=== PATIENT | male | born 1960 | race Caucasian/White ===

== ENCOUNTER 2016-07-21 17:09 | Emergency (ER) | payer OTHER ==
[~2016-07-21] VITALS: Ht 172.7 cm; Wt 124.8 kg
[~2016-07-21 17:09] MED LIST: ALBU1AER9 INH; CYAN10004 PO; ENAL10TA88 PO; EXEN1INJ3 SQ; GLC850 PO; GLIP-199 PO; HYG/25 PO; MULTTAB5 PO; NRN800 PO; OXYC-164 PO; POTA10CA28 PO; PRAM0.129 PO; SIMV10TA2 PO; VLT50 PO
[2016-07-21 17:14] VITALS: TEMP 36.7; Ht 172.7 cm; Wt 124.8 kg
[2016-07-21] MEDS ORDERED: CLON0.5T3 PO (17:33)
[2016-07-21] MEDS ORDERED: OXYC-164 PO (17:33)
[2016-07-21] MEDS ORDERED: OXYC20TA50 PO (17:33)
--- NOTE | 2016-07-21 18:13 | EMERGENCY ROOM VISIT NOTE ---
ED Visit Note First contact with patient: 17:19 The patient was seen and examined with Dewayne Brennan PA-C. I agree with the history, physical and findings. Please see the note for disposition and details. The patient had a negative compression test. He had a positive Spurling on the left. Distraction test was negative. He was neurovascularly intact. He is on a significant amount of pain medication and is under good control pain management. He was upset that pain management could not addresses issues 24 7. I had several pertinent questions for the patient but he insisted on starting at the very beginning, when he was 20 years old and tried to tell me the exact story. He had done this with Dewayne and Dewayne had spent a significant amount of time with him going through all the details and he summarizes forming. The patient has significant pain. He is pending surgery at [facility]. The patient is on a contract with pain management. As I tried to direct the patient to answer specific questions for me he kept going back to his story and was not answering the questions. Unfortunately there was many patients in the emergency department and one that was critically ill and I had to attend to this patient immediately. When I asked him to focus on the details as asking him the patient refused to answer anymore questions stating that no one gives his any time. I did try to reassure him that the information that he provided to Dewayne over the extensive interview and history was the same and documented. The patient would not answer any further questions and therefore this limits our ability to treat him. He did not want anything else done and wanted to be discharged. The patient has demonstrated no significant defect in the decision-making capacity to make choices. The encounter had a good level of communication with language the patient can easily understand. I feel trust was present and conveyed that our action/intentions were the best interest of the patient. The patient was given all relevant information and reiterated the explained risks and benefits. The patient would not explain his reasoning for refusing treatment. The patient possesses and expresses a set of values and goals, the ability to communicate and understand, and an ability to reason and deliberate. Despite acting emphatically, attentively and with the utmost patient's the patient declined further treatment. I offered options, negotiated, and explored every reasonable choice. I must respect the patient's autonomy and that they feel that their choices are best for them despite the associated risks of leaving without completing the evaluation.
[2016-07-21 18:24] VITALS: BP 168/82; PULSE 66; O2SAT 95
--- NOTE | 2016-07-22 02:01 | EMERGENCY ROOM VISIT NOTE ---
ED Visit Note First contact with patient: 17:19 Chief Complaint: Left arm pain. History of Present Illness: Mr. Redd is a 55-year-old white male who ambulates into the ED accompanied by a male friend complaining of left lower arm pain. Mr. Redd provided an extensive history of ongoing cervical disc disease starting when he was in his 20s. He does report that he is seeing a back specialist at [facility] and then go who is to perform surgery on his cervical disc disease. He then goes on to report that he is under the care of pain management and has been taking OxyContin and oxycodone for his ongoing pain but is still having pain. He reports he contacted pain management to increase his pain medications and he reports they refused. Patient reports over the last few days she has been having increasing pain over the medial aspect of the mid to lower forearm and into the left side of the hand. He reports a day before the onset of pain he brushed his arm up against something that he could not remember but did not feel he significantly injured this area. He describes his pain as a deep achy sensation extending from the elbow to the wrist. He rates his discomfort 10/10. His pain is nonradiating. He has not identified any aggravating or alleviating factors related to the pain. He reports she's been taking his prescribed medications without relief of his discomfort. Associated with his pain he reports he is having hand paresthesias in all the fingers of his left hand. He also reports when he turns his neck slightly to the right he feels clicking and popping in the neck. This does not increase his discomfort. He denies fevers, chills, sweats, skin eruptions, skin color changes, left upper extremity weakness/numbness/tingling, shortness of breath, abdominal pain , nausea/vomiting, decreased appetite, or swelling Review of Systems: As noted above in history of present illness. 8 body systems were reviewed and found to be negative as noted above. Past Medical History: (1) Asthma, Unspecified (2) Chronic back pain (3) Chronic low back pain (4) Diabetes (5) Dizziness (6) Dyslipidemia (7) HTN (hypertension) (8) Left flank pain (9) Morbid Obesity (10) Sinusitis Surgical Problems: (1) Hx of cholecystectomy (2) S/P ventral herniorrhaphy Current Medications: Medications Dose Route/Sig Max Daily Dose Days Date Category Oxycodone Hcl 10 Mg Tab 1 Tab PO QID 07/21/16 Reported Klonopin (Clonazepam) 0.5 Mg Tab 0.25 Mg PO BID 07/21/16 Reported Oxycontin (Oxycodone Hcl) 20 Mg Tab 20 Mg PO BID 07/21/16 Reported Metformin HCl 850 Mg Tab 1 Tab PO BID 01/07/16 Reported Centrum (Multiple Vitamins W/ Minerals) 1 Tab Tab 1 Tab PO DAILY 08/27/15 Reported Glipizide Er (Glipizide) 10 Mg Tab 1 Tab PO DAILY 08/27/[address] (Diclofenac Sod) 50 Mg Tabec 50 Mg PO DAILY 05/25/15 Reported Mirapex (Pramipexole Dihydrochloride) 0.125 Mg Tab 0.125 Mg PO DAILY 05/25/15 Reported Bydureon (Exenatide) 2 Mg Inj 2 Mg SQ WK 05/25/15 Reported Hygroton (Chlorthalidone) 25 Mg Tab 12.5 Mg PO BID 05/25/15 Reported Gabapentin 800 Mg Tab 800 Mg PO BID 05/25/15 Reported Proair Hfa (Albuterol) Aers 2 Puffs INH Q4H PRN 04/25/13 Reported Micro-K Ext Rel (Potassium Chloride) 10 Meq Capcr 10 Meq PO BID 04/25/13 Reported Vasotec (Enalapril Maleate) 10 Mg Tab 10 Mg PO DAILY 07/13/12 Reported Zocor (Simvastatin) 10 Mg Tab 10 Mg PO QPM 07/13/12 Reported Vitamin B-12 1000 Mcg (Cyanocobalamin) 1,000 Mcg Tab 1,000 Mcg PO Q2D 11/26/11 Reported Allergies to Medications: Diflunisal. Social History: Patient is not currently employed; he lives with his and feels safe in his home environment; he denies alcohol use. Physical Examination: Vital Signs: Date Time Temp Pulse Resp B/P Pulse Ox O2 Delivery O2 Flow Rate FiO2 07/21/16 18:24 66 18 168/82 95 07/21/16 17:14 36.7 69 18 176/85 95 Room Air GENERAL: 55-year-old male in mild distress due to pain, nontoxic-appearing, afebrile and hemodynamically stable. NEUROLOGICAL: Awake, alert and oriented to person, place and time. Answering questions appropriately and following commands. Normal gait. Good hand eye coordination. BACK: Mild diffuse tenderness throughout the lower cervical and upper thoracic spine. No bony deformities, bony crepitus, swelling, ecchymosis or step-offs. Full range of motion of the cervical spine. THORAX: Lungs sounds are clear to auscultation and equal bilaterally with symmetrical chest wall. ABDOMEN: Obese, soft and nontender. Decreased bowel sounds in all quadrants. No guarding, rigidity or organomegaly. RIGHT UPPER EXTREMITY: No gross bony deformity. No tenderness throughout the joints. No swelling or erythema within the joints. Mild tenderness from the right elbow extending distally to the wrist. No skin eruptions. Full range of motion in flexion and extension of the elbow, pronation and supination of forearm, flexion, extension and radial and ulnar deviations of the wrist. Throughout the hand the skin was warm and pink and capillary refill is brisk. He was able to distinguish light sensations in all dermatomes. Pulses were intact and equal bilaterally. Was not able to produce deep tendon reflexes. ED Course: Patient is assessed as noted above. Patient was educated about today's findings. Patient's case was reviewed with Dr. Sheffield; he apparently assessed the patient we agreed on diagnostic approach, treatment, disposition and plan. Patient was educated about today's findings and instructed on his treatment plan ; he verbalizes understanding and agreement with this plan although he was upset that no additional narcotics would be prescribed. Clinical Impression: Cervical radiculopathy. Disposition: Patient discharged home in stable condition; prior to departure he was reassessed and subjectively reported he was feeling the same. Plan: Patient was encouraged to continue his current medications as prescribed. Patient was encouraged to follow-up with his pain management team or his surgical team for reevaluation and continued care and treatment. Patient was encouraged return the ED for worsening pain, fevers, arm weakness/ numbness or any new/concerning symptoms.
[2016-08-22] MEDS ORDERED: SERT50TA PO (09:30)
== END 2016-07-21 18:25 | disposition home or self-care (01) ==
LOC: C.EDB 17:11 → C.EDD 18:25
DX: M54.12 Radiculopathy, cervical region (principal); M50.90 Cervical disc disorder, unspecified, unspecified cervical region; R20.9 Unspecified disturbances of skin sensation; G89.29 Other chronic pain; M54.5 Low back pain; E11.9 Type 2 diabetes mellitus without complications; E78.5 Hyperlipidemia, unspecified; I10 Essential (primary) hypertension; E66.01 Morbid (severe) obesity due to excess calories

== ENCOUNTER 2017-06-09 05:26 | Emergency (ER) | payer OTHER ==
[~2017-06-09] VITALS: Ht 172.7 cm; Wt 140.1 kg
[~2017-06-09 05:26] MED LIST changes: +CLON0.5T3 PO; -GLC850 PO; +METF850T10 PO; +OXYC20TA50 PO; +PRAM0.1212 PO; -PRAM0.129 PO; +SERT50TA PO
[2017-06-09 05:33] VITALS: Ht 172.7 cm; Wt 140.1 kg
[2017-06-09] MEDS ORDERED: ACETAMINOPHEN 500 MG TAB PO STA (05:43)
[2017-06-09] MEDS ORDERED: SODIUM CHLORIDE 0.9% 500ML 500 ML IV STA (05:43)
[2017-06-09] MEDS ORDERED: METOCLOPRAMIDE HCL INJ 5 MG/ML 2 ML VIAL IV STA (05:43)
[2017-06-09] MEDS ORDERED: DiphenhydrAMINE HCL 50 MG/ML VIAL IV STA (05:43)
[2017-06-09] MEDS ORDERED: KETOROLAC TROMETHAMINE 30 MG/ML VIAL IV STA (05:43)
[2017-06-09] MEDS ORDERED: ALBU18002 INH (06:12)
[2017-06-09] MEDS ORDERED: LIRA18IN INJ (06:12)
[2017-06-09] MEDS ORDERED: OXYC-738 PO (06:12)
[2017-06-09 06:18] LABS: BASO % 0.4 %; BASO ABS # 0.04 K/uL (0-0.2); EOS % 2.3 %; EOS ABS # 0.25 K/uL (0-0.5); HEMOGLOBIN 14.3 g/dL (14.0-18.0); IG# 0.03 K/uL (0.00-0.02); LYMPH % 16.4 %; LYMPH ABS # 1.75 K/uL (1.2-3.4); MEAN CELL VOLUME 87.5 fL (80-100); MEAN CORPUSCULAR HEMOGLOBIN 29.8 pg (25-34); MEAN PLATELET VOLUME 10.5 fL (7.4-10.4); MONO % 12.8 %; MONO ABS # 1.36 K/uL (0.11-0.59); NEUT % 67.8 %; NEUT ABS # 7.23 K/uL (1.4-6.5); PLATELET COUNT 223 K/uL (130-400); RED CELL DISTRIBUTION WIDTH CV 14.3 % (11.5-14.5); WHITE BLOOD COUNT 10.66 K/uL (4.8-10.8)
--- NOTE | 2017-06-09 06:34 | DIAGNOSTIC IMAGING REPORT ---
CHEST ONE VIEW PORTABLE CLINICAL HISTORY: feels sick COMPARISON STUDY: Chest radiograph January 07, 2016. FINDINGS: Lung volumes are normal. No pneumothorax or pleural effusion is noted. There is no consolidation. Note is made of mild cardiomegaly without evidence for pulmonary edema. Postoperative findings within the cervical spine are incidentally noted. IMPRESSION: No acute cardiopulmonary findings. Electronically signed by: Adama Roldan M.D. 06/09/2017 6:33 AM Dictated Date/Time: 06/09/2017 6:32 AM
[2017-06-09 06:35] LABS: ALBUMIN 3.7 gm/dl (3.4-5.0); ALT/SGPT 64 U/L (12-78); BLOOD UREA NITROGEN 15 mg/dl (7-18); CALCIUM 8.7 mg/dl (8.5-10.1); CARBON DIOXIDE 34 mmol/L (21-32); CREATININE 1.14 mg/dl (0.60-1.40); GLUCOSE 176 mg/dl (70-99); POTASSIUM 3.3 mmol/L (3.5-5.1); SODIUM 137 mmol/L (136-145)
[2017-06-09 06:38] LABS: INFLUENZA B ANTIGEN Neg for Influ B (NEG)
[2017-06-09 06:40] LABS: ALKALINE PHOSPHATASE 66 U/L (45-117); AST/SGOT 44 U/L (15-37); CKMB 1.1 ng/ml (0.5-3.6); TOTAL PROTEIN 7.9 gm/dl (6.4-8.2)
--- NOTE | 2017-06-09 06:46 | EMERGENCY ROOM VISIT NOTE ---
ED Visit Note First contact with patient: 05:38 I saw this patient in conjunction with Shauna Chowdhury PA-C. I agree with her decision making and treatment plan.
[2017-06-09 06:48] VITALS: BP 151/96; PULSE 89; TEMP 37.6; O2SAT 94
--- NOTE | 2017-06-09 06:49 | EMERGENCY ROOM VISIT NOTE ---
History First contact with patient: 05:38 Chief Complaint: PAIN (GENERALIZED) Stated Complaint: PAIN FOR HEAD TO TOES,FEELS LIKE FOOD POISON History of Present Illness The patient is a 56 year old male who presents to the Emergency Room with complaints of generalized body aches and pains for the past few weeks. Patient states he had neck surgery a few months ago. No complications currently. Patient states he thinks he might have the flu or a GI bug. Patient denies chest pain, dyspnea, abdominal pain, fever, chills, cough, congestion. He states that he might have pneumonia. He states he has not felt right for the past several months. He has not seen his family care doctor for this yet. He is tolerating p.o. fluids and food. Review of Systems An 10 system review of systems was completed with positives and pertinent negatives listed in the HPI. Past Medical/Surgical History Medical Problems: (1) Asthma, Unspecified (2) Chronic back pain (3) Chronic low back pain (4) Diabetes (5) Dizziness (6) Dyslipidemia (7) HTN (hypertension) (8) Left flank pain (9) Morbid Obesity (10) Sinusitis Surgical Problems: (1) Hx of cholecystectomy (2) S/P ventral herniorrhaphy Family History FH: cancer Social History Smoking Status: Never Smoker Alcohol Use: none Drug Use: none Marital Status: Housing Status: lives with significant other Occupation Status: disabled Current/Historical Medications Scheduled Chlorthalidone (Hygroton), 12.5 MG PO BID Clonazepam (Klonopin), 0.25 MG PO BID Cyanocobalamin (Vitamin B-12 1000 Mcg), 1,000 MCG PO Q2D Diclofenac Sod (Diclofenac Sodium Dr), 50 MG PO BID Enalapril (Vasotec), 10 MG PO DAILY Exenatide (Bydureon), 2 MG SQ WK Gabapentin (Gabapentin), 800 MG PO QID Glipizide (Glipizide Er), 1 TAB PO DAILY Metformin HCl (Metformin HCl), 1 TAB PO BID Multiple Vitamins W/ Minerals (Centrum), 1 TAB PO DAILY Oxycodone Hcl (Oxycontin), 20 MG PO BID Oxycodone Hcl (Oxycodone Hcl), 1 TAB PO QID Potassium Chloride (Micro-K Ext Rel), 10 MEQ PO BID Pramipexole (Mirapex), 0.125 MG PO DAILY Sertraline (Zoloft), 1 TAB PO DAILY Simvastatin (Zocor), 10 MG PO QPM Scheduled PRN Albuterol (Proair Hfa), 2 PUFFS INH Q4H PRN for Wheezing Physical Exam Vital Signs Date Time Temp Pulse Resp B/P (MAP) Pulse Ox O2 Delivery O2 Flow Rate FiO2 06/09/17 05:33 37.8 99 18 193/100 94 Room Air Physical Exam VITALS: Vitals are noted on the nurse's note and reviewed by myself. Vital signs low-grade fever and hypertensive. GENERAL: Pleasant male ambulating without difficulties, in no acute distress, nondiaphoretic, well-developed well-nourished. SKIN: The skin was without rashes, erythema, edema, or bruising. There is no tenting of the skin. Capillary reflex less than 2 seconds. HEAD: Normocephalic atraumatic. EARS: External auditory canals clear, tympanic membranes pearly lopez without erythema or effusion bilaterally. EYES: Pupils equal round and reactive to light and accommodation. Conjunctivae without injection, sclerae without icterus. Extraocular movements intact. NOSE: Patent, turbinates without inflammation or discharge. No sinus tenderness. MOUTH: Mucous membranes moist. Pharynx without erythema or exudate. Uvula midline. Airway patent. Tongue does not deviate. NECK: Supple without nuchal rigidity. No lymphadenopathy. No thyromegaly. Cervical spine is nontender. No JVD. HEART: Regular rate and rhythm LUNGS: Clear to auscultation bilaterally without wheezes, rales or rhonchi. No retractions or accessory muscle use. ABDOMEN: Positive bowel sounds x 4. Normal tympanic percussion. Soft, protuberant, obese, nontender, without masses or organomegaly. Johnson sign negative. No guarding or rebound tenderness. No CVA tenderness MUSCULOSKELETAL: No muscle atrophy, erythema, or edema noted. NEURO: Patient was alert and oriented to person place and time. Normal sensation to light and sharp touch. No focal neurological deficits. Medical Decision & Procedures Laboratory Results Test 06/09/17 05:43 Creatine Kinase MB Ratio (0-3.0) ED Course Prior records/ancillary studies reviewed and summarized above. Nursing notes reviewed. Additional history obtained from family. The patient's history was concerning for generalized body aches and pains for the past few months. Differential diagnosis: Etiologies such as metabolic, infection, hypo/hyperglycemia, electrolyte abnormalities, cardiac sources, intracerebral event, toxicologic, neurologic, as well as others were entertained. Physical examination: As above. ER treatment provided: IV Lock Tylenol, Reglan, Benadryl, IV fluids On reassessment the patient felt better. Diagnostics interpretation by me: ECG: Poor baseline, normal sinus, normal intervals, no acute ST-T wave changes. Impression sinus tachycardia of 100 interpreted by myself The labs revealed negative flu. Hyperglycemia without DKA. Stable H&H. Negative troponin. Imaging studies: Chest x-ray with no acute consolidation, pneumothorax or free of my interpretation Exam and history seem consistent with patient's ongoing body aches and pains and nausea. He does suffer from fibromyalgia. This could be exacerbation of this. He felt better to be medicated as above. No pneumonia. He has had poorly controlled diabetes for quite some time. He states his sugars about normal for him. He was advised to keep better control of his blood sugars and see family care in the next few days. Patient did not have acute abdomen on exam. He is well-appearing. He is tolerating fluids. He was advised to return to the ER immediately for chest pain, difficulty breathing, abdominal pain, worsening signs or symptoms or as needed. By the evaluation outlined above emergent etiologies such as infection, electrolyte abnormalities, cardiac sources, intracerebral event, toxologic, neurologic, abnormalities blood glucose , metabolic, as well as others were deemed relatively unlikely. The pt informed about the findings as listed above. All questions were answered and pleased with the treatment. Return instructions were outlined and the patient was discharged in stable condition. Referral: The patient was referred back to primary care physician for follow-up in 2 to 3 days for a recheck of the current condition. Case reviewed with my attending The chart was completed utilizing [employer] Speech voice recognition software. Grammatical errors, random word insertions, pronoun errors, and incomplete sentences are an occassional consequence of this system due to software limitations, ambient noise, and hardware issues. Any formal questions or concerns about the content, text, or information contained within the body of this dictation should be directly addressed to the physician press assistant and feeder for clarification. Medical Decision As above Medication Reconcilliation Current Medication List: was personally reviewed by me Blood Pressure Screening Patient's blood pressure: Elevated blood pressure Blood pressure disposition: Elevated BP felt to be situational Impression Primary Impression: Body aches Additional Impressions: Nausea Hyperglycemia Departure Information Dispostion Home / Self-Care Condition GOOD Referrals No Doctor, Assigned (PCP) Patient Instructions My [facility] Care Thread Additional Instructions Monitor your blood sugar. It was high today. Ibuprofen(Motrin, Advil) may be used for fever or pain. Use 600mg every six hours as needed. Take with food. Avoid using more than 2400mg in a 24 hour period. Do not use 2400mg per day for more than three consecutive days without physician direction. Prolonged inappropriate use can lead to stomach upset or ulcers. (AND/OR) Acetaminophen(Tylenol) may be used for fever or pain. Use 1000mg every six hours as needed. Avoid using more than 3000mg in a 24 hour period. Rest and drink plenty of fluids as tolerated. Continue current medications. Avoid strenuous activities and anything that worsens your pain. Resume normal activities once your symptoms resolve. Return to the ER immediately for abdominal pain, vomiting, fevers, chest pains, difficulty breathing, worsening of your condition, or as needed. Follow up with your primary physician in 2-3 days for a recheck of your current condition. Problem Qualifiers
== END 2017-06-09 07:10 | disposition home or self-care (01) ==
LOC: C.EDB 05:29 → C.EDA 07:10
DX: M79.1 Myalgia (principal); R11.0 Nausea; E11.65 Type 2 diabetes mellitus with hyperglycemia; J45.909 Unspecified asthma, uncomplicated; E78.5 Hyperlipidemia, unspecified; I10 Essential (primary) hypertension; Z79.899 Other long term (current) drug therapy

== ENCOUNTER 2019-03-11 14:21 | Inpatient (IN) ==
[2019-03-11] MEDS ORDERED: SODIUM CHLORIDE 0.9% 1000ML 1,000 ML IV ONE (16:07)
[2019-03-11] MEDS ORDERED: DAPTOmycin 500 MG VIAL IV STA (16:11)
[2019-03-11] MEDS ORDERED: PIPERACILLIN/TAZOBACTAM 4.5 GM/120 ML BAG IV ONE (16:16)
[2019-03-11] MEDS ORDERED: PIPERACILL/TAZOBAC CONSULT ACTIVE PRN (16:16)
[2019-03-11 16:48] LABS: Appearance Urine Clear (Clear); Bacteria Urine Automated Negative (Negative); Bilirubin Urine Negative (Negative); Blood Urine Negative (Negative); Color Urine Dark Yellow; Glucose Urine UA Negative (Negative); Ketones Urine Negative (Negative); Leukocyte Esterase Urine Trace (Negative); Nitrite Urine Negative (Negative); Protein Urine Trace (Negative); RBC Urine Automated 0-4 /hpf (0-4); Specific Gravity Urine 1.022 (1.000-1.030); Urobilinogen Urine Negative (Negative)
--- NOTE | 2019-03-11 16:55 | Emergency Department Note ---
ED Visit Note I saw this patient in conjunction with Dr. Car, and agree with the impression and assessment as outlined in his documentation. For all pertinent findings and details regarding this patient's care please see his documentation.. Resident Activity Tracking Resident Involvement: Resident Care Provided Care Provided: Adult ED
[2019-03-11 16:57] LABS: Basophils # (auto) 0.02 K/uL (0-0.2); Basophils % (auto) 0.1 %; Eosinophils # (auto) 0.14 K/uL (0-0.5); Eosinophils % (auto) 0.9 %; Hematocrit (blood only) 35.4 % (42-52); Hemoglobin 11.5 g/dL (14.0-18.0); Immature Granulocytes # (auto) 0.05 K/uL (0.00-0.02); Immature Granulocytes % (auto) 0.3 %; Lymphocytes # (auto) 2.02 K/uL (1.2-3.4); Lymphocytes % (auto) 13.6 %; Mean Corpuscular Hemoglobin 28.5 pg (25-34); Mean Corpuscular Hgb Conc 32.5 g/dL (32-36); Mean Corpuscular Volume 87.8 fL (80-100); Mean Platelet Volume 10.5 fL (7.4-10.4); Monocytes # (auto) 1.32 K/uL (0.11-0.59); Monocytes % (auto) 8.9 %; Neutrophils # (auto) 11.33 K/uL (1.4-6.5); Neutrophils % (auto) 76.2 %; Platelet Count 299 K/uL (130-400); RDW Standard Deviation 48.6 fL (36.4-46.3); Red Blood Count 4.03 M/uL (4.7-6.1); White Blood Count 14.88 K/uL (4.8-10.8)
[2019-03-11] MEDS ORDERED: DAPTOmycin 375 MG in SYRINGE 0 ML IV ONE (17:00)
[2019-03-11 17:17] LABS: INR 2.1 (0.9-1.1); Partial Thromboplastin Ratio 1.7; Prothrombin Time 20.4 Seconds (9.0-12.0)
[2019-03-11 17:23] LABS: BUN Creatinine Ratio 11.5 (10-20); Calcium 8.8 mg/dl (8.5-10.1); Creatinine Clr Calc Pharmacy 105.5 ml/min; Est GFR (African American) 91.3; Est GFR (Non-African American) 78.8; Potassium 3.8 mmol/L (3.5-5.1)
[2019-03-11 17:25] LABS: Albumin Globulin Ratio 0.6 (0.9-2); Globulin 5.3 gm/dl (2.5-4.0); Total Protein 8.3 gm/dl (6.4-8.2)
[2019-03-11] MEDS ORDERED: IOVERSOL 100ml IV PRN (18:07)
[2019-03-11 18:10] LABS: Partial Thromboplastin Time 46.3 Seconds (21.0-31.0)
--- NOTE | 2019-03-11 18:28 | CT Scan Report ---
CT abd pelvis IV con only CT DOSE: 1316.93 mGycm HISTORY: Pain. Edema. surgical site cellulitis TECHNIQUE: Multiaxial CT images of the abdomen and pelvis were performed following the use of intrave nous contrast. A dose lowering technique was utilized adhering to the principles of ALARA. COMPARISON STUDY: 05/25/2015 FINDINGS: Lung bases are clear. Fatty replacement of the liver. Prior cholecystectomy. Pancreas is unremarkable. The upper abdominal bowel pattern is nonobstructive. Interval midline incision. Evidence for anterior abdominal soft tissue cellulitis. At the incision site is a soft tissue prominence measuring 3.3 x 4.6 cm. This contains at least one s mall air component. The appearance suggests phlegmon versus a focal dense cellulitis versus abscess. Bladder is midline. No free fluid within the abdomen or pelvic region. Nonobstructive bowel pattern. IMPRESSION: 1. Interval midline incision with evidence for soft tissue and air residual between the skin surface and anterior abdominal wall. 2. This measures 3.3 x 4.6 cm. 3. This soft tissue prominence presumably represents a postprocedural soft tissue abscess, phlegmon, versus dense cellulitis. 4. Diffuse anterior and lateral abdominal wall cellulitis-type change. ACT 112: Negative or not required by law. The above report was generated using voice recognition software. It may contain grammatical, syntax or spelling errors. Electronically signed by: Gerson Browne M.D. 03/11/2019 6:27 PM
--- NOTE | 2019-03-11 18:57 | Emergency Department Note ---
Entered by Lennox Obregon acting as a scribe for Torito Car MD History of Present Illness General Chief complaint: Referred by Doctor Stated complaint: ABDOMINAL INCISION INFECTED, REFERRED BY DOC Time Seen by Provider: 03/11/19 15:28 Source: patient Limitations: no limitations History of Present Illness Onset (ago): month(s) 1 Location: abdomen Severity: mild Pain Consistency: + other (worsening) Maximum Pain Intensity: 3 Quality: + constant (redness) Associated symptoms: + rash Treatments prior to arrival: other (antibiotics) The patient is a 58 year old male who presents to the Emergency Room with complaints of constant and worsening rash starting a month ago. He states he has minimal pain. The patient states he had a hernia repaired on January 14. He states he had a mesh placed and did not have any complications until a month ago. He notes he was given 3 weeks of oral cephalexin. He states the redness on his abdomen was regressing until last week. He states he had his rash demarcated two days ago and states the rash is bigger than that now. He states he has a c ollection of puss underneath his skin. He states he was sent to the ED today by his PCP, Dr. Sweet. He notes he received a shot of Rocephin two days ago and yesterday. He states he has been receiving Ceftriaxone and Keflex over the past couple days. He states he has A-Fib and has been taking Warfarin. The patient denies having fevers, SOB, difficulty with urination, and vomiting. Home Medications Home Medications Medication Instructions Recorded Confirmed Type Victoza 2-Cody 1.8 mg SUBCUT QA 11/14/17 03/11/19 History glipizide 20 mg PO BID 11/14/17 03/11/19 History multivitamin 1 tab PO DAILY 11/14/17 03/11/19 History pramipexole [Mirapex] 0.125 mg PO HS 11/14/17 03/11/19 History gabapentin 800 mg PO BID 01/02/18 03/11/19 History metformin 1,000 mg PO BID 01/02/18 03/11/19 History potassium chloride 20 meq PO DAILY 01/02/18 03/11/19 History atorvastatin 40 mg PO QPM 10/08/18 03/11/19 History enalapril maleate 10 mg PO HS 10/08/18 03/11/19 History enalapril maleate 20 mg PO QAM 10/08/18 03/11/19 History torsemide 10 mg PO BID 10/08/18 03/11/19 History warfarin 10 mg PO MOFR 10/08/18 03/11/19 History buprenorphine HCl 2 mg SUBLINGUAL BID PRN 03/11/19 03/11/19 History buprenorphine HCl 6 mg SUBLINGUAL BID 03/11/19 03/11/19 History cephalexin [Keflex] 500 mg PO QID 03/11/19 03/11/19 History clotrimazole 1 applic TOPICAL BID PRN 03/11/19 03/11/19 History cyanocobalamin (vitamin B-12) 1,000 mcg PO DAILY 03/11/19 03/11/19 History [Vitamin B-12] folic acid 1 mg PO DAILY 03/11/19 03/11/19 History lidocaine HCl [Aspercreme 1 applic TOPICAL BID PRN 03/11/19 03/11/19 History (lidocaine)] loratadine 10 mg PO DAILY PRN 03/11/19 03/11/19 History metoprolol succinate [Toprol XL] 50 mg PO DAILY 03/11/19 03/11/19 History naloxone [Narcan] 4 mg INTRANASAL UD PRN 03/11/19 03/11/19 History nystatin-triamcinolone 1 applic TOPICAL BID PRN 03/11/19 03/11/19 History ondansetron HCl 4 mg PO Q6H PRN 03/11/19 03/11/19 History polyethylene glycol 3350 [Miralax] 17 g PO DAILY PRN 03/11/19 03/11/19 History spironolactone [Aldactone] 25 mg PO DAILY 03/11/19 03/11/19 History warfarin 7.5 mg PO SUTUWETHSA 03/11/19 03/11/19 History Allergies Allergy/AdvReac Type Severity Reaction Status Date / Time diflunisal Allergy Unknown SEIZURE Verified 03/11/19 19:04 Past Med/Surg History Medical History Anxiety (Chronic) Atrial flutter (Chronic) Chronic back pain (Chronic) Depression (Chronic) Diabetes mellitus, type II (Chronic) Fibromyalgia (Chronic) HLD (hyperlipidemia) (Chronic) HTN (hypertension) (Chronic) Morbid obesity Neck pain (Chronic) Obesity (Chronic) TINO (obstructive sleep apnea) (Chronic) Paroxysmal atrial fibrillation (Chronic) Peripheral neuropathy (Chronic) Seizure DIFLUNISAL REACTION- 2007 PER S RECORDS Surgical History H/O cervical discectomy (Resolved) H/O ventral hernia repair History of cholecystectomy (Resolved) LAP Family History Other Cancer Hypertension Social History Preferred Language: Japanese Communication Ability: Effective 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 and A total of 10 systems reviewed and were otherwise negative Physical Exam Vital Signs Vital Signs - 24 hr 03/11/19 14:35 03/11/19 16:21 03/11/19 17:54 Temperature 37.2 C Temperature Source Oral Pulse Rate 87 Pulse Rate [Radial] 86 83 Pulse Rhythm [Radial] Regular Regular Respiratory Rate 20 18 16 Respiratory Effort / Characteristics Non-Labored Spontaneous Non-Labored Non-Labored Respiratory Depth Normal Normal Normal Respiratory Pattern Regular Regular Regular Blood Pressure 159/84 H Blood Pressure [Left Arm] 132/68 136/70 Blood Pressure Mean 109 Blood Pressure Mean [Left Arm] 89 92 Pulse Oximetry 99 98 97 Oxygen Delivery Method Room Air Room Air Room Air Sepsis Recent Fever Within 48 Hours No Sepsis Action Taken by Nursing No Action Required 03/11/19 18:41 03/11/19 19:00 Temperature Temperature Source Pulse Rate Pulse Rate [Radial] 89 101 H Pulse Rhythm [Radial] Regular Regular Respiratory Rate 18 20 Respiratory Effort / Characteristics Non-Labored Non-Labored Respiratory Depth Normal Normal Respiratory Pattern Regular Regular Blood Pressure Blood Pressure [Left Arm] 143/70 H 135/82 Blood Pressure Mean Blood Pressure Mean [Left Arm] 94 99 Pulse Oximetry 98 98 Oxygen Delivery Method Room Air Room Air Sepsis Recent Fever Within 48 Hours Sepsis Action Taken by Nursing GENERAL: Patient is in no acute distress. HEENT: No acute trauma, normocephalic atraumatic, mucous membranes moist, no nasal congestion, no scleral icterus. NECK: No stridor, no adenopathy, no meningismus, trachea is midline. LUNGS: Clear to auscultation bilaterally, no wheeze, no rhonchi, breath sounds equal. HEART: Without murmurs gallops or rubs, regular rate and rhythm. ABDOMEN: Extensive abdominal wall erythema and warmth extending from the umbilicus. It has spread beyond the demarkations that have been placed. In the center of the erythema is a 3 cm area of fluctuance which is slightly tender. No active drainage. No abdominal peritonitis. EXTREMITIES: No cyanosis, full range of motion of all the joints without pain or difficulty, no signs for acute trauma. Mild bilateral pedal edema. NEUROLOGIC: Oriented x 3, no acute motor or sensory deficits, no focal weakness. SKIN: No rash, no jaundice, no diaphoresis. Course Course 1610: The patient was evaluated in room B11B, and a complete history and physical examination were performed along with a resident, Dr. Dean. 1830: The resident discussed the patient's case with Mady GIBSON. Dr. Carlotta Alegria [facility] Hospitalist will evaluate the patient for further management. 0: The resident discussed the patient's case with Dr. Antoine - General Surgery. Dr. Antoine is aware of the patient's situation and he states he will make Dr. Vance aware of the situation tomorrow morning. Administered Medications Ioversol (Optiray 320 100ml) 90 ml IV ONCE PRN PRN Reason: Interaction Checking Stop: 03/15/19 18:06 Last Admin: 03/11/19 18:08 Dose: 90 ml Documented by: [id number] Discontinued Medications Sodium Chloride (Nss 1000ml) 1,000 mls @ 999 mls/hr IV .Q1H1M ONE Stop: 03/11/19 17:07 Last Infusion: 03/11/19 17:49 Dose: 0 mls/hr Documented by: [id number] Admin: 03/11/19 16:39 Dose: 999 mls/hr Documented by: [id number] Piperacillin Sod/Tazobactam Sod (Zosyn) 4.5 gm in 120 mls @ 240 mls/hr IV NOW ONE Stop: 03/11/19 16:45 Last Infusion: 03/11/19 18:42 Dose: 0 mls/hr Documented by: [id number] Admin: 03/11/19 17:52 Dose: 240 mls/hr Documented by: [id number] Daptomycin 375 mg/ Syringe 7.5 mls @ 3.75 mls/min IV ONE ONE; Protocol Stop: 03/11/19 17:01 Last Admin: 03/11/19 17:52 Dose: 3.75 mls/min Documented by: [id number] Medical Decision Making Differential Diagnosis Differential Diagnosis includes but is not limited to cellulitis, abscess, failed outpatient treatment, renal failure, dehydration, UTI, and electrolyte imbalance. Medical Records Attestation: I reviewed the patient's medical records. Home Medications Current Medication List: was personally reviewed by me Laboratory Data Attestation: I reviewed the patient's lab results. Result diagrams: 03/11/19 16:37 03/11/19 16:37 Lab Results 03/11/19 03/11/19 03/11/19 Range/Units 16:21 16:37 16:37 WBC 14.88 H (4.8-10.8) K/uL RBC 4.03 L (4.7-6.1) M/uL Hgb 11.5 L (14.0-18.0) g/dL Hct 35.4 L (42-52) % MCV 87.8 (80-100) fL MCH 28.5 (25-34) pg MCHC 32.5 (32-36) g/dL RDW Std Deviation 48.6 H (36.4-46.3) fL RDW Coeff of Killian 15.0 H (11.5-14.5) % Plt Count 299 (130-400) K/uL MPV 10.5 H (7.4-10.4) fL Immature Gran % (Auto) 0.3 % Neut % (Auto) 76.2 % Lymph % (Auto) 13.6 % Armstrong % (Auto) 8.9 % Eos % (Auto) 0.9 % Baso % (Auto) 0.1 % Immature Gran # (Auto) 0.05 H (0.00-0.02) K/uL Neut # (Auto) 11.33 H (1.4-6.5) K/uL Lymph # (Auto) 2.02 (1.2-3.4) K/uL Armstrong # (Auto) 1.32 H (0.11-0.59) K/uL Eos # (Auto) 0.14 (0-0.5) K/uL Baso # (Auto) 0.02 (0-0.2) K/uL PT (9.0-12.0) Seconds INR (0.9-1.1) APTT (21.0-31.0) Seconds PTT Ratio Sodium (136-145) mmol/L Potassium (3.5-5.1) mmol/L Chloride (98-107) mmol/L Carbon Dioxide (21-32) mmol/L Anion Gap (3-11) BUN (7-18) mg/dl Creatinine (0.6-1.4) mg/dl Est Cr Clr Drug Dosing ml/min Est GFR ( Amer) Est GFR (Non-Af Amer) BUN/Creatinine Ratio (10-20) Glucose (70-99) mg/dl Lactate 1.3 (0.4-2.0) mmol/L Calcium (8.5-10.1) mg/dl Total Bilirubin (0.2-1) mg/dl AST (15-37) U/L ALT (12-78) U/L Alkaline Phosphatase (45-117) U/L Total Protein (6.4-8.2) gm/dl Albumin (3.4-5.0) gm/dl Globulin (2.5-4.0) gm/dl Albumin/Globulin Ratio (0.9-2) Urine Color Dark Yellow Urine Appearance Clear (Clear) Urine pH 7.0 (4.5-7.5) Ur Specific Irving 1.022 (1.000-1.030) Urine Protein Trace H (Negative) Urine Glucose (UA) Negative (Negative) Urine Ketones Negative (Negative) Urine Blood Negative (Negative) Urine Nitrite Negative (Negative) Urine Bilirubin Negative (Negative) Urine Urobilinogen Negative (Negative) Ur Leukocyte Esterase Trace H (Negative) Urine WBC (Auto) 1-5 (0-5) /hpf Urine RBC (Auto) 0-4 (0-4) /hpf U Hyaline Cast (Auto) 1-5 (0-5) /lpf U Epithel Cells (Auto) 5-10 H (0-5) /lpf Urine Bacteria (Auto) Negative (Negative) 03/11/19 03/11/19 Range/Units 16:37 16:37 WBC (4.8-10.8) K/uL RBC (4.7-6.1) M/uL Hgb (14.0-18.0) g/dL Hct (42-52) % MCV (80-100) fL MCH (25-34) pg MCHC (32-36) g/dL RDW Std Deviation (36.4-46.3) fL RDW Coeff of Killian (11.5-14.5) % Plt Count (130-400) K/uL MPV (7.4-10.4) fL Immature Gran % (Auto) % Neut % (Auto) % Lymph % (Auto) % Armstrong % (Auto) % Eos % (Auto) % Baso % (Auto) % Immature Gran # (Auto) (0.00-0.02) K/uL Neut # (Auto) (1.4-6.5) K/uL Lymph # (Auto) (1.2-3.4) K/uL Armstrong # (Auto) (0.11-0.59) K/uL Eos # (Auto) (0-0.5) K/uL Baso # (Auto) (0-0.2) K/uL PT 20.4 H (9.0-12.0) Seconds INR 2.1 H (0.9-1.1) APTT 46.3 H* (21.0-31.0) Seconds PTT Ratio 1.7 Sodium 134 L (136-145) mmol/L Potassium 3.8 (3.5-5.1) mmol/L Chloride 98 (98-107) mmol/L Carbon Dioxide 33 H (21-32) mmol/L Anion Gap 3.0 (3-11) BUN 12 (7-18) mg/dl Creatinine 1.04 (0.6-1.4) mg/dl Est Cr Clr Drug Dosing 105.5 ml/min Est GFR ( Amer) 91.3 Est GFR (Non-Af Amer) 78.8 BUN/Creatinine Ratio 11.5 (10-20) Glucose 175 H (70-99) mg/dl Lactate (0.4-2.0) mmol/L Calcium 8.8 (8.5-10.1) mg/dl Total Bilirubin 1.0 (0.2-1) mg/dl AST 12 L (15-37) U/L ALT 21 (12-78) U/L Alkaline Phosphatase 66 (45-117) U/L Total Protein 8.3 H (6.4-8.2) gm/dl Albumin 3.0 L (3.4-5.0) gm/dl Globulin 5.3 H (2.5-4.0) gm/dl Albumin/Globulin Ratio 0.6 L (0.9-2) Urine Color Urine Appearance (Clear) Urine pH (4.5-7.5) Ur Specific Irving (1.000-1.030) Urine Protein (Negative) Urine Glucose (UA) (Negative) Urine Ketones (Negative) Urine Blood (Negative) Urine Nitrite (Negative) Urine Bilirubin (Negative) Urine Urobilinogen (Negative) Ur Leukocyte Esterase (Negative) Urine WBC (Auto) (0-5) /hpf Urine RBC (Auto) (0-4) /hpf U Hyaline Cast (Auto) (0-5) /lpf U Epithel Cells (Auto) (0-5) /lpf Urine Bacteria (Auto) (Negative) Imaging Data Radiologist's Impression: Radiology results as stated below per my review and the radiologist's interpretation: CT abd pelvis IV con only CT DOSE: 1316.93 mGycm HISTORY: Pain. Edema. surgical site cellulitis TECHNIQUE: Multiaxial CT images of the abdomen and pelvis were performed following the use of intravenous contrast. A dose lowering technique was utilized adhering to the principles of ALARA. COMPARISON STUDY: 05/25/2015 FINDINGS: Lung bases are clear. Fatty replacement of the liver. Prior cholecystectomy. Pancreas is unremarkable. The upper abdominal bowel pattern is nonobstructive. Interval midline incision. Evidence for anterior abdominal soft tissue cellulitis. At the incision site is a soft tissue prominence measuring 3.3 x 4.6 cm. This contains at least one small air component. The appearance suggests phlegmon versus a focal dense cellulitis versus abscess. Bladder is midline. No free fluid within the abdomen or pelvic region. Nonobstructive bowel pattern. IMPRESSION: 1. Interval midline incision with evidence for soft tissue and air residual between the skin surface and anterior abdominal wall. 2. This measures 3.3 x 4.6 cm. 3. This soft tissue prominence presumably represents a postprocedural soft tissue abscess, phlegmon, versus dense cellulitis. 4. Diffuse anterior and lateral abdominal wall cellulitis-type change. ACT 112: Negative or not required by law. The above report was generated using voice recognition software. It may contain grammatical, syntax or spelling errors. Electronically signed by: Gerson Browne M.D. 03/11/2019 6:27 PM Blood Pressure Blood Pressure Findings: Elevated blood pressure Blood Pressure Disposition: further management by hospitalist MDM Narrative There is a mild leukocytosis at 14,000, this would be consistent with infection. A mild anemia was noted. There is a normal platelet count. INR is elevated consistent with someone using Coumadin. No significant electrolyte abnormality or kidney failure. Lactic acid level was not elevated making sepsis less likely. No concerning liver enzyme elevation. Urinalysis does not show evidence for infection. Abdominal and pelvis CT shows an abdominal wall cellulitis with a small abdominal wall abscess versus phlegmon. On exam, the patient's abdominal wall erythema had spread past the demarcations. The patient was given IV daptomycin and IV Zosyn. He received 1 L of IV saline. The patient has an abdominal wall cellulitis with a potential small abscess molly kostas phlegmon. He has a white count elevation. He has failed outpatient treatment. He has failed ceftriaxone and Keflex. I do think a hospital stay is warranted. The on-call hospitalist was consulted. Case management has been involved. General surgery is aware of the findings. Patient is comfortable with hospitalization for this infection. Impression & Plan Abdominal wall cellulitis, Abdominal wall abscess, Failure of outpatient treatment, Leukocytosis Discharge Plan Visit Data Chief Complaint: Referred by Doctor Stated Complaint: ABDOMINAL INCISION INFECTED, REFERRED BY DOC ED Provider: Torito Car ED Midlevel Provider: Bon Dean Discharge Problem: Abdominal wall cellulitis, Abdominal wall abscess, Failure of outpatient treatment, Leukocytosis Patient Disposition: Being Evaluated by Hospitalist Forms Stand Alone Forms: My [facility] Prescriptions Prescriptions: No Action multivitamin Tablet 1 tab PO DAILY RF: 0 glipizide 10 mg Tablet 20 mg PO BID RF: 0 pramipexole [Mirapex] 0.125 mg Tablet 0.125 mg PO HS RF: 0 Victoza 2-Cody 0.6 mg/0.1 mL (18 mg/3 mL) Pen Injector 1.8 mg SUBCUT QAM RF: 0 gabapentin 800 mg Tablet 800 mg PO BID RF: 0 metformin 500 mg Tablet 1,000 mg PO BID RF: 0 potassium chloride 10 mEq Tablet Extended Release 20 meq PO DAILY RF: 0 atorvastatin 40 mg tablet 40 mg PO QPM RF: 0 enalapril maleate 20 mg tablet 20 mg PO QAM RF: 0 enalapril maleate 20 mg tablet 10 mg PO HS RF: 0 torsemide 20 mg tablet 10 mg PO BID RF: 0 warfarin 5 mg tablet 10 mg PO MOFR RF: 0 metoprolol succinate [Toprol XL] 50 mg tablet extended release 24 hr 50 mg PO DAILY RF: 0 ondansetron HCl 4 mg Tablet 4 mg PO Q6H PRN (Reason: Nausea) RF: 0 spironolactone [Aldactone] 25 mg tablet 25 mg PO DAILY RF: 0 cephalexin [Keflex] 500 mg Capsule 500 mg PO QID RF: 0 nystatin-triamcinolone 100,000-0.1 unit/g-% Cream 1 applic TOPICAL BID PRN (Reason: flare ups) RF: 0 polyethylene glycol 3350 [Miralax] 17 gram/dose Powder 17 g PO DAILY PRN (Reason: Constipation) RF: 0 clotrimazole 1 % Cream 1 applic TOPICAL BID PRN (Reason: flare ups) RF: 0 loratadine 10 mg Tablet 10 mg PO DAILY PRN (Reason: allergies) RF: 0 buprenorphine HCl 8 mg Tablet, Sublingual 6 mg SUBLINGUAL BID RF: 0 lidocaine HCl [Aspercreme (lidocaine)] 4 % Cream 1 applic TOPICAL BID PRN (Reason: Pain) RF: 0 Narcan 4 mg/actuation [place],Non-Aerosol 4 mg INTRANASAL UD PRN (Reason: overdose) RF: 0 cyanocobalamin (vitamin B-12) [Vitamin B-12] 1,000 mcg Tablet 1,000 mcg PO DAILY RF: 0 folic acid 1 mg Tablet 1 mg PO DAILY RF: 0 warfarin 5 mg tablet 7.5 mg PO SUTUWETHSA RF: 0 buprenorphine HCl 8 mg tablet, sublingual 2 mg SUBLINGUAL BID PRN (Reason: Pain) RF: 0 Referrals Referrals: Joseph Goodman MD [Primary Care Provider] - Discharge Problem: Leukocytosis Qualifiers: Leukocytosis type: unspecified Qualified Code(s): D72.829 - Elevated white blood cell count, unspecified The scribe's documentation has been prepared under my direction and personally reviewed by me in its entirety. I confirm that the note above accurately reflects all work, treatment, procedures, and medical decision making performed by me.
[2019-03-11] MEDS ORDERED: POLYETHYLENE (MIRALAX) 17 GM PACK PO PRN (20:40)
[2019-03-11] MEDS ORDERED: DEXTROSE 50% 50 ML SYRINGE IV PRN (20:40)
[2019-03-11] MEDS ORDERED: CARBOHYDRATES FOR HYPOGLYCEMIA PO PRN (20:40)
[2019-03-11] MEDS ORDERED: ACETAMINOPHEN 325 MG TAB PO PRN (20:40)
[2019-03-11] MEDS ORDERED: buprenorphine HCL 2 MG SUBL SL PRN (20:40)
[2019-03-11] MEDS ORDERED: GLUCOSE 10 TABS/TUBE PO PRN (20:40)
[2019-03-11] MEDS ORDERED: GLUCAGON FOR INJ 1 MG VIAL SQ PRN (20:40)
[2019-03-11] MEDS ORDERED: GLUCOSE 40% GEL 15 GM TUBE PO PRN (20:40)
--- NOTE | 2019-03-11 20:47 | History & Physical Report ---
Date of Service March 11, 2019 Assessment & Plan (1) Abdominal wall abscess: (2) Abdominal wall cellulitis: -Admit to [facility] -Patient presenting by referral to PCPs office for evaluation of failed outpatient treatment of abdominal cellulitis with abscess -Received IM Rocephin on 03/09 and 03/10 -In the ED, WBC 14.8K, CT ABD/pelvis suggesting 3.3 x 4.6 cm abscess along prior incision site from hernia repair 1 year ago -Afebrile, hemodynamically stable, normal lactate -Does not appear septic -S/p Dapto and Zosyn in the ED, will continue with -General surgery consult for possible I&D; Dr. Antoine notified by ED (3) Paroxysmal atrial fibrillation: -Heart rhythm auscultates to regular on exam -Mildly tachycardic - ? Due to pain, patient reports he is overdue for his evening dose of Subutex -Check EKG -Rate controlled on metoprolol, may need to increase dose -Anticoagulated on Coumadin, INR 2.1 (4) HTN (hypertension): -BP controlled, continue metoprolol (5) Diabetes mellitus, type II: -Hgb A1c 7.8 09/2018 -Hold oral agents and Victoza and utilize NovoLog per protocol hospitalized (6) Chronic back pain: -Currently managed on Subutex (7) HLD (hyperlipidemia): -Continue statin (8) Chronic diastolic CHF (congestive heart failure): -Appears euvolemic on exam -Continue torsemide and spironolactone (9) DVT prophylaxis: -Anticoagulated on Coumadin with therapeutic INR History of Present Illness Chief Complaint: Abdominal wall infection Primary Care Provider: Joseph Goodman MD 58-year-old male who presents to the ED for evaluation of an abdominal wall infection. Patient reports that approximately 6 months ago, his dog stepped on his stomach causing an abrasion over the scar of a prior hernia repair. Patient reports the scab never healed and he continued to pick at it. About 1 week ago, patient noticed increasing redness and warmth to his abdominal wall. Patient was seen at his PCPs office on 03/09 and given a dose of IM Rocephin. He was seen again on 03/10 and previously outlined area had improved and he was given another dose of IM Rocephin and instructed to start p.o. Keflex today. Redness started to worsen again and he was seen again at his PCPs office today. He was then sent to the ED for further evaluation. Patient reports a small amount of drainage from the scabbed over area. He denies fevers and chills. No chest pain. Has chronic exertional shortness of breath which is unchanged from baseline. No lightheadedness, dizziness, diaphoresis, syncopal events. Denies abdominal pain, nausea, vomiting, diarrhea. No urinary symptoms. In the ED, WBC 14.8K, afebrile, hemodynamically stable, normal lactate. CT ABD/pelvis is suggesting a possible 3.3 x 4.6 cm abscess. Patient was given IV Dapto, IV Zosyn, IVF. Allergies Allergy/AdvReac Type Severity Reaction Status Date / Time diflunisal Allergy Unknown SEIZURE Verified 03/11/19 19:04 rivaroxaban [From Xarelto] AdvReac Severe Rash Unverified 03/12/19 15:25 Home Medications Home Medications Medication Instructions Recorded Confirmed Type Victoza 2-Cody 1.8 mg SUBCUT QAM 11/14/17 03/11/19 History glipizide 20 mg PO BID 11/14/17 03/11/19 History multivitamin 1 tab PO DAILY 11/14/17 03/11/19 History pramipexole [Mirapex] 0.125 mg PO HS 11/14/17 03/11/19 History gabapentin 800 mg PO BID 01/02/18 03/11/19 History metformin 1,000 mg PO BID 01/02/18 03/11/19 History potassium chloride 20 meq PO DAILY 01/02/18 03/11/19 History atorvastatin 40 mg PO QPM 10/08/18 03/11/19 History enalapril maleate 10 mg PO HS 10/08/18 03/11/19 History enalapril maleate 20 mg PO QAM 10/08/18 03/11/19 History torsemide 10 mg PO BID 10/08/18 03/11/19 History warfarin 10 mg PO MOFR 10/08/18 03/11/19 History Narcan 4 mg INTRANASAL UD PRN 03/11/19 03/11/19 History buprenorphine HCl 2 mg SUBLINGUAL BID PRN 03/11/19 03/11/19 History buprenorphine HCl 6 mg SUBLINGUAL BID 03/11/19 03/11/19 History clotrimazole 1 applic TOPICAL BID PRN 03/11/19 03/11/19 History cyanocobalamin (vitamin B-12) 1,000 mcg PO DAILY 03/11/19 03/11/19 History [Vitamin B-12] folic acid 1 mg PO DAILY 03/11/19 03/11/19 History lidocaine HCl [Aspercreme 1 applic TOPICAL BID PRN 03/11/19 03/11/19 History (lidocaine)] loratadine 10 mg PO DAILY PRN 03/11/19 03/11/19 History metoprolol succinate [Toprol XL] 50 mg PO DAILY 03/11/19 03/11/19 History nystatin-triamcinolone 1 applic TOPICAL BID PRN 03/11/19 03/11/19 History ondansetron HCl 4 mg PO Q6H PRN 03/11/19 03/11/19 History polyethylene glycol 3350 [Miralax] 17 g PO DAILY PRN 03/11/19 03/11/19 History spironolactone [Aldactone] 25 mg PO DAILY 03/11/19 03/11/19 History warfarin 7.5 mg PO SUTUWETHSA 03/11/19 03/11/19 History cephalexin [Keflex] 500 mg PO TID 21 Days #63 cap 03/15/19 Rx Past Med/Surg History Medical History Anxiety (Chronic) Atrial flutter (Chronic) Chronic back pain (Chronic) Chronic diastolic CHF (congestive heart failure) Depression (Chronic) Diabetes mellitus, type II (Chronic) Fibromyalgia (Chronic) HLD (hyperlipidemia) (Chronic) HTN (hypertension) (Chronic) Morbid obesity Obesity (Chronic) TINO (obstructive sleep apnea) (Chronic) Paroxysmal atrial fibrillation (Chronic) Peripheral neuropathy (Chronic) Seizure DIFLUNISAL REACTION- 2008 PER [facility] Surgical History H/O cervical discectomy (Resolved) H/O umbilical hernia repair H/O ventral hernia repair History of cholecystectomy (Resolved) LAP Family History Mother Hypertension Social History Preferred Language: Iraqi Communication Ability: Effective Manager Engagement Required: No Beliefs That Will Affect Care: None marital status: Current Living Situation: Spouse Feels Safe at Home: Yes Smoking Status: Former smoker Tobacco Type: cigarettes and cigars ; Second Hand Exposure: No ; Hx Alcohol Use: No Hx Substance Use: No Review of Systems Review of Systems: ROS per HPI, all other systems reviewed and negative Physical Exam Constitutional: WD/WN, vitals as above + obese Eyes: PERRL, conjunctivae normal, anicteric sclerae ENMT: external ear and nose normal, oropharynx normal Respiratory: normal respiratory effort, lungs clear to auscultation Cardiovascular: Rate/Rhythm: + tachycardic (Heart rate low 100s) and + irregularly irregular Vessels: normal peripheral pulses Extremities: no edema Gastrointestinal (Abdomen): normal bowel sounds, soft, nontender, no hepatosplenomegaly Musculoskeletal: no cyanosis or clubbing, extremities motor strength 5/5 Skin: no rashes, warm and dry Generalized erythema and warmth noted to mid to lower half of abdominal wall, previously outlined area noted. Healed scar noted to right of umbilicus with an area of fluctuance and dried scabbing on the lower portion. Small dried scab noted within the umbilicus as well. No drai nage noted Neurologic: PERRL, EOMI, accommodation nl, no face palsy, no dysarthria Psychiatric: A+Ox3, euthymic affect Results & Data Vital Signs (Past 12 Hours) Vital Signs Temp Pulse Pulse Resp BP BP Pulse Ox 03/11/19 19:00 101 H 20 135/82 98 03/11/19 18:41 89 18 143/70 H 98 03/11/19 17:54 83 16 136/70 97 03/11/19 16:21 86 18 132/68 98 03/11/19 14:35 37.2 C 87 20 159/84 H 99 Laboratory Results Short CBC 03/11/19 Range/Units 16:37 WBC 14.88 H (4.8-10.8) K/uL Hgb 11.5 L (14.0-18.0) g/dL Hct 35.4 L (42-52) % Plt Count 299 (130-400) K/uL BMP 03/11/19 16:37 Sodium 134 L Potassium 3.8 Chloride 98 Carbon Dioxide 33 H BUN 12 Creatinine 1.04 Glucose 175 H Calcium 8.8 Liver Function 03/11/19 Range/Units 16:37 Total Bilirubin 1.0 (0.2-1) mg/dl AST 12 L (15-37) U/L ALT 21 (12-78) U/L Alkaline Phosphatase 66 (45-117) U/L Albumin 3.0 L (3.4-5.0) gm/dl Urine 03/11/19 Range/Units 16:21 Urine Color Dark Yellow Urine Appearance Clear (Clear) Urine pH 7.0 (4.5-7.5) Ur Specific [place] 1.022 (1.000-1.030) Urine Protein Trace H (Negative) Urine Glucose (UA) Negative (Negative) Diagnostic Findings CT ABD/PELVIS IMPRESSION: 1. Interval midline incision with evidence for soft tissue and air residual between the skin surface and anterior abdominal wall. 2. This measures 3.3 x 4.6 cm. 3. This soft tissue prominence presumably represents a postprocedural soft tissue abscess, phlegmon, versus dense cellulitis. 4. Diffuse anterior and lateral abdominal wall cellulitis-type change. Code Status & VTE Plan VTE Prophylaxis Plan VTE Prophylaxis will be ordered: No Supervising Physician Co-Signing Physician Notes Pt was seen and examined. 58-year-old male with PMH fibromyalgia, TINO, HTN, DM type 2, CHF, presents to the ED for evaluation of an abdominal wall infection. Pt said that he was scratched by his dog about 1 week ago around his abdominal. He said that the area became red and tender. He was given IM Rocephin and starting on oral Keflex. He said that he saw his PCP today and he noticed the abdominal wall pain, redness worsening and sent him to the hospital. CT abd/ pelvis showed soft tissue prominence presumably represents a postprocedural soft tissue abscess, phlegmon, versus dense cellulitis and diffuse anterior and lateral abdominal wall cellulitis-type change. WBC elevated at 14K. Received IV vanco and Zosyn in the ER. Will continue abx with vanco and zosyn. Blood cx collected in the ER pending. Will follow CBC. Will consult surgery for possible abscess. Continue monitor closely. MD Carlotta
[2019-03-11] MEDS ORDERED: INSULIN ASPART 100 UNITS/ML 3 ML PEN SC SCH (21:00)
[2019-03-11] MEDS ORDERED: DAPTOMYCIN CONSULT ACTIVE PRN (21:17)
[2019-03-11] MEDS: ATORVASTATIN 40 MG TAB PO SCH (21:26)
[2019-03-11] MEDS: GABAPENTIN 800 MG TAB PO SCH (22:38)
[2019-03-11] MEDS: buprenorphine HCL 2 MG SUBL SL SCH (22:38)
[2019-03-11] MEDS: ENALAPRIL MALEATE 10 MG TAB PO SCH (22:38)
[2019-03-11] MEDS: TORSEMIDE 10 MG TAB PO SCH (22:49)
[2019-03-11] MEDS: PRAMIPEXOLE DIHYDROCHLO 0.25 MG TAB PO SCH (22:49)
[2019-03-11] MEDS: PIPERACILLIN/TAZOBACTAM 4.5 GM in DEXTROSE 5% 100 ML IV SCH (23:54)
[2019-03-12] MEDS ORDERED: METOPROLOL TARTRATE 25 MG TAB PO STA ×2 (00:31→15:32)
[2019-03-12] MEDS ORDERED: Nursing to Pharmacy Communication ONE (05:41)
[2019-03-12] MEDS: INSULIN ASPART 100 UNITS/ML 3 ML PEN SC SCH ×3 (06:09→20:54)
[2019-03-12 07:48] LABS: Hemoglobin 11.5 g/dL (14.0-18.0); Mean Corpuscular Hgb Conc 32.9 g/dL (32-36); Mean Corpuscular Volume 88.2 fL (80-100); Mean Platelet Volume 10.3 fL (7.4-10.4); Platelet Count 330 K/uL (130-400); RDW Coefficient of Variation 14.9 % (11.5-14.5); RDW Standard Deviation 48.2 fL (36.4-46.3); Red Blood Count 3.97 M/uL (4.7-6.1); White Blood Count 14.66 K/uL (4.8-10.8)
[2019-03-12 07:56] LABS: Prothrombin Time 19.7 Seconds (9.0-12.0)
[2019-03-12] MEDS: PIPERACILLIN/TAZOBACTAM 4.5 GM in DEXTROSE 5% 100 ML IV SCH ×2 (07:57→17:35)
[2019-03-12 08:16] LABS: BUN Creatinine Ratio 9.7 (10-20); Calcium 8.7 mg/dl (8.5-10.1); Creatinine Clr Calc Pharmacy 107.8 ml/min; Est GFR (African American) 92.4; Est GFR (Non-African American) 79.7; Potassium 3.7 mmol/L (3.5-5.1)
[2019-03-12] MEDS: FOLIC ACID 1 MG TAB PO SCH (08:52)
[2019-03-12] MEDS: METOPROLOL SUCC 50MG EXT REL TAB PO SCH (08:52)
[2019-03-12] MEDS: SPIRONOLACTONE 25 MG TAB PO SCH (08:52)
[2019-03-12] MEDS: MULTIVITAMIN TAB PO SCH (08:53)
[2019-03-12] MEDS: buprenorphine HCL 2 MG SUBL SL SCH ×2 (08:53→21:44)
[2019-03-12] MEDS: CYANOCOBALAMIN 500 MCG TABLET (VITAMIN B-12) PO SCH (08:53)
[2019-03-12] MEDS: TORSEMIDE 10 MG TAB PO SCH ×2 (08:53→20:57)
[2019-03-12] MEDS: ENALAPRIL MALEATE 10 MG TAB PO SCH ×2 (08:53→20:59)
[2019-03-12] MEDS: GABAPENTIN 800 MG TAB PO SCH ×2 (08:53→20:58)
[2019-03-12] MEDS ORDERED: POTASSIUM CHLORIDE 20 MEQ TABCR PO SCH (09:00)
[2019-03-12] MEDS ORDERED: ALUMINUM/MAGNESIUM SUSP 30 ML UDC PO STA (09:56)
--- NOTE | 2019-03-12 10:03 | Hospitalist Progress Note ---
Date of Service March 12, 2019 Assessment & Plan (1) Abdominal wall abscess: (2) Abdominal wall cellulitis: -Patient presenting by referral to PCPs office for evaluation of failed outpatient treatment of abdominal cellulitis with abscess (had Received IM Rocephin on 03/09 and 03/10), ED presentation on 03/11/2019 with WBC 14.8K, CT ABD/pelvis suggesting 3.3 x 4.6 cm abscess along prior incision site from hernia repair 1 year ago, febrile, continued on Daptomycin and Zosyn in the ED -General surgery consult for possible I&D; Dr. Antoine notified by ED -03/12/2019 AM hospitalist assessment: Skin exam of diffuse abdominal erythema that is marked. above umbilicus but below the ring of erythema is a protruding bubble that looks like abscess. Abdomen is tender to palpation. Patient also expressed concerns of possible allergies or drug rash - Patient has area of circular erythema of right midthigh that patient reports is somewhat chronic and he did not allow nurse to lillie the area; medical doctor asked nurse to lillie the area of buttock erythema. There are no obvious areas of skin desquamation. Medical doctor also ordered wound care consult so photographs of erythema can be taken. Patient currently NPO and awaiting for general surgery evaluation of abdominal abscess. -Infectious Disease consult also requested (3) Paroxysmal atrial fibrillation: chronic use of coumadin anticoagulation -patient has atrial fibrillation on admission and was admitted to a medical surgical nathan -admission INR of 2.1 and coumadin held -continue current metoprolol -INR on 03/12/2019 is 2, continue to hold coumadin, appreciate on general surgical evaluation if any incission and drainage of abscess can be done based on INR targets -transfer to telemetry bed for closer monitoring and heart rate control (4) HTN (hypertension): -continue metoprolol (5) Diabetes mellitus, type II: -Hgb A1c 7.8 09/2018 -Hold oral agents and Victoza and utilize NovoLog per protocol hospitalized (6) Chronic back pain: -Currently managed on Subutex (7) HLD (hyperlipidemia): -Continue statin (8) Chronic diastolic CHF (congestive heart failure): -Continue torsemide and spironolactone (9) DVT prophylaxis: -INR is 2 from history of previous coumadin use, start SCDs Subjective Skin exam of diffuse abdominal erythema that is marked. above umbilicus but below the ring of erythema is a protruding bubble that looks like abscess. Abdomen is tender to palpation. Patient also expressed concerns of possible allergies or drug rash - Patient has area of circular erythema of right midthigh that patient reports is somewhat chronic and he did not allow nurse to lillie the area; medical doctor asked nurse to lillie the area of buttock erythema. There are no obvious areas of skin desquamation. Medical doctor also ordered wound care consult so photographs of erythema can be taken. Patient currently NPO and awaiting for general surgery evaluation of abdominal abscess currently afebrile. no vomiting. no chest pain. no shortness of breath. no palpations. no dizziness. no headache. Review of Systems Review of Systems: All systems reviewed & are unremarkable except as noted in HPI & below Physical Exam Constitutional: + obese Eyes: PERRL, conjunctivae normal, anicteric sclerae EOM intact bilaterally ENMT: external ear and nose normal, oropharynx normal Neck: normal visual inspection Respiratory: normal respiratory effort Cardiovascular: Rate/Rhythm: regular rhythm mildly tachycardic Musculoskeletal: Head/Neck/Chest: normocephalic and head atraumatic Neurologic: PERRL, EOMI, accommodation nl, no face palsy, no dysarthria CN's II-XI intact bilaterally Psychiatric: A+Ox3, euthymic affect Results & Data Vital Signs (Past 12 Hours) Vital Signs Temp Pulse Pulse Resp BP Pulse Ox 03/12/19 07:40 36.4 C L 109 H 20 162/89 H 97 03/12/19 04:01 79 03/11/19 23:45 91 H 118 H 139/88 03/11/19 23:25 37.1 C 118 H 18 153/75 H 95
--- NOTE | 2019-03-12 10:35 | Electrocardiogram Report ---
Test Reason : Blood Pressure : / mmHG Vent. Rate : 114 BPM Atrial Rate : 174 BPM P-R Int : 000 ms QRS Dur : 086 ms QT Int : 348 ms P-R-T Axes : 000 025 016 degrees QTc Int : 479 ms Atrial fibrillation with rapid ventricular response Abnormal ECG When compared with ECG of 08-OCT-2018 01:23, No significant change was found Confirmed by Andrea Banegas ([id number]) on 03/12/2019 10:35:23 AM Referred By: Joseph Goodman Confirmed By:Andrea Banegas
[2019-03-12] MEDS ORDERED: SODIUM CHLORIDE 0.9% 250 ML IV PRN (11:09)
--- NOTE | 2019-03-12 11:34 | Surgery Consultation ---
Date of Consultation March 12, 2019 Assessment & Plan (1) Abdominal wall cellulitis: pt is a 58 year-old male who was admitted to hospital for abdominal wall cellulitis with abscess IMP: abdominal wall cellulitis with abscess Plan, 2 units FFP, to correct INR, I recommend to do I/D abdominal wall abscess at $:30pm, D/W benefits, risks and alternatives of the surgery, the risks - infection, bleeding, blood clot, pt and his understood, they agree with the surgery, I answered all questions, I call Dr. Bateman about the plan, (2) Abdominal wall abscess: History of Present Illness Attending Physician: Uvaldo Bateman MD Chief Complaint: Abdominal wall infection Primary Care Provider: Joseph Goodman MD 58-year-old male who presents to the ED for evaluation of an abdominal wall infection. Patient reports that approximately 6 months ago, his dog stepped on his stomach causing an abrasion over the scar of a prior hernia repair. Patient reports the scab never healed and he continued to pick at it. About 1 week ago, patient noticed increasing redness and warmth to his abdominal wall. Patient was seen at his PCPs office on 03/09 and given a dose of IM Rocephin. He was seen again on 03/10 and previously outlined area had improved and he was given another dose of IM Rocephin and instructed to start p.o. Keflex today. Redness started to worsen again and he was seen again at his PCPs office today. He was then sent to the ED for further evaluation. Patient reports a small amount of drainage from the scabbed over area. He denies fevers and chills. No chest pain. Has chronic exertional shortness of breath which is unchanged from baseline. No lightheadedness, dizziness, diaphoresis, syncopal events. Denies abdominal pain, nausea, vomiting, diarrhea. No urinary symptoms. In the ED, WBC 14.8K, afebrile, hemodynamically stable, normal lactate. CT ABD/pelvis is suggesting a possible 3.3 x 4.6 cm abscess. Patient was given IV Dapto, IV Zosyn, IVF. I ( Nell Vance MD ) reviewed pt's H/P , labs, CT scan with pt and his , pt denies abdominal pain, no fever, no drainage from abdominal wall, but some redness at middle abdominal wall, Allergies Allergy/AdvReac Type Severity Reaction Status Date / Time diflunisal Allergy Unknown SEIZURE Verified 03/11/19 19:04 Home Medications Home Medications Medication Instructions Recorded Confirmed Type Victoza 2-Cody 1.8 mg SUBCUT QAM 11/14/17 03/11/19 History glipizide 20 mg PO BID 11/14/17 03/11/19 History multivitamin 1 tab PO DAILY 11/14/17 03/11/19 History pramipexole [Mirapex] 0.125 mg PO HS 11/14/17 03/11/19 History gabapentin 800 mg PO BID 01/02/18 03/11/19 History metformin 1,000 mg PO BID 01/02/18 03/11/19 History potassium chloride 20 meq PO DAILY 01/02/18 03/11/19 History atorvastatin 40 mg PO QPM 10/08/18 03/11/19 History enalapril maleate 10 mg PO HS 10/08/18 03/11/19 History enalapril maleate 20 mg PO QAM 10/08/18 03/11/19 History torsemide 10 mg PO BID 10/08/18 03/11/19 History warfarin 10 mg PO MOFR 10/08/18 03/11/19 History buprenorphine HCl 2 mg SUBLINGUAL BID PRN 03/11/19 03/11/19 History buprenorphine HCl 6 mg SUBLINGUAL BID 03/11/19 03/11/19 History cephalexin [Keflex] 500 mg PO QID 03/11/19 03/11/19 History clotrimazole 1 applic TOPICAL BID PRN 03/11/19 03/11/19 History cyanocobalamin (vitamin B-12) 1,000 mcg PO DAILY 03/11/19 03/11/19 History [Vitamin B-12] folic acid 1 mg PO DAILY 03/11/19 03/11/19 History lidocaine HCl [Aspercreme 1 applic TOPICAL BID PRN 03/11/19 03/11/19 History (lidocaine)] loratadine 10 mg PO DAILY PRN 03/11/19 03/11/19 History metoprolol succinate [Toprol XL] 50 mg PO DAILY 03/11/19 03/11/19 History naloxone [Narcan] 4 mg INTRANASAL UD PRN 03/11/19 03/11/19 History nystatin-triamcinolone 1 applic TOPICAL BID PRN 03/11/19 03/11/19 Histo ry ondansetron HCl 4 mg PO Q6H PRN 03/11/19 03/11/19 History polyethylene glycol 3350 [Miralax] 17 g PO DAILY PRN 03/11/19 03/11/19 History spironolactone [Aldactone] 25 mg PO DAILY 03/11/19 03/11/19 History warfarin 7.5 mg PO SUTUWETHSA 03/11/19 03/11/19 History Past Med/Surg History Medical History Anxiety (Chronic) Atrial flutter (Chronic) Chronic back pain (Chronic) Chronic diastolic CHF (congestive heart failure) Depression (Chronic) Diabetes mellitus, type II (Chronic) Fibromyalgia (Chronic) HLD (hyperlipidemia) (Chronic) HTN (hypertension) (Chronic) Morbid obesity Obesity (Chronic) TINO (obstructive sleep apnea) (Chronic) Paroxysmal atrial fibrillation (Chronic) Peripheral neuropathy (Chronic) Seizure DIFLUNISAL REACTION- 2007 PER [facility] RECORDS Surgical History H/O cervical discectomy (Resolved) H/O umbilical hernia repair H/O ventral hernia repair History of cholecystectomy (Resolved) LAP Family History Mother Hypertension Allergies Allergy/AdvReac Type Severity Reaction Status Date / Time diflunisal Allergy Unknown SEIZURE Verified 03/11/19 19:04 Home Medications Home Medications Medication Instructions Recorded Confirmed Type Victoza 2-Cody 1.8 mg SUBCUT QAM 11/14/17 03/11/19 History glipizide 20 mg PO BID 11/14/17 03/11/19 History multivitamin 1 tab PO DAILY 11/14/17 03/11/19 History pramipexole [Mirapex] 0.125 mg PO HS 11/14/17 03/11/19 History gabapentin 800 mg PO BID 01/02/18 03/11/19 History metformin 1,000 mg PO BID 01/02/18 03/11/19 History potassium chloride 20 meq PO DAILY 01/02/18 03/11/19 History atorvastatin 40 mg PO QPM 10/08/18 03/11/19 History enalapril maleate 10 mg PO HS 10/08/18 03/11/19 History enalapril maleate 20 mg PO QAM 10/08/18 03/11/19 History torsemide 10 mg PO BID 10/08/18 03/11/19 History warfarin 10 mg PO MOFR 10/08/18 03/11/19 History buprenorphine HCl 2 mg SUBLINGUAL BID PRN 03/11/19 03/11/19 History buprenorphine HCl 6 mg SUBLINGUAL BID 03/11/19 03/11/19 History cephalexin [Keflex] 500 mg PO QID 03/11/19 03/11/19 History clotrimazole 1 applic TOPICAL BID PRN 03/11/19 03/11/19 History cyanocobalamin (vitamin B-12) 1,000 mcg PO DAILY 03/11/19 03/11/19 History [Vitamin B-12] folic acid 1 mg PO DAILY 03/11/19 03/11/19 History lidocaine HCl [Aspercreme 1 applic TOPICAL BID PRN 03/11/19 03/11/19 History (lidocaine)] loratadine 10 mg PO DAILY PRN 03/11/19 03/11/19 History metoprolol succinate [Toprol XL] 50 mg PO DAILY 03/11/19 03/11/19 History naloxone [Narcan] 4 mg INTRANASAL UD PRN 03/11/19 03/11/19 History nystatin-triamcinolone 1 applic TOPICAL BID PRN 03/11/19 03/11/19 History ondansetron HCl 4 mg PO Q6H PRN 03/11/19 03/11/19 History polyethylene glycol 3350 [Miralax] 17 g PO DAILY PRN 03/11/19 03/11/19 History spironolactone [Aldactone] 25 mg PO DAILY 03/11/19 03/11/19 History warfarin 7.5 mg PO SUTUWETHSA 03/11/19 03/11/19 History Patient History Medical History Anxiety (Chronic) Atrial flutter (Chronic) Chronic back pain (Chronic) Chronic diastolic CHF (congestive heart failure) Depression (Chronic) Diabetes mellitus, type II (Chronic) Fibromyalgia (Chronic) HLD (hyperlipidemia) (Chronic) HTN (hypertension) (Chronic) Morbid obesity Obesity (Chronic) TINO (obstructive sleep apnea) (Chronic) Paroxysmal atrial fibrillation (Chronic) Peripheral neuropathy (Chronic) Seizure DIFLUNISAL REACTION- 2008 PER [facility] RECORDS Surgical History H/O cervical discectomy (Resolved) H/O umbilical hernia repair H/O ventral hernia repair History of cholecystectomy (Resolved) LAP Family History Mother Hypertension Social History Preferred Language: Panamanian Communication 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: 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 Beliefs That Will Affect Care: None marital status: Current Living Situation: Spouse Other Information That Helps Us Care for You: No Feels Safe at Home: Yes Safety Concerns: Feels Safe At This Time Smoking Status: Former smoker Tobacco Type: cigarettes and cigars ; Second Hand Exposure: No ; Hx Alcohol Use: No Hx Substance Use: No Review of Systems Review of Systems: All systems reviewed & are unremarkable except as noted in HPI & below Cardiovascular: Additional Comments: A-fib, HTN Endocrine: DM Physical Exam Constitutional: WD/WN, vitals as above well developed and well nourished ENMT: external ear and nose normal, oropharynx normal Neck: trachea midline, no thyromegaly Respiratory: normal respiratory effort, lungs clear to auscultation normal respiratory effort Cardiovascular: Heart Sounds: normal S1 and normal S2 A-fib Gastrointestinal (Abdomen): normal bowel sounds, soft, nontender, no hepatosplenomegaly some redness at middle abdomen, size about [id number], some fluid collect at middle line incision, size about 2x4cm, no tenderness at abdomen, no rebound pain, BS + Musculoskeletal: no cyanosis or clubbing, extremities motor strength 5/5 Skin: no rashes, warm and dry Neurologic: patellar DTR's 2+ bilat, sensation intact Psychiatric: A+Ox3, euthymic affect Orientation: alert and oriented x 3 Results & Data Vital Signs (Past 12 Hours) Vital Signs Temp Pulse Pulse Resp BP Pulse Ox 03/12/19 07:40 36.4 C L 109 H 20 162/89 H 97 03/12/19 04:01 79 03/11/19 23:45 91 H 118 H 139/88 Laboratory Results Abnormal lab results 03/11/19 03/11/19 03/11/19 Range/Units 16:21 16:37 16:37 WBC 14.88 H (4.8-10.8) K/uL RBC 4.03 L (4.7-6.1) M/uL Hgb 11.5 L (14.0-18.0) g/dL Hct 35.4 L (42-52) % RDW Std Deviation 48.6 H (36.4-46.3) fL RDW Coeff of Killian 15.0 H (11.5-14.5) % MPV 10.5 H (7.4-10.4) fL Immature Gran # (Auto) 0.05 H (0.00-0.02) K/uL Neut # (Auto) 11.33 H (1.4-6.5) K/uL [place] # (Auto) 1.32 H (0.11-0.59) K/uL PT (9.0-12.0) Seconds INR (0.9-1.1) APTT (21.0-31.0) Seconds Sodium 134 L (136-145) mmol/L Carbon Dioxide 33 H (21-32) mmol/L BUN/Creatinine Ratio (10-20) Glucose 175 H (70-99) mg/dl POC Glucose (70-99) mg/dl AST 12 L (15-37) U/L Total Protein 8.3 H (6.4-8.2) gm/dl Albumin 3.0 L (3.4-5.0) gm/dl Globulin 5.3 H (2.5-4.0) gm/dl Albumin/Globulin Ratio 0.6 L (0.9-2) Urine Protein Trace H (Negative) Ur Leukocyte Esterase Trace H (Negative) U Epithel Cells (Auto) 5-10 H (0-5) /lpf 03/11/19 03/11/19 03/12/19 Range/Units 16:37 20:40 05:45 WBC (4.8-10.8) K/uL RBC (4.7-6.1) M/uL Hgb (14.0-18.0) g/dL Hct (42-52) % RDW Std Deviation (36.4-46.3) fL RDW Coeff of Killian (11.5-14.5) % MPV (7.4-10.4) fL Immature Gran # (Auto) (0.00-0.02) K/uL Neut # (Auto) (1.4-6.5) K/uL [place] # (Auto) (0.11-0.59) K/uL PT 20.4 H (9.0-12.0) Seconds INR 2.1 H (0.9-1.1) APTT 46.3 H* (21.0-31.0) Seconds Sodium (136-145) mmol/L Carbon Dioxide (21-32) mmol/L BUN/Creatinine Ratio (10-20) Glucose (70-99) mg/dl POC Glucose 159 H 130 H (70-99) mg/dl AST (15-37) U/L Total Protein (6.4-8.2) gm/dl Albumin (3.4-5.0) gm/dl Globulin (2.5-4.0) gm/dl Albumin/Globulin Ratio (0.9-2) Urine Protein (Negative) Ur Leukocyte Esterase (Negative) U Epithel Cells (Auto) (0-5) /lpf 03/12/19 03/12/19 03/12/19 Range/Units 07:27 07:27 07:27 WBC 14.66 H (4.8-10.8) K/uL RBC 3.97 L (4.7-6.1) M/uL Hgb 11.5 L (14.0-18.0) g/dL Hct 35.0 L (42-52) % RDW Std Deviation 48.2 H (36.4-46.3) fL RDW Coeff of Killian 14.9 H (11.5-14.5) % MPV (7.4-10.4) fL Immature Gran # (Auto) (0.00-0.02) K/uL Neut # (Auto) (1.4-6.5) K/uL [place] # (Auto) (0.11-0.59) K/uL PT 19.7 H (9.0-12.0) Seconds INR 2.0 H (0.9-1.1) APTT (21.0-31.0) Seconds Sodium (136-145) mmol/L Carbon Dioxide (21-32) mmol/L BUN/Creatinine Ratio 9.7 L (10-20) Glucose 147 H (70-99) mg/dl POC Glucose (70-99) mg/dl AST (15-37) U/L Total Protein (6.4-8.2) gm/dl Albumin (3.4-5.0) gm/dl Globulin (2.5-4.0) gm/dl Albumin/Globulin Ratio (0.9-2) Urine Protein (Negative) Ur Leukocyte Esterase (Negative) U Epithel Cells (Auto) (0-5) /lpf Diagnostic Findings CT abd pelvis IV con only CT DOSE: 1316.93 mGycm HISTORY: Pain. Edema. surgical site cellulitis TECHNIQUE: Multiaxial CT images of the abdomen and pelvis were performed following the use of intravenous contrast. A dose lowering technique was utilized adhering to the principles of ALARA. COMPARISON STUDY: 05/25/2015 FINDINGS: Lung bases are clear. Fatty replacement of the liver. Prior cholecystectomy. Pancreas is unremarkable. The upper abdominal bowel pattern is nonobstructive. Interval midline incision. Evidence for anterior abdominal soft tissue cellulitis. At the incision site is a soft tissue prominence measuring 3.3 x 4.6 cm. This contains at least one small air component. The appearance suggests phlegmon versus a focal dense cellulitis versus abscess. Bladder is midline. No free fluid within the abdomen or pelvic region. Nonobstru ctive bowel pattern. IMPRESSION: 1. Interval midline incision with evidence for soft tissue and air residual between the skin surface and anterior abdominal wall. 2. This measures 3.3 x 4.6 cm. 3. This soft tissue prominence presumably represents a postprocedural soft tissue abscess, phlegmon, versus dense cellulitis. 4. Diffuse anterior and lateral abdominal wall cellulitis-type change. ACT 112: Negative or not required by law. The above report was generated using voice recognition software. It may contain grammatical, syntax or spelling errors.
--- NOTE | 2019-03-12 13:07 | Infectious Disease Consult ---
Date of Consultation March 12, 2019 Assessment & Plan (1) Abdominal wall abscess: continue abx, await OR findings, please send deep cultures. will follow. History of Present Illness Attending Physician: Uvaldo Bateman MD pt admitted with worsening abd infection. had hernia repeair one year ago was doing well until recently, had increased pain, erythema and abscess formation at distal incision. went to PCP IM CTX x 2 with no improvement, sent to ER, states purulent drainage at home. for OR later today. no f/c at home, afebrile since admission, placed on dapto and zosyn and is tolerating well. wbc 14, creat 1, UA negative, CT 3.3x4.6 cm abscess. increased erythema and tenderness. tolerating abx. no abd pain, no n/v/d. no cp, sob, cough, goyal. Allergies Allergy/AdvReac Type Severity Reaction Status Date / Time diflunisal Allergy Unknown SEIZURE Verified 03/11/19 19:04 Home Medications Home Medications Medication Instructions Recorded Confirmed Type Victoza 2-Cody 1.8 mg SUBCUT QAM 11/14/17 03/11/19 History glipizide 20 mg PO BID 11/14/17 03/11/19 History multivitamin 1 tab PO DAILY 11/14/17 03/11/19 History pramipexole [Mirapex] 0.125 mg PO HS 11/14/17 03/11/19 History gabapentin 800 mg PO BID 01/02/18 03/11/19 History metformin 1,000 mg PO BID 01/02/18 03/11/19 History potassium chloride 20 meq PO DAILY 01/02/18 03/11/19 History atorvastatin 40 mg PO QPM 10/08/18 03/11/19 History enalapril maleate 10 mg PO HS 10/08/18 03/11/19 History enalapril maleate 20 mg PO QAM 10/08/18 03/11/19 History torsemide 10 mg PO BID 10/08/18 03/11/19 History warfarin 10 mg PO MOFR 10/08/18 03/11/19 History buprenorphine HCl 2 mg SUBLINGUAL BID PRN 03/11/19 03/11/19 History buprenorphine HCl 6 mg SUBLINGUAL BID 03/11/19 03/11/19 History cephalexin [Keflex] 500 mg PO QID 03/11/19 03/11/19 History clotrimazole 1 applic TOPICAL BID PRN 03/11/19 03/11/19 History cyanocobalamin (vitamin B-12) 1,000 mcg PO DAILY 03/11/19 03/11/19 History [Vitamin B-12] folic acid 1 mg PO DAILY 03/11/19 03/11/19 History lidocaine HCl [Aspercreme 1 applic TOPICAL BID PRN 03/11/19 03/11/19 History (lidocaine)] loratadine 10 mg PO DAILY PRN 03/11/19 03/11/19 History metoprolol succinate [Toprol XL] 50 mg PO DAILY 03/11/19 03/11/19 History naloxone [Narcan] 4 mg INTRANASAL UD PRN 03/11/19 03/11/19 History nystatin-triamcinolone 1 applic TOPICAL BID PRN 03/11/19 03/11/19 History ondansetron HCl 4 mg PO Q6H PRN 03/11/19 03/11/19 History polyethylene glycol 3350 [Miralax] 17 g PO DAILY PRN 03/11/19 03/11/19 History spironolactone [Aldactone] 25 mg PO DAILY 03/11/19 03/11/19 History warfarin 7.5 mg PO SUTUWETHSA 03/11/19 03/11/19 History Patient History Medical History Anxiety (Chronic) Atrial flutter (Chronic) Chronic back pain (Chronic) Chronic diastolic CHF (congestive heart failure) Depression (Chronic) Diabetes mellitus, type II (Chronic) Fibromyalgia (Chronic) HLD (hyperlipidemia) (Chronic) HTN (hypertension) (Chronic) Morbid obesity Obesity (Chronic) TINO (obstructive sleep apnea) (Chronic) Paroxysmal atrial fibrillation (Chronic) Peripheral neuropathy (Chronic) Seizure DIFLUNISAL REACTION- 2007 PER [facility] RECORDS Surgical History H/O cervical discectomy (Resolved) H/O umbilical hernia repair H/O ventral hernia repair History of cholecystectomy (Resolved) LAP Family History Mother Hypertension Social History Preferred Language: Sami Communication Ability: 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 Beliefs That Will Affect Care: None marital status: Current Living Situation: Spouse Other Information That Helps Us Care for You: No Feels Safe at Home: Yes Safety Concerns: Feels Safe At This Time Smoking Status: Former smoker Tobacco Type: cigarettes and cigars ; Second Hand Exposure: No ; Hx Alcohol Use: No Hx Substance Use: No Review of Systems Review of Systems: All systems reviewed & are unremarkable except as noted in HPI & below Physical Exam Constitutional: WD/WN, vitals as above Eyes: PERRL, conjunctivae normal, anicteric sclerae ENMT: external ear and nose normal, oropharynx normal Neck: normal visual inspection Respiratory: normal respiratory effort, lungs clear to auscultation Cardiovascular: RRR, no murmur, no edema Gastrointestinal (Abdomen): normal bowel sounds, soft, nontender, no hepatosplenomegaly Musculoskeletal: no cyanosis or clubbing, extremities motor strength 5/5 Skin: no rashes, warm and dry + wound (abscess noted, no drainage but tender to light touch) and + incision erythema and warmth extending b/l flanks R>L Psychiatric: A+Ox3, euthymic affect Results & Data Vital Signs (Past 12 Hours) Vital Signs Temp Pulse Pulse Resp BP Pulse Ox 03/12/19 12:15 36.6 C 124 H 18 147/91 H 99 03/12/19 07:40 36.4 C L 109 H 20 162/89 H 97 03/12/19 04:01 79 PG Care Time/CCT Total # of Minutes Spent Total Time Spent with Patient: Total time spent is greater than 50% in coordination of care (as documented) at patient's floor/unit and/or counseling patient:
[2019-03-12] MEDS ORDERED: MIDAZOLAM HCL 1 MG/ML 2ML VIAL ONE (14:54)
[2019-03-12] MEDS ORDERED: ONDANSETRON INJ 2 MG/ML 2 ML VIAL ONE (14:54)
[2019-03-12] MEDS ORDERED: PROPOFOL IV EMULSION 10 MG/ML 20 ML VIAL IV ONE (14:54)
[2019-03-12] MEDS ORDERED: LIDOCAINE HCL 2% 2 ML VIAL/AMP(20MG/ML) INFIL ONE (14:54)
[2019-03-12] MEDS ORDERED: fentaNYL citrate 100 MCG/2 ML VIAL ONE ×2 (14:55→14:56)
[2019-03-12 15:09] LABS: INR 1.7 (0.9-1.1); Prothrombin Time 16.8 Seconds (9.0-12.0)
[2019-03-12] MEDS ORDERED: SUCCINYLCHOLINE CHLORIDE 20 MG/ML 10 ML VIAL ONE (15:18)
[2019-03-12] MEDS ORDERED: METOPROLOL TARTRATE 1 MG/ML VIAL IV STA (15:33)
[2019-03-12] MEDS ORDERED: METOPROLOL TARTRATE 1 MG/ML VIAL IV PRN (15:33)
[2019-03-12] MEDS ORDERED: HYDROmorphone INJ 1 MG/ML SYRINGE IV STA (15:34)
--- NOTE | 2019-03-12 16:36 | Anesthesiology Consultation ---
Date of Service March 12, 2019 Assessment & Plan (1) Encounter for pre-operative examination: Chart Review Chart Review: Acceptable Risk for Surgery (patient has elevated risk due to afib with RVR, but patient needs surgery) and Patient NOT seen in Pre Admission Testing Consults Requested none medicine is following the patient on telemetry History Surgery Operation Date: 03/12/19 07:00 Proposed Procedures p Incision and Drainage Abdominal Wall Abscess - Nell Vance MD Height/Weight Height: 5 ft 8 in Weight: 141.1 kg Allergies Allergy/AdvReac Type Severity Reaction Status Date / Time diflunisal Allergy Unknown SEIZURE Verified 03/11/19 19:04 rivaroxaban [From Xarelto] AdvReac Severe Rash Unverified 03/12/19 15:25 Medications Home Medications Medication Instructions Recorded Confirmed Last Taken Victoza 2-Cody 1.8 mg SUBCUT QAM 11/14/17 03/11/19 03/11/19 08:00 glipizide 20 mg PO BID 11/14/17 03/11/19 10/07/18 multivitamin 1 tab PO DAILY 11/14/17 03/11/19 10/07/18 pramipexole [Mirapex] 0.125 mg PO HS 11/14/17 03/11/19 10/07/18 gabapentin 800 mg PO BID 01/02/18 03/11/19 03/11/19 08:00 metformin 1,000 mg PO BID 01/02/18 03/11/19 10/07/18 potassium chloride 20 meq PO DAILY 01/02/18 03/11/19 10/07/18 atorvastatin 40 mg PO QPM 10/08/18 03/11/19 10/07/18 enalapril maleate 10 mg PO HS 10/08/18 03/11/19 10/07/18 enalapril maleate 20 mg PO QAM 10/08/18 03/11/19 10/07/18 torsemide 10 mg PO BID 10/08/18 03/11/19 03/11/19 08:00 warfarin 10 mg PO MOFR 10/08/18 03/11/19 10/05/18 buprenorphine HCl 2 mg SUBLINGUAL BID PRN 03/11/19 03/11/19 Unknown buprenorphine HCl 6 mg SUBLINGUAL BID 03/11/19 03/11/19 03/11/19 06:00 cephalexin [Keflex] 500 mg PO QID 03/11/19 03/11/19 03/11/19 12:00 clotrimazole 1 applic TOPICAL BID PRN 03/11/19 03/11/19 Unknown cyanocobalamin (vitamin B-12) 1,000 mcg PO DAILY 03/11/19 03/11/19 Unknown [Vitamin B-12] folic acid 1 mg PO DAILY 03/11/19 03/11/19 Unknown lidocaine HCl [Aspercreme 1 applic TOPICAL BID PRN 03/11/19 03/11/19 Unknown (lidocaine)] loratadine 10 mg PO DAILY PRN 03/11/19 03/11/19 Unknown metoprolol succinate [Toprol XL] 50 mg PO DAILY 03/11/19 03/11/19 03/11/19 08:00 naloxone [Narcan] 4 mg INTRANASAL UD PRN 03/11/19 03/11/19 Unknown nystatin-triamcinolone 1 applic TOPICAL BID PRN 03/11/19 03/11/19 Unknown ondansetron HCl 4 mg PO Q6H PRN 03/11/19 03/11/19 Unknown polyethylene glycol 3350 [Miralax] 17 g PO DAILY PRN 03/11/19 03/11/19 Unknown spironolactone [Aldactone] 25 mg PO DAILY 03/11/19 03/11/19 Unknown warfarin 7.5 mg PO SUTUWETHSA 03/11/19 03/11/19 Unknown Active Medications Generic Name Dose Route Start Last Admin Trade Name Freq PRN Reason Stop Dose Admin Atorvastatin Calcium 40 mg 03/11/19 21:00 03/11/19 21:26 Lipitor PO 04/10/19 20:59 Not Given QPM HUNTER Buprenorphine HCl 6 mg 03/11/19 21:00 03/12/19 08:53 Subutex SL 04/10/19 20:59 6 mg BID HUNTER Administration Cyanocobalamin 1,000 mcg 03/12/19 09:00 03/12/19 08:53 Vitamin B-12 PO 04/11/19 08:59 1,000 mcg DAILY HUNTER Administration Enalapril Maleate 20 mg 03/12/19 09:00 03/12/19 08:53 Vasotec PO 04/11/19 08:59 20 mg QAM HUNTER Administration Enalapril Maleate 10 mg 03/11/19 21:00 03/11/19 22:38 Vasotec PO 04/10/19 20:59 10 mg HS HUNTER Administration Folic Acid 1 mg 03/12/19 09:00 03/12/19 08:52 Folvite PO 04/11/19 08:59 1 mg DAILY HUNTER Administration Gabapentin 800 mg 03/11/19 21:00 03/12/19 08:53 Neurontin PO 04/10/19 20:59 800 mg BID HUNTER Administration Piperacillin Sod/Tazobactam 120 mls @ 30 mls/hr 03/12/19 00:00 03/12/19 11:56 Sod 4.5 gm/ Dextrose IV 03/22/19 00:00 Infused Q8H HUNTER Infusion Protocol Insulin Aspart 0 units 03/12/19 06:00 03/12/19 13:27 Novolog Flexpen SC 04/11/19 05:59 2 units Q6 HUTNER Administration Metoprolol Succinate 50 mg 03/12/19 09:00 03/12/19 08:52 Toprol Xl PO 04/11/19 08:59 50 mg DAILY HUNTER Administration Multivitamins 1 tab 03/12/19 09:00 03/12/19 08:53 Multivitamin Tab PO 04/11/19 08:59 1 tab DAILY HUNTER Administration Potassium Chloride 20 meq 03/12/19 09:00 03/12/19 08:52 Klor-Con M20 PO 04/11/19 08:59 20 meq DAILY HUNTER Administration Pramipexole Dihydrochloride 0.125 mg 03/11/19 21:00 03/11/19 22:49 Mirapex PO 04/10/19 20:59 0.125 mg HS HUNTER Administration Spironolactone 25 mg 03/12/19 09:00 03/12/19 08:52 Aldactone PO 04/11/19 08:59 25 mg DAILY HUNTER Administration Torsemide 10 mg 03/12/19 09:00 03/12/19 08:53 Demadex PO 04/11/19 08:59 10 mg BID HUNTER Administration NPO Date Last Intake of Fluids: 03/12/19 Time Last Intake of Fluids: 10:00 Date Last Intake of Solids: 03/11/19 Time Last Intake of Solids: 11:59 Past Medical History Medical History Anxiety (Chronic) Atrial flutter (Chronic) Chronic back pain (Chronic) Chronic diastolic CHF (congestive heart failure) Depression (Chronic) Diabetes mellitus, type II (Chronic) Fibromyalgia (Chronic) HLD (hyperlipidemia) (Chronic) HTN (hypertension) (Chronic) Morbid obesity Obesity (Chronic) TINO (obstructive sleep apnea) (Chronic) Paroxysmal atrial fibrillation (Chronic) Peripheral neuropathy (Chronic) Seizure DIFLUNISAL REACTION- 2008 PER [facility] RECORDS Past Family History Family History Mother Hypertension Past Surgical History Surgical History H/O cervical discectomy (Resolved) H/O umbilical hernia repair H/O ventral hernia repair History of cholecystectomy (Resolved) LAP Social History Smoking Status: Former smoker tobacco type: cigarettes and cigars Hx Alcohol Use: No Hx Substance Use: No substance use type: does not use Physical Exam Vital Signs Last Vital Signs Temp 37.0 C 03/12/19 15:41 Pulse 113 H 03/12/19 15:53 Resp 20 03/12/19 15:41 BP 136/85 03/12/19 15:53 Pulse Ox 95 03/12/19 15:41 Testing Laboratory Results 03/12/19 07:27 03/12/19 07:27 PT 16.8 Seconds (9.0-12.0) H 03/12/19 14:46 INR 1.7 (0.9-1.1) H 03/12/19 14:46 APTT 46.3 Seconds (21.0-31.0) H* 03/11/19 16:37 Urine Color Dark Yellow 03/11/19 16:21 Urine Appearance Clear (Clear) 03/11/19 16:21 Urine pH 7.0 (4.5-7.5) 03/11/19 16:21 Ur Specific [place] 1.022 (1.000-1.030) 03/11/19 16:21 Urine Protein Trace (Negative) H 03/11/19 16:21 Urine Glucose (UA) Negative (Negative) 03/11/19 16:21 Urine Ketones Negative (Negative) 03/11/19 16:21 Urine Nitrite Negative (Negative) 03/11/19 16:21 Ur Leukocyte Esterase Trace (Negative) H 03/11/19 16:21 Urine WBC (Auto) 1-5 /hpf (0-5) 03/11/19 16:21 Urine RBC (Auto) 0-4 /hpf (0-4) 03/11/19 16:21 U Hyaline Cast (Auto) 1-5 /lpf (0-5) 03/11/19 16:21 U Epithel Cells (Auto) 5-10 /lpf (0-5) H 03/11/19 16:21 Urine Bacteria (Auto) Negative (Negative) 03/11/19 16:21 Blood Type O Positive 03/12/19 07:27 03/12/19 03/12/19 12:27 05:45 POC Glucose 197 H 130 H Electrocardiogram Date: 03/11/19 Findings: + AFIB @ (113) Other Testing CT abd pelvis IV con only CT DOSE: 1316.93 mGycm HISTORY: Pain. Edema. surgical site cellulitis TECHNIQUE: Multiaxial CT images of the abdomen and pelvis were performed following the use of intravenous contrast. A dose lowering technique was utilized adhering to the principles of ALARA. COMPARISON STUDY: 05/25/2015 FINDINGS: Lung bases are clear. Fatty replacement of the liver. Prior cholecy stectomy. Pancreas is unremarkable. The upper abdominal bowel pattern is nonobstructive. Interval midline incision. Evidence for anterior abdominal soft tissue cellulitis. At the incision site is a soft tissue prominence measuring 3.3 x 4.6 cm. This contains at least one small air component. The appearance suggests phlegmon versus a focal dense cellulitis versus abscess. Bladder is midline. No free fluid within the abdomen or pelvic region. Nonobstructive bowel pattern. IMPRESSION: 1. Interval midline incision with evidence for soft tissue and air residual between the skin surface and anterior abdominal wall. 2. This measures 3.3 x 4.6 cm. 3. This soft tissue prominence presumably represents a postprocedural soft tissue abscess, phlegmon, versus dense cellulitis. 4. Diffuse anterior and lateral abdominal wall cellulitis-type change. ACT 112: Negative or not required by law. The above report was generated using voice recognition software. It may contain grammatical, syntax or spelling errors. Electronically signed by: Gerson Browne M.D. 03/11/2019 6:27 PM Dictated: 03/11/19 182 Transcribed: 03/11/19 182
[2019-03-12] MEDS ORDERED: CEFAZOLIN 2000MG 2,000 MG/15 ML SYR IV ONE (17:00)
--- NOTE | 2019-03-12 17:00 | History & Physical Bridge Note ---
Date of Service March 12, 2019 History & Physical Bridge Note I have examined the patient, reviewed the History & Physical and in the interval since the performance of the History & Physical I have noted the following changes of clinical significance: no changes noted
[2019-03-12] MEDS ORDERED: CEFAZOLIN 2,000 MG/15 ML IV PUSH IV ONE (17:03)
[2019-03-12 17:04] LABS: INR 1.7 (0.9-1.1); Prothrombin Time 17.1 Seconds (9.0-12.0)
[2019-03-12] MEDS ORDERED: fentaNYL citrate 100 MCG/2 ML VIAL IV PRN (17:12)
[2019-03-12] MEDS ORDERED: PHENYLEPHRINE 100MCG/ML 5ML SYR IV PRN (17:12)
[2019-03-12] MEDS ORDERED: HYDROmorphone INJ 1 MG/ML SYRINGE IV PRN ×2 (17:12→19:05)
[2019-03-12] MEDS ORDERED: ONDANSETRON INJ 2 MG/ML 2 ML VIAL IV PRN ×2 (17:12→19:38)
[2019-03-12] MEDS ORDERED: ATROPINE SULFATE 0.1 MG/ML 10ML SYR IV PRN (17:12)
[2019-03-12] MEDS ORDERED: LABETALOL HCL IV 5 MG/ML 20ML IV PRN (17:12)
[2019-03-12] MEDS ORDERED: ePHEDrine sulfate 50 MG/ML AMP IV PRN (17:12)
[2019-03-12] MEDS ORDERED: LIDOCAINE HCL 1% 20 ML VIAL ONE (17:26)
[2019-03-12] MEDS ORDERED: BUPIVACAINE 0.5 % 5 MG/1 ML MPF 30ML VIAL ONE (17:26)
[2019-03-12] MEDS ORDERED: METOPROLOL TARTRATE 1 MG/ML VIAL IV ONE ×2 (17:30→17:31)
[2019-03-12] MEDS ORDERED: PHENYLEPHRINE HCL 10 MG/ML VIAL ONE (17:34)
[2019-03-12] MEDS ORDERED: CEFAZOLIN 250 MG/ML 1 GM VIAL ONE (17:34)
[2019-03-12] MEDS ORDERED: BACITRACIN OINT 15 GM TUBE ONE (17:35)
--- NOTE | 2019-03-12 17:49 | Post Operative Brief Note ---
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
[2019-03-12] MEDS ORDERED: CEFAZOLIN 1000MG 1,000 MG/7.5 ML SYR IV ONE (18:04)
--- NOTE | 2019-03-12 18:22 | Anesthesiology Progress Note ---
Date of Service March 12, 2019 Anesthesia Post Procedure Vital Signs Vital Signs: Temp Pulse Pulse Pulse Pulse Resp BP 03/12/19 18:15 113 H 16 03/12/19 18:05 113 H 17 03/12/19 17:55 36.5 C 106 H 16 03/12/19 17:04 37.4 C 119 H 20 03/12/19 15:53 113 H 136/85 03/12/19 15:41 37.0 C 120 H 20 136/85 03/12/19 15:37 37.0 C 120 H 20 136/85 03/12/19 14:53 36.6 C 122 H 137/86 03/12/19 14:10 37.0 C 109 H 18 134/90 03/12/19 13:53 37.1 C 103 H 18 143/89 H 03/12/19 12:15 36.6 C 124 H 18 03/12/19 07:40 36.4 C L 109 H 20 03/12/19 04:01 79 03/11/19 23:45 91 H 118 H 03/11/19 23:25 37.1 C 118 H 18 03/11/19 20:41 36.9 C 108 H 20 03/11/19 20:29 115 H 20 142/93 H 03/11/19 19:00 101 H 20 03/11/19 18:41 89 18 BP Pulse Ox 03/12/19 18:15 101/81 96 03/12/19 18:05 113/80 93 03/12/19 17:55 118/68 92 03/12/19 17:04 157/99 H 94 03/12/19 15:53 03/12/19 15:41 95 03/12/19 15:37 97 03/12/19 14:53 96 03/12/19 14:10 96 03/12/19 13:53 96 03/12/19 12:15 147/91 H 99 03/12/19 07:40 162/89 H 97 03/12/19 04:01 03/11/19 23:45 139/88 03/11/19 23:25 153/75 H 95 03/11/19 20:41 142/83 H 99 03/11/19 20:29 98 03/11/19 19:00 135/82 98 03/11/19 18:41 143/70 H 98 Pain Intensity Abdomen: Pain Intensity: 3 Transfer of Care Handoff Completed per policy Notes Mental Status: alert / awake / arousable Patient Amnestic to Procedure: Yes Nausea / Vomiting: adequately controlled Pain: adequately controlled Airway Patency, RR, SpO2: stable & adequate BP & HR: stable & adequate Hydration State: stable & adequate Anesthetic Complications: no major complications apparent and Pt Satisfied with anesthetic care Notes: The patient is awake and comfortable. His HR is in the low 100s which is an improvement from his preoperative HR. His other vitals are stable.
[2019-03-12] MEDS ORDERED: LIDOCAINE TOP PRN (19:05)
[2019-03-12] MEDS ORDERED: CLOTRIMAZOLE 1% CR 15 GM TUBE TOP PRN (19:05)
[2019-03-12] MEDS ORDERED: NYSTATIN/TRIAMCIN CR 15 GM TUBE EXT PRN (19:05)
[2019-03-12] MEDS ORDERED: VANCOMYCIN CONSULT ACTIVE PRN (19:05)
[2019-03-12] MEDS ORDERED: LORATADINE 10 MG TAB PO PRN (19:05)
[2019-03-12] MEDS ORDERED: VANCOMYCIN HCL 1,000 MG in SODIUM CHLORIDE 0.9% 250 ML IV SCH (19:05)
[2019-03-12] MEDS ORDERED: ONDANSETRON 4 MG TAB PO PRN (19:05)
[2019-03-12] MEDS ORDERED: NALOXONE 4 MG INTNAS PRN (19:05)
[2019-03-12] MEDS: DAPTOmycin 400 MG in SYRINGE 0 ML IV SCH (19:25)
[2019-03-12] MEDS: ATORVASTATIN 40 MG TAB PO SCH (20:57)
[2019-03-12] MEDS: PRAMIPEXOLE DIHYDROCHLO 0.25 MG TAB PO SCH (20:58)
[2019-03-12] MEDS ORDERED: METFORMIN HCL 500 MG TAB PO SCH (21:00)
[2019-03-12] MEDS ORDERED: cephALEXin 500 MG CAP PO SCH (21:00)
[2019-03-13] MEDS: PIPERACILLIN/TAZOBACTAM 4.5 GM in DEXTROSE 5% 100 ML IV SCH ×3 (00:02→16:45)
[2019-03-13] MEDS: INSULIN ASPART 100 UNITS/ML 3 ML PEN SC SCH ×5 (00:06→20:50)
--- NOTE | 2019-03-13 05:34 | Operative Report ---
DATE OF OPERATION: 03/12/2019 PREOPERATIVE DIAGNOSIS: Abdominal wall abscess with cellulitis. POSTOPERATIVE DIAGNOSIS: Abdominal wall abscess with cellulitis. OPERATION: I and D of abdominal wall abscess. SURGEON: Nell Vance MD ANESTHESIA: General. ESTIMATED BLOOD LOSS: About 5 mL. FINDINGS: Abdominal wall abscess deep to the fascial layer. COMPLICATIONS: None. INDICATIONS FOR THE PROCEDURE: This is a 58-year-old gentleman who presented to the ED with 1-week history of abdominal wall redness, cellulitis, and patient had a CT scan diagnosis of abdominal wall abscess with cellulitis. Recommended to do the I and D of abdominal wall abscess. I did talk to the patient about the benefits, the risks, and alternate procedure. I indicated the risks may include but not limited such as bleeding, infection, may need more procedures, blood clot. The patient and patient's understand. They agreed to proceed with procedure. The patient signed informed consent and I answered all questions. DETAILS OF PROCEDURE: Before we took the patient to the OR, based on patient has Coumadin, the patient's INR is around 2. We gave the patient a couple of units of FFP and rechecked, the INR was 1.7, so we took the patient to the OR. After we rechecked the INR, we put the patient on the supine position. The patient received SCDs on bilateral legs to prevent DVT. Also the patient received 2 grams Ancef IV for prophylactic antibiotic. The patient received general anesthesia without difficulty. The abdomen was prepped and draped in routine sterile fashion. After time-out, I reexamined the patient. The patient shows redness of the abdominal wall with abscess, around 3 x 4 cm in the midline incision. The patient had an abdominal wall hernia repair with mesh about 1.5 years ago. Then we injected the local anesthesia by using 1% lidocaine mixed with 0.5% Marcaine around the abscess. Then we made the incision. The pus immediately came out. We sent to wound culture. Once we cleaned and all the pus came out, we used saline to clean and flush the wound and the wound was deep to fascial layer and I could not feel any of the mesh and below the wound. At this moment, we used bacitracin with 1-inch Kerlix for packing the wound. Hemostasis was obtained. Then we put the dressing on. The patient tolerated the procedure well. All instrument, needle, and sponge counts were correct x2 at the end of the case. The patient was transferred to recovery room in stable condition. After procedure, I did talk to the patient and family member about the OR finding and procedure we did, they understand. I attest to the content of the Intraoperative Record and any orders documented therein. Any exception s are noted below.
[2019-03-13] MEDS: OXYCODONE/ACETAMINOPHEN 5mg/325mg TAB PO PRN (06:10)
[2019-03-13 06:40] LABS: Basophils # (auto) 0.03 K/uL (0-0.2); Basophils % (auto) 0.2 %; Eosinophils % (auto) 4.8 %; Hematocrit (blood only) 34.9 % (42-52); Hemoglobin 11.1 g/dL (14.0-18.0); Immature Granulocytes # (auto) 0.04 K/uL (0.00-0.02); Immature Granulocytes % (auto) 0.3 %; Lymphocytes # (auto) 2.01 K/uL (1.2-3.4); Lymphocytes % (auto) 16.1 %; Mean Corpuscular Hemoglobin 28.6 pg (25-34); Mean Corpuscular Hgb Conc 31.8 g/dL (32-36); Mean Corpuscular Volume 89.9 fL (80-100); Mean Platelet Volume 10.3 fL (7.4-10.4); Monocytes # (auto) 1.05 K/uL (0.11-0.59); Monocytes % (auto) 8.4 %; Neutrophils # (auto) 8.77 K/uL (1.4-6.5); Neutrophils % (auto) 70.2 %; Platelet Count 354 K/uL (130-400); RDW Coefficient of Variation 15.2 % (11.5-14.5); Red Blood Count 3.88 M/uL (4.7-6.1)
[2019-03-13 06:52] LABS: INR 1.6 (0.9-1.1); Prothrombin Time 16.2 Seconds (9.0-12.0)
[2019-03-13 07:12] LABS: Albumin Level 2.9 gm/dl (3.4-5.0); BUN Creatinine Ratio 9.7 (10-20); Creatinine Clr Calc Pharmacy 87.2 ml/min; Est GFR (African American) 71.7; Est GFR (Non-African American) 61.9; Potassium 3.8 mmol/L (3.5-5.1)
[2019-03-13 07:15] LABS: Albumin Globulin Ratio 0.6 (0.9-2); Bilirubin,Total 0.8 mg/dl (0.2-1); Globulin 4.8 gm/dl (2.5-4.0); Total Protein 7.7 gm/dl (6.4-8.2)
[2019-03-13] MEDS ORDERED: glipiZIDE 5 MG TAB PO SCH (07:30)
--- NOTE | 2019-03-13 07:55 | Anesthesiology Progress Note ---
Date of Service March 13, 2019 Anesthesia Post Procedure Vital Signs Vital Signs: Temp Pulse Pulse Pulse Resp BP BP 03/13/19 04:00 36.8 C 75 20 112/55 L 03/13/19 01:26 95 H 03/12/19 23:55 36.8 C 97 H 20 105/64 03/12/19 22:49 36.6 C 95 H 20 96/60 L 03/12/19 22:06 36.8 C 105 H 20 114/67 03/12/19 21:07 36.5 C 104 H 18 119/79 03/12/19 19:35 36.3 C L 100 H 18 110/73 03/12/19 19:07 36.8 C 97 H 16 109/72 03/12/19 19:00 36.8 C 97 H 16 109/72 03/12/19 18:47 36.9 C 100 H 20 120/81 03/12/19 18:25 36.9 C 103 H 18 108/60 03/12/19 18:15 113 H 16 101/81 03/12/19 18:05 113 H 17 113/80 03/12/19 17:55 36.5 C 106 H 16 118/68 03/12/19 17:04 37.4 C 119 H 20 157/99 H 03/12/19 16:40 37.0 C 114 H 18 143/83 H 03/12/19 16:10 37.0 C 99 H 18 131/83 03/12/19 15:55 37.0 C 107 H 18 136/86 03/12/19 15:53 113 H 136/85 03/12/19 15:41 37.0 C 120 H 20 136/85 03/12/19 15:37 37.0 C 120 H 20 136/85 03/12/19 14:53 36.6 C 122 H 137/86 03/12/19 14:10 37.0 C 109 H 18 134/90 03/12/19 13:53 37.1 C 103 H 18 143/89 H 03/12/19 12:15 36.6 C 124 H 18 147/91 H Pulse Ox 03/13/19 04:00 96 03/13/19 01:26 03/12/19 23:55 93 03/12/19 22:49 95 03/12/19 22:06 94 03/12/19 21:07 93 03/12/19 19:35 93 03/12/19 19:07 93 03/12/19 19:00 93 03/12/19 18:47 94 03/12/19 18:25 94 03/12/19 18:15 96 03/12/19 18:05 93 03/12/19 17:55 92 03/12/19 17:04 94 03/12/19 16:40 97 03/12/19 16:10 96 03/12/19 15:55 03/12/19 15:53 03/12/19 15:41 95 03/12/19 15:37 97 03/12/19 14:53 96 03/12/19 14:10 96 03/12/19 13:53 96 03/12/19 12:15 99 Pain Intensity Abdomen: Pain Intensity: 0 Notes Mental Status: alert / awake / arousable and participated in evaluation Patient Amnestic to Procedure: Yes Nausea / Vomiting: adequately controlled Pain: adequately controlled Airway Patency, RR, SpO2: stable & adequate BP & HR: stable & adequate Hydration State: stable & adequate Anesthetic Complications: no major complications apparent
[2019-03-13] MEDS ORDERED: ENOXAPARIN INJ 40 MG/0.4 ML SYR SQ SCH (09:00)
[2019-03-13] MEDS ORDERED: NON-FORMULARY MEDICATION (Liraglutide [Victoza 2-Pak] 1.8 MG) SQ SCH (09:00)
[2019-03-13] MEDS: CYANOCOBALAMIN 500 MCG TABLET (VITAMIN B-12) PO SCH (09:24)
[2019-03-13] MEDS: FOLIC ACID 1 MG TAB PO SCH (09:24)
[2019-03-13] MEDS: METOPROLOL SUCC 50MG EXT REL TAB PO SCH (09:24)
[2019-03-13] MEDS: ENALAPRIL MALEATE 10 MG TAB PO SCH ×2 (09:25→20:49)
[2019-03-13] MEDS: SPIRONOLACTONE 25 MG TAB PO SCH (09:25)
[2019-03-13] MEDS: GABAPENTIN 800 MG TAB PO SCH ×2 (09:26→20:49)
[2019-03-13] MEDS: TORSEMIDE 10 MG TAB PO SCH ×3 (09:26→20:48)
[2019-03-13] MEDS: MULTIVITAMIN TAB PO SCH (09:26)
[2019-03-13] MEDS: buprenorphine HCL 2 MG SUBL SL SCH ×2 (09:45→22:11)
--- NOTE | 2019-03-13 10:42 | Infectious Disease Progress Nt ---
Date of Service March 13, 2019 Assessment & Plan (1) Abdominal wall abscess: continue abx, await OR cultures, hopefully can change to po. will follow. Subjective pt seen in f/u s/p I&D abd wall/incisional abscess. OR cultures pending, blood cultures negative to date. afebrile. wbc improved to 12 today. remain on zosyn and dapto, tolerating well. denies f/c. no cp, sob, cough, no abd pain, no n/v/d Review of Systems Review of Systems: All systems reviewed & are unremarkable except as noted in HPI & below Physical Exam Constitutional: WD/WN, vitals as above Eyes: PERRL, conjunctivae normal, anicteric sclerae ENMT: external ear and nose normal, oropharynx normal Neck: normal visual inspection Respiratory: normal respiratory effort, lungs clear to auscultation Cardiovascular: RRR, no murmur, no edema Gastrointestinal (Abdomen): normal bowel sounds, soft, nontender, no hepatosplenomegaly Musculoskeletal: no cyanosis or clubbing, extremities motor strength 5/5 Skin: no rashes, warm and dry + wound (abscess noted, no drainage but tender to light touch) and + incision Psychiatric: A+Ox3, euthymic affect Results & Data Vital Signs (Past 12 Hours) Vital Signs Temp Pulse Pulse Pulse Resp BP Pulse Ox 03/13/19 07:59 36.6 C 81 16 145/79 H 96 03/13/19 04:00 36.8 C 75 20 112/55 L 96 03/13/19 01:26 95 H 03/12/19 23:55 36.8 C 97 H 20 105/64 93 03/12/19 22:49 36.6 C 95 H 20 96/60 L 95 Laboratory Results Microbiology 03/12/19 17:35 Abdomen Gram Stain - Final 03/11/19 16:39 Blood Aerobic Blood Culture - Preliminary No growth in Aerobic bottle after 24 hours. 03/11/19 16:39 Blood Anaerobic Blood Culture - Final 03/11/19 16:37 Blood Aerobic Blood Culture - Preliminary No growth in Aerobic bottle after 24 hours. 03/11/19 16:37 Blood Anaerobic Blood Culture - Preliminary No growth in Anaerobic bottle after 24 hours. PG Care Time/CCT Total # of Minutes Spent Total Time Spent with Patient: Total time spent is greater than 50% in coordinat ion of care (as documented) at patient's floor/unit and/or counseling patient:
--- NOTE | 2019-03-13 10:52 | Hospitalist Progress Note ---
Date of Service March 13, 2019 Assessment & Plan (1) Abdominal wall cellulitis: s/p I&D of central abscess in OR yesterday evening. Doing well post-op. Expect lateral spreading cellulitis to the right of wound to improve with continued IV antibiotics. Awaiting wound culture to help narrow abx spectrum. (2) Abdominal wall abscess: plan as above. (3) HTN (hypertension): low BP post-operatively, but now improved. Cont enalapril and toprol XL and torsemide. (4) Diabetes mellitus, type II: Holding home victoza. Around inpatient goal on Novolog with correction factor and carb coverage. Cont current plan. A1C in am. (5) Chronic back pain: Cont chronic home pain medications and PRN narcotics for post-op pain control. (6) Paroxysmal atrial fibrillation: Cont coumadin and Toprol for rate control. (7) Obesity: (8) TINO (obstructive sleep apnea): declines hospital CPAP. (9) DVT prophylaxis: coumadin Full Code Dispo-to home when medically stable. Natividad Duckworth DO [facility] Hospitalist Subjective 58 yo M with abdominal abscess s/p I&D yesterday in the OR. Feels better today. Pain controlled with medications. Tolerating PO. Tele review afib til 1:23am, then sinus rhythm until switched to aflutter since 8:11a with rate in the 80s. Review of Systems Review of Systems: All systems reviewed & are unremarkable except as noted in HPI & below Physical Exam Physical Exam: CONSTITUTIONAL: obese, vitals as above, generally well- appearing EYES: normal conjunctivae, no scleral icterus ENT: MMM RESPIRATORY: clear to auscultation bilaterally, no crackles, rales or wheezes, normal respiratory effort CARDIOVASCULAR: regular rate and rhythm, S1 and 2 heard without murmurs, gallops or rubs, no JVD, no peripheral edema GASTROINTESTINAL: soft, protuberant, central wound covered with bandage that is c/d/i. Some lateral erythema spread out to the right beyond the bandage to the mid-clavicular line. Mild TTP. Large pannus. MUSCULOSKELETAL: strength 5/5 throughout, head is normocephalic and atraumatic SKIN: warm and dry, wound and erythema as above. NEUROLOGIC: No facial palsy, no dysarthria. CN 2-12 grossly intact, no sensory deficit, normal cognition, normal speech, no gross focal deficits. PSYCHIATRIC: alert cooperative and oriented to person, place and time. Results & Data Vital Signs (Past 12 Hours) Vital Signs Temp Pulse Pulse Pulse Resp BP Pulse Ox 03/13/19 07:59 36.6 C 81 16 145/79 H 96 03/13/19 04:00 36.8 C 75 20 112/55 L 96 03/13/19 01:26 95 H 03/12/19 23:55 36.8 C 97 H 20 105/64 93 03/12/19 22:49 36.6 C 95 H 20 96/60 L 95 Laboratory Results Short CBC 03/13/19 Range/Units 06:06 WBC 12.50 H (4.8-10.8) K/uL Hgb 11.1 L (14.0-18.0) g/dL Hct 34.9 L (42-52) % Plt Count 354 (130-400) K/uL BMP 03/13/19 06:06 Sodium 138 Potassium 3.8 Chloride 101 Carbon Dioxide 32 BUN 12 Creatinine 1.27 Glucose 165 H Calcium 9.0 Cardiac Enzymes 03/13/19 Range/Units 06:06 Total Creatine Kinase 168 (39-308) U/L Liver Function 03/13/19 Range/Units 06:06 Total Bilirubin 0.8 (0.2-1) mg/dl AST 21 (15-37) U/L ALT 22 (12-78) U/L Alkaline Phosphatase 59 (45-117) U/L Albumin 2.9 L (3.4-5.0) gm/dl Medications Administered Current Inpatient Medications Acetaminophen (Tylenol) 650 mg PO Q4H PRN PRN Reason: pain/fever Stop: 04/10/19 20:39 Atorvastatin Calcium (Lipitor) 40 mg PO QPM [facility] Stop: 04/10/19 20:59 Last Admin: 03/12/19 20:57 Dose: 40 mg Documented by: Buprenorphine HCl (Subutex) 2 mg SL BID PRN PRN Reason: Pain Stop: 04/10/19 20:39 Buprenorphine HCl (Subutex) 6 mg SL BID [facility] Stop: 04/10/19 20:59 Last Admin: 03/13/19 09:45 Dose: 6 mg Documented by: Clotrimazole (Lotrimin 1%) 1 appln TOP BID PRN PRN Reason: flare ups Stop: 04/11/19 19:04 Cyanocobalamin (Vitamin B-12) 1,000 mcg PO DAILY [facility] Stop: 04/11/19 08:59 Last Admin: 03/13/19 09:24 Dose: 1,000 mcg Documented by: Dextrose (Dextrose 50%) 25 - 50 ml IV UD PRN; Protocol PRN Reason: Hypoglycemia Protocol Stop: 04/10/19 20:39 Enalapril Maleate (Vasotec) 20 mg PO QAM [facility] Stop: 04/11/19 08:59 Last Admin: 03/13/19 09:25 Dose: 20 mg Documented by: Enalapril Maleate (Vasotec) 10 mg PO HS [facility] Stop: 04/10/19 20:59 Last Admin: 03/12/19 20:59 Dose: 10 mg Documented by: Folic Acid (Folvite) 1 mg PO DAILY [facility] Stop: 04/11/19 08:59 Last Admin: 03/13/19 09:24 Dose: 1 mg Documented by: Gabapentin (Neurontin) 800 mg PO BID [facility] Stop: 04/10/19 20:59 Last Admin: 03/13/19 09:26 Dose: 800 mg Documented by: Glucagon (Glucagen) 1 mg SQ UD PRN; Protocol PRN Reason: Hypoglycemia Protocol Stop: 04/10/19 20:39 Glucose (Dex4 Glucose) 4 - 8 tabs PO UD PRN; Protocol PRN Reason: Hypoglycemia Protocol Stop: 04/10/19 20:39 Glucose (Glucose 40%) 15 - 30 gm PO UD PRN; Protocol PRN Reason: Hypoglycemia Protocol Stop: 04/10/19 20:39 Hydromorphone HCl (Dilaudid) 1 mg IV Q3H PRN PRN Reason: Pain Stop: 03/26/19 19:04 Piperacillin Sod/Tazobactam (Sod 4.5 gm/ Dextrose) 120 mls @ 30 mls/hr IV Q8H [facility]; Protocol Stop: 03/22/19 00:00 Last Admin: 03/13/19 09:23 Dose: 30 mls/hr Documented by: Daptomycin 400 mg/ Syringe 8 mls @ 0 mls/min IV Q24H [facility]; Protocol Stop: 03/21/19 17:59 Last Admin: 03/12/19 19:25 Dose: 8 mls/min Documented by: Insulin Aspart (Novolog Flexpen) 0 units SC Q6 [facility] Stop: 04/11/19 05:59 Last Admin: 03/13/19 06:12 Dose: 2 units Documented by: Loratadine (Claritin) 10 mg PO DAILY PRN PRN Reason: allergies Stop: 04/11/19 19:04 Metoprolol Succinate (Toprol Xl) 50 mg PO DAILY [facility] Stop: 04/11/19 08:59 Last Admin: 03/13/19 09:24 Dose: 50 mg Documented by: Metoprolol Tartrate (Lopressor) 5 mg IV Q4 PRN PRN Reason: prn Stop: 04/11/19 15:59 Miscellaneous (Carbohydrates For Hypoglycemia) 15 - 30 gm PO UD PRN PRN Reason: Hypoglycemia Protocol Stop: 04/10/19 20:39 Miscellaneous Information (Consult) 1 ea N/A UD PRN PRN Reason: Consult Stop: 04/10/19 16:15 Miscellaneous Information (Consult) 1 ea N/A UD PRN PRN Reason: Consult Stop: 04/10/19 21:16 Multivitamins (Multivitamin Tab) 1 tab PO DAILY [facility] Stop: 04/11/19 08:59 Last Admin: 03/13/19 09:26 Dose: 1 tab Documented by: Nystatin/Triamcinolone Acetonide (Mycolog Ii) 1 appln EXT BID PRN PRN Reason: flare ups Stop: 04/11/19 19:04 Ondansetron HCl (Zofran) 4 mg IV Q6H PRN PRN Reason: Nausea Stop: 04/11/19 19:37 Oxycodone/Acetaminophen (Percocet 5mg/325mg) 1 tab PO Q4H PRN PRN Reason: Pain Stop: 03/26/19 19:04 Last Admin: 03/13/19 06:10 Dose: 1 tab Documented by: Polyethylene Glycol (Miralax Powder Packet) 17 gm PO DAILY PRN PRN Reason: Constipation Stop: 04/10/19 20:39 Pramipexole Dihydrochloride (Mirapex) 0.125 mg PO HS [facility] Stop: 04/10/19 20:59 Last Admin: 03/12/19 20:58 Dose: 0.125 mg Documented by: Spironolactone (Aldactone) 25 mg PO DAILY [facility] Stop: 04/11/19 08:59 Last Admin: 03/13/19 09:25 Dose: 25 mg Documented by: Torsemide (Demadex) 10 mg PO BID [facility] Stop: 04/11/19 08:59 Last Admin: 03/13/19 09:29 Dose: 10 mg Documented by: Warfarin Sodium (Coumadin) 10 mg PO MoFr@1600 [facility] Stop: 04/14/19 15:59 Warfarin Sodium (Coumadin) 7.5 mg PO SuTuWeThSa@1600 [facility] Stop: 04/11/19 15:59
[2019-03-13] MEDS ORDERED: MoRPHine SULFATE 4 MG/ML 1 ML CARP\\VIAL IV ONE (11:30)
--- NOTE | 2019-03-13 12:44 | Surgery Progress Note ---
Date of Service F/U S/P I/D abdominal wall abscess, POD 1 pt feels much better, pt denies abdominal pain, no fever, wound vac on. March 13, 2019 Assessment & Plan (1) Abdominal wall cellulitis: pt is a 58 year-old male who was admitted to hospital for abdominal wall cellulitis with abscess IMP: abdominal wall cellulitis with abscess Plan, 2 units FFP, to correct INR, I recommend to do I/D abdominal wall abscess at $:30pm, D/W benefits, risks and alternatives of the surgery, the risks - infection, bleeding, blood clot, pt and his understood, they agree with the surgery, I answered all questions, I call Dr. Bateman about the plan, 03/13/2019 12:42PM, doing better, continue IV antibiotic, culture pending, please resume coumadin tonight, repeat labs in am. will F/U (2) Abdominal wall abscess: Subjective 58 yo M with abdominal abscess s/p I&D yesterday in the OR. Feels better today. Pain controlled with medications. Tolerating PO. Tele review afib til 1:23am, then sinus rhythm until switched to aflutter since 8:11a with rate in the 80s. Review of Systems Cardiovascular: Additional Comments: A-fib, HTN Endocrine: DM Physical Exam Constitutional: WD/WN, vitals as above well developed and well nourished ENMT: external ear and nose normal, oropharynx normal Neck: trachea midline, no thyromegaly Respiratory: normal respiratory effort, lungs clear to auscultation normal respiratory effort Cardiovascular: Heart Sounds: normal S1 and normal S2 Gastrointestinal (Abdomen): normal bowel sounds, soft, nontender, no hepatosplenomegaly wound vac on, cellulitis is better, Musculoskeletal: no cyanosis or clubbing, extremities motor strength 5/5 Skin: no rashes, warm and dry Neurologic: patellar DTR's 2+ bilat, sensation intact Psychiatric: A+Ox3, euthymic affect Orientation: alert and oriented x 3 Results & Data Vital Signs (Past 12 Hours) Vital Signs Temp Pulse Pulse Pulse Resp BP Pulse Ox 03/13/19 11:29 36.9 C 106 H 16 124/78 96 03/13/19 10:55 91 H 03/13/19 07:59 36.6 C 81 16 145/79 H 96 03/13/19 04:00 36.8 C 75 20 112/55 L 96 03/13/19 01:26 95 H Laboratory Results Abnormal lab results 03/12/19 03/12/19 03/12/19 Range/Units 14:46 16:44 17:08 WBC (4.8-10.8) K/uL RBC (4.7-6.1) M/uL Hgb (14.0-18.0) g/dL Hct (42-52) % MCHC (32-36) g/dL RDW Std Deviation (36.4-46.3) fL RDW Coeff of Killian (11.5-14.5) % Immature Gran # (Auto) (0.00-0.02) K/uL Neut # (Auto) (1.4-6.5) K/uL Divide # (Auto) (0.11-0.59) K/uL Eos # (Auto) (0-0.5) K/uL PT 16.8 H 17.1 H (9.0-12.0) Seconds INR 1.7 H 1.7 H (0.9-1.1) BUN/Creatinine Ratio (-20) Glucose (70-99) mg/dl POC Glucose 158 H (70-99) mg/dl Albumin (3.4-5.0) gm/dl Globulin (2.5-4.0) gm/dl Albumin/Globulin Ratio (0.9-2) 03/12/19 03/12/19 03/13/19 Range/Units 17:57 19:24 06:06 WBC (4.8-10.8) K/uL RBC (4.7-6.1) M/uL Hgb (14.0-18.0) g/dL Hct (42-52) % MCHC (32-36) g/dL RDW Std Deviation (36.4-46.3) fL RDW Coeff of Killian (11.5-14.5) % Immature Gran # (Auto) (0.00-0.02) K/uL Neut # (Auto) (1.4-6.5) K/uL Divide # (Auto) (0.11-0.59) K/uL Eos # (Auto) (0-0.5) K/uL PT 16.2 H (9.0-12.0) Seconds INR 1.6 H (0.9-1.1) BUN/Creatinine Ratio (10-20) Glucose (70-99) mg/dl POC Glucose 169 H 188 H (70-99) mg/dl Albumin (3.4-5.0) gm/dl Globulin (2.5-4.0) gm/dl Albumin/Globulin Ratio (0.9-2) 03/13/19 03/13/19 03/13/19 Range/Units 06:06 06:06 06:14 WBC 12.50 H (4.8-10.8) K/uL RBC 3.88 L (4.7-6.1) M/uL Hgb 11.1 L (14.0-18.0) g/dL Hct 34.9 L (42-52) % MCHC 31.8 L (32-36) g/dL RDW Std Deviation 50.0 H (36.4-46.3) fL RDW Coeff of Killian 15.2 H (11.5-14.5) % Immature Gran # (Auto) 0.04 H (0.00-0.02) K/uL Neut # (Auto) 8.77 H (1.4-6.5) K/uL Divide # (Auto) 1.05 H (0.11-0.59) K/uL Eos # (Auto) 0.60 H (0-0.5) K/uL PT (9.0-12.0) Seconds INR (0.9-1.1) BUN/Creatinine Ratio 9.7 L (10-20) Glucose 165 H (70-99) mg/dl POC Glucose 188 H (70-99) mg/dl Albumin 2.9 L (3.4-5.0) gm/dl Globulin 4.8 H (2.5-4.0) gm/dl Albumin/Globulin Ratio 0.6 L (0.9-2) 03/13/19 Range/Units 11:55 WBC (4.8-10.8) K/uL RBC (4.7-6.1) M/uL Hgb (14.0-18.0) g/dL Hct (42-52) % MCHC (32-36) g/dL RDW Std Deviation (36.4-46.3) fL RDW Coeff of Killian (11.5-14.5) % Immature Gran # (Auto) (0.00-0.02) K/uL Neut # (Auto) (1.4-6.5) K/uL Divide # (Auto) (0.11-0.59) K/uL Eos # (Auto) (0-0.5) K/uL PT (9.0-12.0) Seconds INR (0.9-1.1) BUN/Creatinine Ratio (10-20) Glucose (70-99) mg/dl POC Glucose 266 H (70-99) mg/dl Albumin (3.4-5.0) gm/dl Globulin (2.5-4.0) gm/dl Albumin/Globulin Ratio (0.9-2)
[2019-03-13] MEDS: WARFARIN SOD 7.5 MG TAB PO SCH (16:46)
[2019-03-13] MEDS: DAPTOmycin 400 MG in SYRINGE 0 ML IV SCH (18:43)
[2019-03-13] MEDS: ATORVASTATIN 40 MG TAB PO SCH (20:48)
[2019-03-13] MEDS: PRAMIPEXOLE DIHYDROCHLO 0.25 MG TAB PO SCH (20:48)
[2019-03-14] MEDS: PIPERACILLIN/TAZOBACTAM 4.5 GM in DEXTROSE 5% 100 ML IV SCH ×2 (00:09→08:45)
[2019-03-14] MEDS: OXYCODONE/ACETAMINOPHEN 5mg/325mg TAB PO PRN ×2 (03:27→19:07)
[2019-03-14 05:59] LABS: Hematocrit (blood only) 33.3 % (42-52); Hemoglobin 10.4 g/dL (14.0-18.0); Mean Corpuscular Hemoglobin 27.7 pg (25-34); Mean Corpuscular Hgb Conc 31.2 g/dL (32-36); Mean Corpuscular Volume 88.8 fL (80-100); Mean Platelet Volume 10.2 fL (7.4-10.4); Platelet Count 329 K/uL (130-400); RDW Coefficient of Variation 14.9 % (11.5-14.5); RDW Standard Deviation 48.9 fL (36.4-46.3); Red Blood Count 3.75 M/uL (4.7-6.1); White Blood Count 9.88 K/uL (4.8-10.8)
[2019-03-14 06:35] LABS: BUN Creatinine Ratio 10.3 (10-20); Calcium 8.3 mg/dl (8.5-10.1); Creatinine Clr Calc Pharmacy 93.9 ml/min; Est GFR (African American) 78.4; Est GFR (Non-African American) 67.6; Potassium 3.6 mmol/L (3.5-5.1)
[2019-03-14 06:59] LABS: INR 1.6 (0.9-1.1); Prothrombin Time 15.8 Seconds (9.0-12.0)
[2019-03-14 07:04] LABS: Estimated Average Glucose 186 mg/dl; Hemoglobin A1C 8.1 % (4.5-5.6)
[2019-03-14] MEDS: TORSEMIDE 10 MG TAB PO SCH ×2 (08:28→21:37)
[2019-03-14] MEDS: SPIRONOLACTONE 25 MG TAB PO SCH (08:29)
[2019-03-14] MEDS: GABAPENTIN 800 MG TAB PO SCH ×2 (08:30→21:39)
[2019-03-14] MEDS: CYANOCOBALAMIN 500 MCG TABLET (VITAMIN B-12) PO SCH (08:31)
[2019-03-14] MEDS: MULTIVITAMIN TAB PO SCH (08:31)
[2019-03-14] MEDS: FOLIC ACID 1 MG TAB PO SCH (08:31)
[2019-03-14] MEDS: ENALAPRIL MALEATE 10 MG TAB PO SCH ×2 (08:31→21:37)
[2019-03-14] MEDS: METOPROLOL SUCC 50MG EXT REL TAB PO SCH (08:32)
[2019-03-14] MEDS: POLYETHYLENE (MIRALAX) 17 GM PACK PO SCH (08:51)
[2019-03-14] MEDS: INSULIN ASPART 100 UNITS/ML 3 ML PEN SC SCH ×4 (08:54→21:41)
[2019-03-14] MEDS: buprenorphine HCL 2 MG SUBL SL SCH ×2 (08:54→21:38)
--- NOTE | 2019-03-14 10:22 | Infectious Disease Progress Nt ---
Date of Service March 14, 2019 Assessment & Plan (1) Abdominal wall abscess: will change to roecphin for now. If no other OR planned and is he otherwise stable for d/c would suggest Keflex 500mg po tid x 21 days. Subjective s/p OR I&D wound/abscess, cultures growing MSSA, blood cultures remain negative. afebrile. remains on zosyn and dapto. tolerating well Results & Data Vital Signs (Past 12 Hours) Vital Signs Temp Pulse Pulse Pulse Resp BP Pulse Ox 03/14/19 07:52 36.4 C L 80 19 133/77 97 03/13/19 23:50 36.8 C 88 92 H 18 126/75 96 03/13/19 23:20 36.8 C 97 H 18 117/74 96 Laboratory Results Microbiology 03/12/19 17:35 Abdomen Gram Stain - Final 03/12/19 17:35 Abdomen Aerobic and Anaerobic Culture - Preliminary Staphylococcus aureus 03/11/19 16:39 Blood Aerobic Blood Culture - Preliminary No growth in Aerobic bottle after 48 hours. 03/11/19 16:39 Blood Anaerobic Blood Culture - Final 03/11/19 16:37 Blood Aerobic Blood Culture - Preliminary No growth in Aerobic bottle after 48 hours. 03/11/19 16:37 Blood Anaerobic Blood Culture - Preliminary No growth in Anaerobic bottle after 48 hours. PG Care Time/CCT Total # of Minutes Spent Total Time Spent with Patient: Total time spent is greater than 50% in coordination of care (as documented) at patient's floor/unit and/or counseling patient:
--- NOTE | 2019-03-14 11:16 | Surgery Progress Note ---
Date of Service doing better, no abdominal pain, no fever, WBC 9,000, wound VAC working well, March 14, 2019 Assessment & Plan (1) Abdominal wall cellulitis: pt is a 58 year-old male who was admitted to hospital for abdominal wall cellulitis with abscess IMP: abdominal wall cellulitis with abscess Plan, 2 units FFP, to correct INR, I recommend to do I/D abdominal wall abscess at $:30pm, D/W benefits, risks and alternatives of the surgery, the risks - infection, bleeding, blood clot, pt and his understood, they agree with the surgery, I answered all questions, I call Dr. Bateman about the plan, 03/13/2019 12:42PM, doing better, continue IV antibiotic, culture pending, please resume coumadin tonight, repeat labs in am. will F/U 03/14/2019 11:20am wound culture- staphylococcus aureus Thanks ID doctor who made treatment plan, pt can be discharged home today or tomorrow, pt will F/U [facility] wound care center, Keflex 500mg po tid x 21 days F/U md 2 weeks, Thanks, sign off today, please call any questions, (2) Abdominal wall abscess: Subjective s/p OR I&D wound/abscess, cultures growing MSSA, blood cultures remain negative. afebrile. remains on zosyn and dapto. tolerating well Review of Systems Cardiovascular: Additional Comments: A-fib, HTN Endocrine: DM Physical Exam Constitutional: WD/WN, vitals as above well developed and well nourished ENMT: external ear and nose normal, oropharynx normal Neck: trachea midline, no thyromegaly Respiratory: normal respiratory effort, lungs clear to auscultation normal respiratory effort Cardiovascular: Heart Sounds: normal S1 and normal S2 Gastrointestinal (Abdomen): normal bowel sounds, soft, nontender, no hepatosplenomegaly wound VAC working well, less redness on abdominal wall, Musculoskeletal: no cyanosis or clubbing, extremities motor strength 5/5 Skin: no rashes, warm and dry Neurologic: patellar DTR's 2+ bilat, sensation intact Psychiatric: A+Ox3, euthymic affect Orientation: alert and oriented x 3 Results & Data Vital Signs (Past 12 Hours) Vital Signs Temp Pulse Pulse Pulse Resp BP Pulse Ox 03/14/19 07:52 36.4 C L 80 19 133/77 97 03/13/19 23:50 36.8 C 88 92 H 18 126/75 96 03/13/19 23:20 36.8 C 97 H 18 117/74 96
[2019-03-14] MEDS ORDERED: cefTRIAXone SODIUM 2,000 MG in DEXTROSE 5% 50 ML IV SCH (16:00)
[2019-03-14] MEDS: WARFARIN SOD 7.5 MG TAB PO SCH (16:49)
--- NOTE | 2019-03-14 17:19 | Hospitalist Progress Note ---
Date of Service March 14, 2019 Assessment & Plan (1) Abdominal wall cellulitis: s/p I&D of central abscess in OR, now with wound vac in place. Doing well post-op. Expect lateral spreading cellulitis to the right of wound to improve with continued IV antibiotics. Continued improvement of cellulitis. Awaiting culture results and ID recommendations for narrowing antibiotics. (2) Abdominal wall abscess: s/p I&D with wound vac in place. (3) HTN (hypertension): at goal, cont home medications. (4) Diabetes mellitus, type II: holding home Victoza and oral hypoglycemics. Basal/bolus insulin while hospitalized. (5) Chronic back pain: Cont chronic home pain medications and PRN narcotics for post-op pain control. (6) Paroxysmal atrial fibrillation: Cont coumadin and Toprol for rate control. (7) Obesity: Advised to lose weight and increase lean muscle mass. (8) TINO (obstructive sleep apnea): declines hospital CPAP. (9) DVT prophylaxis: coumadin Full Code Dispo-to home when medically stable. Natividad Duckworth DO [facility] Hospitalist Subjective doing well afebrile pain is controlled tolerating PO Physical Exam Physical Exam: CONSTITUTIONAL: obese, vitals as above, generally well-appear ing EYES: normal conjunctivae, no scleral icterus ENT: MMM RESPIRATORY: clear to auscultation bilaterally, no crackles, rales or wheezes, normal respiratory effort CARDIOVASCULAR: regular rate and rhythm, S1 and 2 heard without murmurs, gallops or rubs, no JVD, no peripheral edema GASTROINTESTINAL: soft, protuberant, central wound covered with bandage that is c/d/i. Some lateral erythema spread out to the right beyond the bandage that is greatly improved with dissipated redness. Large pannus. Wound vac in place. MUSCULOSKELETAL: strength 5/5 throughout, head is normocephalic and atraumatic SKIN: warm and dry, wound and erythema as above. NEUROLOGIC: No facial palsy, no dysarthria. CN 2-12 grossly intact, no sensory deficit, normal cognition, normal speech, no gross focal deficits. PSYCHIATRIC: alert cooperative and oriented to person, place and time. Results & Data Vital Signs (Past 12 Hours) Vital Signs Temp Pulse Resp BP Pulse Ox 03/14/19 16:17 36.3 C L 86 18 116/79 97 03/14/19 07:52 36.4 C L 80 19 133/77 97 Laboratory Results Short CBC 03/14/19 Range/Units 05:33 WBC 9.88 (4.8-10.8) K/uL Hgb 10.4 L (14.0-18.0) g/dL Hct 33.3 L (42-52) % Plt Count 329 (130-400) K/uL BMP 03/14/19 05:33 Sodium 136 Potassium 3.6 Chloride 101 Carbon Dioxide 33 H BUN 12 Creatinine 1.18 Glucose 172 H Calcium 8.3 L Medications Administered Current Inpatient Medications Acetaminophen (Tylenol) 650 mg PO Q4H PRN PRN Reason: pain/fever Stop: 04/10/19 20:39 Atorvastatin Calcium (Lipitor) 40 mg PO QPM [facility] Stop: 04/10/19 20:59 Last Admin: 03/13/19 20:48 Dose: 40 mg Documented by: Buprenorphine HCl (Subutex) 2 mg SL BID PRN PRN Reason: Pain Stop: 04/10/19 20:39 Buprenorphine HCl (Subutex) 6 mg SL BID [facility] Stop: 04/10/19 20:59 Last Admin: 03/14/19 08:54 Dose: 6 mg Documented by: Clotrimazole (Lotrimin 1%) 1 appln TOP BID PRN PRN Reason: flare ups Stop: 04/11/19 19:04 Cyanocobalamin (Vitamin B-12) 1,000 mcg PO DAILY [facility] Stop: 04/11/19 08:59 Last Admin: 03/14/19 08:31 Dose: 1,000 mcg Documented by: Dextrose (Dextrose 50%) 25 - 50 ml IV UD PRN; Protocol PRN Reason: Hypoglycemia Protocol Stop: 04/10/19 20:39 Enalapril Maleate (Vasotec) 20 mg PO QAM [facility] Stop: 04/11/19 08:59 Last Admin: 03/14/19 08:31 Dose: 20 mg Documented by: Enalapril Maleate (Vasotec) 10 mg PO HS [facility] Stop: 04/10/19 20:59 Last Admin: 03/13/19 20:49 Dose: 10 mg Documented by: Folic Acid (Folvite) 1 mg PO DAILY [facility] Stop: 04/11/19 08:59 Last Admin: 03/14/19 08:31 Dose: 1 mg Documented by: Gabapentin (Neurontin) 800 mg PO BID [facility] Stop: 04/10/19 20:59 Last Admin: 03/14/19 08:30 Dose: 800 mg Documented by: Glucagon (Glucagen) 1 mg SQ UD PRN; Protocol PRN Reason: Hypoglycemia Protocol Stop: 04/10/19 20:39 Glucose (Dex4 Glucose) 4 - 8 tabs PO UD PRN; Protocol PRN Reason: Hypoglycemia Protocol Stop: 04/10/19 20:39 Glucose (Glucose 40%) 15 - 30 gm PO UD PRN; Protocol PRN Reason: Hypoglycemia Protocol Stop: 04/10/19 20:39 Hydromorphone HCl (Dilaudid) 1 mg IV Q3H PRN PRN Reason: Pain Stop: 03/26/19 19:04 Ceftriaxone Sodium 2,000 mg/ (Dextrose) 70 mls @ 100 mls/hr IV DAILY@1600 [facility]; Protocol Stop: 03/24/19 15:59 Last Admin: 03/14/19 17:06 Dose: 100 mls/hr Documented by: Insulin Aspart (Novolog Flexpen) 0 units SC ACHS [facility] Stop: 04/12/19 11:29 Last Admin: 03/14/19 13:33 Dose: 7 units Documented by: Loratadine (Claritin) 10 mg PO DAILY PRN PRN Reason: allergies Stop: 04/11/19 19:04 Metoprolol Succinate (Toprol Xl) 50 mg PO DAILY [facility] Stop: 04/11/19 08:59 Last Admin: 03/14/19 08:32 Dose: 50 mg Documented by: Metoprolol Tartrate (Lopressor) 5 mg IV Q4 PRN PRN Reason: prn Stop: 04/11/19 15:59 Miscellaneous (Carbohydrates For Hypoglycemia) 15 - 30 gm PO UD PRN PRN Reason: Hypoglycemia Protocol Stop: 04/10/19 20:39 Multivitamins (Multivitamin Tab) 1 tab PO DAILY [facility] Stop: 04/11/19 08:59 Last Admin: 03/14/19 08:31 Dose: 1 tab Documented by: Nystatin/Triamcinolone Acetonide (Mycolog Ii) 1 appln EXT BID PRN PRN Reason: flare ups Stop: 04/11/19 19:04 Ondansetron HCl (Zofran) 4 mg IV Q6H PRN PRN Reason: Nausea Stop: 04/11/19 19:37 Oxycodone/Acetaminophen (Percocet 5mg/325mg) 1 tab PO Q4H PRN PRN Reason: Pain Stop: 03/26/19 19:04 Last Admin: 03/14/19 03:27 Dose: 1 tab Documented by: Polyethylene Glycol (Miralax Powder Packet) 17 gm PO DAILY PRN PRN Reason: Constipation Stop: 04/10/19 20:39 Polyethylene Glycol (Miralax Powder Packet) 17 gm PO DAILY [facility] Stop: 04/13/19 08:59 Last Admin: 03/14/19 08:51 Dose: 17 gm Documented by: Pramipexole Dihydrochloride (Mirapex) 0.125 mg PO HS [facility] Stop: 04/10/19 20:59 Last Admin: 03/13/19 20:48 Dose: 0.125 mg Documented by: Spironolactone (Aldactone) 25 mg PO DAILY [facility] Stop: 04/11/19 08:59 Last Admin: 03/14/19 08:29 Dose: 25 mg Documented by: Torsemide (Demadex) 10 mg PO BID [facility] Stop: 04/11/19 08:59 Last Admin: 03/14/19 08:28 Dose: 10 mg Documented by: Warfarin Sodium (Coumadin) 10 mg PO MoFr@1600 [facility] Stop: 04/14/19 15:59 Warfarin Sodium (Coumadin) 7.5 mg PO SuTuWeThSa@1600 [facility] Stop: 04/11/19 15:59 Last Admin: 03/14/19 16:49 Dose: 7.5 mg Documented by:
[2019-03-14] MEDS: PRAMIPEXOLE DIHYDROCHLO 0.25 MG TAB PO SCH (21:38)
[2019-03-14] MEDS: ATORVASTATIN 40 MG TAB PO SCH (21:39)
[2019-03-15] MEDS: MULTIVITAMIN TAB PO SCH (08:41)
[2019-03-15] MEDS: GABAPENTIN 800 MG TAB PO SCH (08:41)
[2019-03-15] MEDS: SPIRONOLACTONE 25 MG TAB PO SCH (08:42)
[2019-03-15] MEDS: CYANOCOBALAMIN 500 MCG TABLET (VITAMIN B-12) PO SCH (08:42)
[2019-03-15] MEDS: buprenorphine HCL 2 MG SUBL SL SCH (08:43)
[2019-03-15] MEDS: FOLIC ACID 1 MG TAB PO SCH (08:43)
[2019-03-15] MEDS: TORSEMIDE 10 MG TAB PO SCH (08:43)
[2019-03-15] MEDS: METOPROLOL SUCC 50MG EXT REL TAB PO SCH (08:47)
[2019-03-15] MEDS: ENALAPRIL MALEATE 10 MG TAB PO SCH (08:47)
[2019-03-15] MEDS: POLYETHYLENE (MIRALAX) 17 GM PACK PO SCH (08:48)
[2019-03-15] MEDS: INSULIN ASPART 100 UNITS/ML 3 ML PEN SC SCH ×2 (08:55→13:18)
--- NOTE | 2019-03-15 13:56 | Discharge Summary ---
Date of Service March 15, 2019 Admission HPI Per Admitting Provider 58-year-old male who presents to the ED for evaluation of an abdominal wall infection. Patient reports that approximately 6 months ago, his dog stepped on his stomach causing an abrasion over the scar of a prior hernia repair. Patient reports the scab never healed and he continued to pick at it. About 1 week ago, patient noticed increasing redness and warmth to his abdominal wall. Patient was seen at his PCPs office on 03/09 and given a dose of IM Rocephin. He was seen again on 03/10 and previously outlined area had improved and he was given another dose of IM Rocephin and instructed to start p.o. Keflex today. Redness started to worsen again and he was seen again at his PCPs office today. He was then sent to the ED for further evaluation. Patient reports a small amount of drainage from the scabbed over area. He denies fevers and chills. No chest pain. Has chronic exertional shortness of breath which is unchanged from baseline. No lightheadedness, dizziness, diaphoresis, syncopal events. Denies abdominal pain, nausea, vomiting, diarrhea. No urinary symptoms. In the ED, WBC 14.8K, afebrile, hemodynamically stable, normal lactate. CT ABD/pelvis is suggesting a possible 3.3 x 4.6 cm abscess. Patient was given IV Dapto, IV Zosyn, IVF. Principal Diagnosis abdominal wall abscess with surrounding cellulitis-s/p I&D chronic pain Discharge Data Allergies Allergy/AdvReac Type Severity Reaction Status Date / Time diflunisal Allergy Unknown SEIZURE Verified 03/11/19 19:04 rivaroxaban [From Xarelto] AdvReac Severe Rash Unverified 03/12/19 15:25 Consultations 03/11/19 18:50 ED Decision to Admit Stat 03/11/19 20:40 Consult General Surgery Routine 03/12/19 10:11 Consult Infectious Diseases Routine Procedures Performed Operation Date: 03/12/19 07:00 Actual Procedures p Incision and Drainage Abdominal Wall Abscess(Not Applicable) - Nell Vance MD Ordered Studies 03/11/19 16:07 CT abd pelvis IV con only Stat Hospital Course (1) Abdominal wall cellulitis: (2) Abdominal wall abscess: 58-year-old man with diabetes and obesity presented to the emergency room for evaluation of an abdominal wall infection. Work-up included a CT of the abdomen pelvis suggested a possible 3.3 x 4.6 cm abscess. The patient was started on IV daptomycin, IV Zosyn and IV fluids and placed in the hospitalist service. General surgery was consulted and recommended incision and drainage. He went to the operating room on 03/12/2019 and underwent the incision and drainage with good result. A wound VAC was placed and abdominal wall cellulitis continue to improve with continued antibiotics. Infectious disease was consulted and recommended continuing ceftriaxone based on wound culture studies revealing MSSA. Keflex was suggested for 21 days at time of discharge. He continued to do well but did have sugary snacks from home on occasion and his blood sugar was somewhat uncontrolled. His basal bolus insulin correction was tightened at around the time of discharge and he will transition back to his home medical regimen with no changes. At time of discharge she was hemodynamically stable and afebrile and tolerating p.o. He was mentating and ambulating at baseline and reported his postoperative pain was controlled. Physical exam revealed an obese disheveled man in no acute distress with complete resolution of abdominal cellulitis and wound VAC in place. Abdomen was soft and protuberant with a large pannus in heart and lung exam was within normal limits. He was discharged in stable condition with close primary care follow-up recommended. Total Time Total Time Spent Total Time Spent (In Minutes): 60 Total Time Includes: Examination of the Patient, Discharge Planning, Medication Reconciliation and Communication With Other Providers Discharge Plan Discharge Items Patient Disposition: Home - Home Health Services Reason For Visit: ABD WALL CELLULITIS WITH ABCESS Discharge Diagnosis: abdominal wall abscess with surrounding cellulitis-s/p I&D chronic pain Activity: Per Instructions section Activity Comment: per post operative surgical instructions Non-emergency contact: Primary Care Provider and Surgeon Call non-emergency contact if: you have any medication questions, your symptoms worsen, your pain is not controlled, your pain is worsening, your pain is unusual for you, your pain is concerning for you and you have a fever Follow-up/Referrals: Joseph Goodman MD [Primary Care Provider] - 03/21/19 11:05 am Nell Vance MD [Physician] - Diet: Carb Consistent or DM2 and Low Sodium (2gm) Addtl Attending Provider Instructions: Please take all medications as instructed on discharge list below. Please follow-up with the [facility] as instructed to evaluate your abdominal wound. Home Health nursing will be coming to your home starting Monday, and caring for your current wound vac. Please contact Dr. Vance to schedule a two week follow-up appointment. [phone] Please follow all post-operative instructions given by your surgical team regarding bathing, activity restrictions and any driving restrictions. You have the following primary care appointment scheduled for evaluation after hospital discharge. 03/21/2019 11:20 AM Joseph Goodman MD Internal Medicine [facility] It was a pleasure taking care of you! Please call if you have any questions or problems. You can reach a [facility] hospitalist on duty at [facility] 24 hours a day by calling [phone]. Take care of yourself. Natividad Duckworth, DO [facility] Hospitalist Pending Studies at Discharge: Yes Studies:: preliminary blood cultures negative at time of discharge. Stand-Alone Forms: My [facility], Opioid Pain Management, Work/School Release (Inpt), Smoking Cessation Medications and DC Order Prescriptions: New cephalexin [Keflex] 500 mg capsule 500 mg PO TID 21 Days Qty: 63 RF: 0 Continued multivitamin Tablet 1 tab PO DAILY RF: 0 glipizide 10 mg Tablet 20 mg PO BID RF: 0 pramipexole [Mirapex] 0.125 mg Tablet 0.125 mg PO HS RF: 0 Victoza 2-Cody 0.6 mg/0.1 mL (18 mg/3 mL) Pen Injector 1.8 mg SUBCUT QAM RF: 0 gabapentin 800 mg Tablet 800 mg PO BID RF: 0 metformin 500 mg Tablet 1,000 mg PO BID RF: 0 potassium chloride 10 mEq Tablet Extended Release 20 meq PO DAILY RF: 0 atorvastatin 40 mg tablet 40 mg PO QPM RF: 0 enalapril maleate 20 mg tablet 20 mg PO QAM RF: 0 enalapril maleate 20 mg tablet 10 mg PO HS RF: 0 torsemide 20 mg tablet 10 mg PO BID RF: 0 warfarin 5 mg tablet 10 mg PO MOFR RF: 0 metoprolol succinate [Toprol XL] 50 mg tablet extended release 24 hr 50 mg PO DAILY RF: 0 ondansetron HCl 4 mg Tablet 4 mg PO Q6H PRN (Reason: Nausea) RF: 0 spironolactone [Aldactone] 25 mg tablet 25 mg PO DAILY RF: 0 nystatin-triamcinolone 100,000-0.1 unit/g-% Cream 1 applic TOPICAL BID PRN (Reason: flare ups) RF: 0 polyethylene glycol 3350 [Miralax] 17 gram/dose Powder 17 g PO DAILY PRN (Reason: Constipation) RF: 0 clotrimazole 1 % Cream 1 applic TOPICAL BID PRN (Reason: flare ups) RF: 0 loratadine 10 mg Tablet 10 mg PO DAILY PRN (Reason: allergies) RF: 0 buprenorphine HCl 8 mg Tablet, Sublingual 6 mg SUBLINGUAL BID RF: 0 lidocaine HCl [Aspercreme (lidocaine)] 4 % Cream 1 applic TOPICAL BID PRN (Reason: Pain) RF: 0 Narcan 4 mg/actuation [place],Non-Aerosol 4 mg INTRANASAL UD PRN (Reason: overdose) RF: 0 cyanocobalamin (vitamin B-12) [Vitamin B-12] 1,000 mcg Tablet 1,000 mcg PO DAILY RF: 0 folic acid 1 mg Tablet 1 mg PO DAILY RF: 0 warfarin 5 mg tablet 7.5 mg PO SUTUWETHSA RF: 0 buprenorphine HCl 8 mg tablet, sublingual 2 mg SUBLINGUAL BID PRN (Reason: Pain) RF: 0 Discontinued cephalexin [Keflex] 500 mg Capsule 500 mg PO QID RF: 0 Discharge Orders: Discharge Order (Routine); Ordered 03/15/19 Ordered By: Natividad Perez/Other Patient Handouts: Hyperglycemia, Hypoglycemia, Diabetes Resources, Blood Sugar Check, Diabetes Healthy Meals, Diabetes Carbs, Diabetes Eating Out, Closure Wound Vacuum Assisted Admission Data Admit Date/Time: 03/11/19 19:21 Attending Provider: Natividad Duckworth Admit Provider: Thom Laguerre Primary Care Provider: Joseph Goodman Other Providers: Thom Laguerre ; Mj Antoine ; Nataly Matos Other Interventions: Discharge Summary Assessment (RN) Last Done: 03/15/19 16:13 DC Date/Time DO NOT enter until pt leaves facility: 03/15/19 16:50
[2019-03-15] MEDS ORDERED: WARFARIN SOD 10 MG TAB PO SCH (16:00)
== END 2019-03-15 16:50 | disposition home health service (06) | DRG 580 ==
LOC: ED 14:21 → 3N 19:21 → SUATTDRO 19:21 → 3N 20:29 → 2N 03-12 12:18 → 3W 03-13 23:51

== ENCOUNTER 2020-08-27 10:06 | Observation (INO) ==
[2020-08-27] MEDS ORDERED: fentaNYL citrate 100 MCG/2 ML VIAL ONE (15:36)
[2020-08-27] MEDS ORDERED: SUCCINYLCHOLINE CHLORIDE 20 MG/ML 10 ML VIAL IV ONE (15:36)
[2020-08-27] MEDS ORDERED: ROCURONIUM BROMIDE 10 MG/ML 5 ML VIAL IV ONE (15:36)
[2020-08-27] MEDS ORDERED: PROPOFOL IV EMULSION 10 MG/ML 20 ML VIAL IV ONE (15:36)
[2020-08-27] MEDS ORDERED: ONDANSETRON INJ 2 MG/ML 2 ML VIAL ONE ×2 (15:36→16:35)
[2020-08-27] MEDS ORDERED: MIDAZOLAM HCL 1 MG/ML 2ML VIAL ONE (15:36)
[2020-08-27] MEDS ORDERED: LIDOCAINE 2% 2 ML VIAL/AMP(20MG/ML) INFIL ONE (15:36)
--- NOTE | 2020-08-27 15:53 | Surgery Consultation ---
Date of Consultation August 27, 2020 Assessment & Plan (1) Cellulitis of abdominal wall: (2) Abdominal wall abscess: pt is a 59 year-old male who presents with abdominal wall infection, IMP: abdominal wall abscess and cellulitis, Plan, I recommend to do I/D abdominal wall abscess, possible exploratory laparotomy, bowel resection or stoma, D/W benefits, risks and alternatives of the surgery, the risks - infection, bleeding, recurrence, injury other organs, sepsis, pt understood, he and his agree with the surgery, I answered all questions,possible place wound VAC after surgery, pre-op antibiotic, Present on Admission?: Yes History of Present Illness Attending Physician: Nell Vance MD CC: abdominal wall infection HPI: pt is a 59 year-old male who presents to my office with 5 days history abdominal wall infection, with redness, tenderness, pt went to ER , pt had CT scan diagnosis- abdominal wall abscess, pt denies fever, WBC 16,000, pt was told he should stay hospital for further treatment, but pt went home last night, pt had ventral hernia repair with mesh 2.5 years ago, pt had I/D abdominal wall abscess 1 year ago, I reviewed CT scan ( 08/26/2020) finding with pt, Allergies Allergy/AdvReac Type Severity Reaction Status Date / Time diflunisal Allergy Unknown SEIZURE Verified 08/26/20 16:45 rivaroxaban [From Xarelto] AdvReac Severe Rash Verified 08/26/20 16:45 adhesive tape AdvReac Rash Verified 08/27/20 15:24 Iodinated Contrast Media AdvReac Rash Verified 08/27/20 15:24 Home Medications Medication Instructions Recorded Confirmed Type Victoza 2-Cody 1.8 mg SUBCUT QAM 11/14/17 08/26/20 History glipizide 20 mg PO BID 11/14/17 08/26/20 History multivitamin 1 tab PO DAILY 11/14/17 08/26/20 History gabapentin 800 mg PO BID 01/02/18 08/26/20 History metformin 1,000 mg PO BID 01/02/18 08/26/20 History potassium chloride 10 meq PO BID 01/02/18 08/26/20 History atorvastatin 40 mg PO QPM 10/08/18 08/26/20 History enalapril maleate See Rx Instructions .ROUTE .COMPLEX 10/08/18 08/26/20 History torsemide 10 mg PO BID 10/08/18 08/26/20 History buprenorphine HCl 8 mg SUBLINGUAL .BID-TID PRN 03/11/19 08/26/20 History cyanocobalamin (vitamin B-12) 1,000 mcg PO DAILY 03/11/19 08/26/20 History [Vitamin B-12] folic acid 1 mg PO DAILY 03/11/19 08/26/20 History loratadine 10 mg PO DAILY PRN 03/11/19 08/26/20 History metoprolol succinate [Toprol XL] 75 mg PO DAILY 03/11/19 08/26/20 History ondansetron HCl 4 mg PO Q6H PRN 03/11/19 08/26/20 History polyethylene glycol 3350 [Miralax] 17 g PO BID PRN 03/11/19 08/26/20 History spironolactone [Aldactone] 25 mg PO DAILY 03/11/19 08/26/20 History warfarin 7.5 mg PO DAILY 03/11/19 08/26/20 History empagliflozin [Jardiance] 10 mg PO DAILY 11/06/19 08/26/20 History pantoprazole [Protonix] 40 mg PO DAILY #30 tab 11/24/19 08/26/20 Rx sennosides-docusate sodium [Senna 2 tab-cap PO DAILY #30 tab 11/24/19 08/26/20 Rx with Docusate Sodium] amoxicillin-pot clavulanate 1 tab PO BID 08/26/20 08/26/20 History doxycycline hyclate 100 mg PO BID 08/26/20 08/26/20 History Patient History Medical History (Updated 08/27/20 @ 15:55 by Nell Vance MD) Abdominal wall abscess Abdominal wall cellulitis Anxiety Asthma Atrial flutter Chronic back pain Chronic diastolic CHF (congestive heart failure) Depression Diabetes mellitus, type II Fibromyalgia HLD (hyperlipidemia) HTN (hypertension) Lumbar radiculopathy Morbid obesity Obesity TINO (obstructive sleep apnea) Paroxysmal atrial fibrillation Peripheral neuropathy Seizure DIFLUNISAL REACTION- 2007 PER S RECORDS Sensorineural hearing loss Surgical History H/O cervical discectomy H/O umbilical hernia repair 11/19/2010- Dr. 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 Beliefs That Will Affect Care: None marital status: Current Living Situation: Spouse Other Information That Helps Us Care for You: No Feels Safe at Home: Yes Safety Concerns: Feels Safe At This Time Assistive Devices: None Review of Systems Review of Systems: All systems reviewed & are unremarkable except as noted in HPI & below Constitutional: as per Subjective / HPI obesity Eyes: as per Subjective / HPI Ear, Nose, Mouth, Throat: as per Subjective / HPI Respiratory: as per Subjective / HPI Cardiovascular: as per Subjective / HPI Additional Comments: HTN, CHF, paroxysmal atrial fib Gastrointestinal: as per Subjective / HPI repair ventral hernia with mesh 2.5 years ago, I/D abdominal wall abscess one year ago, Genitourinary: + as per Subjective / HPI Musculoskeletal: as per Subjective / HPI back pain Integumentary: as per Subjective / HPI Neurologic: as per Subjective / HPI Psychiatric: as per Subjective / HPI Endocrine: as per Subjective / HPI Hematologic / Lymphatic: as per Subjective / HPI Physical Exam Constitutional: WD/WN, vitals as above well developed and well nourished obesity Eyes: PERRL, conjunctivae normal, anicteric sclerae ENMT: external ear and nose normal, oropharynx normal Neck: trachea midline, no thyromegaly Respiratory: normal respiratory effort, lungs clear to auscultation normal respiratory effort Cardiovascular: RRR, no murmur, no edema Rate/Rhythm: regular rate and regular rhythm Gastrointestinal (Abdomen): normal bowel sounds, soft, nontender, no hepatosplenomegaly some redness and tenderness at right side abdomen near umbilical area, no drainage, BS +, no distend Musculoskeletal: no cyanosis or clubbing, extremities motor strength 5/5 Skin: some skin rash on bilateral buttock, pt said after pt had IV contrast study, with CT scan, yesterday, Neurologic: awake Psychiatric: Orientation: alert and oriented x 3 Results & Data ([facility]) Vital Signs (Past 12 Hours) Vital Signs Temp Pulse Resp BP Pulse Ox 08/27/20 15:24 36.9 C 101 H 20 111/77 97 Laboratory Results Abnormal lab results 08/27/20 Range/Units 15:27 POC Glucose 171 H (70-99) mg/dl Diagnostic Findings CT SCAN OF THE ABDOMEN AND PELVIS WITH IV CONTRAST CLINICAL HISTORY: Abdominal wall cellulitis. COMPARISON STUDY: Abdominal CT dated 11/24/2019. TECHNIQUE: Following the IV administration of 93 cc of Optiray 320, CT scan of the abdomen and pelvis is performed from the lung bases to the proximal femora. Images are reviewed in the axial, sagittal, and coronal planes. IV contrast was administered without complication. A dose lowering technique was utilized adhering to the principles of ALARA. The examination is degraded by streak artifact from the left arm which could not be elevated above the abdomen. CT DOSE: 1304.62 mGycm FINDINGS: Lung bases: The heart is normal in size and without pericardial effusion. The lung bases are clear. There is a tiny hiatal hernia. Liver: The contrast-enhanced liver is enlarged, measuring 22.1 cm in length. The liver demonstrates diffusely diminished attenuation consistent with hepatic steatosis. There is nodularity of the surface contour suggesting early change of cirrhosis. There is no intrahepatic biliary ductal dilatation. The hepatic veins and portal veins are patent. Gallbladder: Surgically absent noting clips in the gallbladder fossa. Spleen: Normal in size and attenuation. Pancreas: Unremarkable. Adrenal glands: Unremarkable. Kidneys: The contrast enhanced kidneys are normal in size and without hydronephrosis. The kidneys enhance symmetrically. Abdominal vasculature: The abdominal aorta is normal in course and caliber noting mild atherosclerotic calcification. Bowel: There is moderate colonic diverticulosis without CT evidence of acute diverticulitis. No bowel obstruction is seen. The appendix is normal as visualized. Peritoneum: There is no intraperitoneal free air or abdominal ascites. Lymphadenopathy: None. Pelvic viscera: The bladder, prostate, and seminal vesicles are normal as visualized. Skeletal structures: The skeletal structures appear osteopenic. There is mild to moderate lumbosacral spondylosis. Degenerative change is also noted in the sacroiliac joints. No lytic or blastic lesions are seen. Soft tissues: There is a metallic foreign body within the ventral upper abdominal wall seen on image #115. This is unchanged from previous. There is evidence of previous umbilical hernia repair. There are fat-containing suprarenal umbilical hernias. There is induration within the supraumbilical abdominal wall just right of midline. There is overlying dermal thickening, with a small organized fluid collection just the right of midline seen on axial image #286. This measures 3.3 x 2.9 x 2.8 cm, and is typical for abscess. Minimal inflammatory change is seen deep to the peritoneal reflection on image #244. No intraperitoneal fluid collection is identified. IMPRESSION: 1. There is evidence of cellulitis within the supraumbilical subcutaneous soft tissues. 2. A 3.3 cm fluid collection to the right of midline within this region is typical for abscess. 3. There is mild inflammatory change deep to the peritoneal reflection, likely related to fat-containing supraumbilical hernias. No intraperitoneal fluid collection is identified. 4. Postoperative change is consistent with previous umbilical hernia repair. 5. Colonic diverticulosis without CT evidence of acute diverticulitis. 6. The liver is enlarged and steatotic. Nodularity of the hepatic surface contour suggests early change of cirrhosis. 7. A metallic foreign body is again seen within the ventral abdominal wall. 8. Additional findings as above.
--- NOTE | 2020-08-27 15:57 | Anesthesiology Consultation ---
Date of Service August 27, 2020 Assessment & Plan Chart Review Chart Review: barratte operator initiated History Surgery Operation Date: 08/27/20 13:35 Proposed Procedures p Incision and Drainage Abdominal Wall Abcess - Nell Vance MD Height/Weight Height: 5 ft 8 in Weight: 130.7 kg Allergies Allergy/AdvReac Type Severity Reaction Status Date / Time diflunisal Allergy Unknown SEIZURE Verified 08/26/20 16:45 rivaroxaban [From Xarelto] AdvReac Severe Rash Verified 08/26/20 16:45 adhesive tape AdvReac Rash Verified 08/27/20 15:24 Iodinated Contrast Media AdvReac Rash Verified 08/27/20 15:24 Medications Home Medications Medication Instructions Recorded Confirmed Last Taken Victoza 2-Cody 1.8 mg SUBCUT QAM 11/14/17 08/26/20 08/26/20 glipizide 20 mg PO BID 11/14/17 08/26/20 08/26/20 multivitamin 1 tab PO DAILY 11/14/17 08/26/20 08/26/20 gabapentin 800 mg PO BID 01/02/18 08/26/20 08/26/20 08:00 metformin 1,000 mg PO BID 01/02/18 08/26/20 08/26/20 08:00 potassium chloride 10 meq PO BID 01/02/18 08/26/20 08/26/20 08:00 atorvastatin 40 mg PO QPM 10/08/18 08/26/20 08/25/20 enalapril maleate See Rx Instructions .ROUTE .COMPLEX 10/08/18 08/26/20 08/26/20 08:00 torsemide 10 mg PO BID 10/08/18 08/26/20 08/26/20 08:00 buprenorphine HCl 8 mg SUBLINGUAL .BID-TID PRN 03/11/19 08/26/20 Unknown cyanocobalamin (vitamin B-12) 1,000 mcg PO DAILY 03/11/19 08/26/20 08/26/20 [Vitamin B-12] folic acid 1 mg PO DAILY 03/11/19 08/26/20 08/26/20 loratadine 10 mg PO DAILY PRN 03/11/19 08/26/20 Unknown metoprolol succinate [Toprol XL] 75 mg PO DAILY 03/11/19 08/26/20 08/26/20 ondansetron HCl 4 mg PO Q6H PRN 03/11/19 08/26/20 Unknown polyethylene glycol 3350 [Miralax] 17 g PO BID PRN 03/11/19 08/26/20 Unknown spironolactone [Aldactone] 25 mg PO DAILY 03/11/19 08/26/20 08/26/20 warfarin 7.5 mg PO DAILY 03/11/19 08/26/20 08/25/20 23:59 empagliflozin [Jardiance] 10 mg PO DAILY 11/06/19 08/26/20 08/26/20 pantoprazole [Protonix] 40 mg PO DAILY #30 tab 11/24/19 08/26/20 08/26/20 sennosides-docusate sodium [Senna 2 tab-cap PO DAILY #30 tab 11/24/19 08/26/20 08/26/20 with Docusate Sodium] amoxicillin-pot clavulanate 1 tab PO BID 08/26/20 08/26/20 08/26/20 08:00 doxycycline hyclate 100 mg PO BID 08/26/20 08/26/20 08/26/20 08:00 NPO Date Last Intake of Fluids: 08/27/20 Time Last Intake of Fluids: 08:00 Date Last Intake of Solids: 08/27/20 Time Last Intake of Solids: 08:00 Past Medical History Medical History (Updated 08/27/20 @ 15:55 by Nell Vance MD) Abdominal wall abscess Abdominal wall cellulitis Anxiety Asthma Atrial flutter Chronic back pain Chronic diastolic CHF (congestive heart failure) Depression Diabetes mellitus, type II Fibromyalgia HLD (hyperlipidemia) HTN (hypertension) Lumbar radiculopathy Morbid obesity Obesity TINO (obstructive sleep apnea) Paroxysmal atrial fibrillation Peripheral neuropathy Seizure DIFLUNISAL REACTION- 2007 PER [facility] RECORDS Sensorineural hearing loss Past Family History Family History Mother Hypertension Past Surgical History Surgical History H/O cervical discectomy H/O umbilical hernia repair 11/19/2010- Dr. Gerson Hickey H/O ventral hernia repair History of cholecystectomy LAP Social History Smoking Status: Never smoker tobacco type: cigarettes and cigars Hx Alcohol Use: No Hx Substance Use: No substance use type: does not use Physical Exam Vital Signs Last Vital Signs Temp 98.4 F 08/27/20 15:24 Pulse 101 H 08/27/20 15:24 Resp 20 08/27/20 15:24 BP 111/77 08/27/20 15:24 Pulse Ox 97 08/27/20 15:24 Lab Results Anesthesia Preop Results Results Anesthesia Widget: WBC 16.29 K/uL (4.8-10.8) H 08/26/20 Hgb 13.4 g/dL (14.0-18.0) L 08/26/20 Hct 40.3 % (42-52) L 08/26/20 Plt 286 K/uL (130-400) 08/26/20 Na 135 mmol/L (136-145) L 08/26/20 K 4.2 mmol/L (3.5-5.1) 08/26/20 Cl 102 mmol/L (98-107) 08/26/20 CO2 30 mmol/L (21-32) 08/26/20 BUN 21 mg/dl (7-18) H 08/26/20 Creat 1.15 mg/dl (0.6-1.4) 08/26/20 Glucose Level 141 mg/dl (70-99) H 08/26/20 POC Glucose 171 mg/dl (70-99) H 08/27/20 PT 11.9 Seconds (9.0-12.0) 08/26/20 PTT 28.6 Seconds (21.0-31.0) 08/26/20 INR 1.2 (0.9-1.1) H 08/26/20 COVID-19 PCR NEGATIVE (Negative) 08/26/20 SARS-CoV-2, RNA, NAAT NEGATIVE (NEGATIVE) 08/27/20 Testing Laboratory Results 08/27/20 15:27 POC Glucose 171 H Electrocardiogram Date: 11/06/19 Findings: + NSR @ (78 bpm) Chest X-Ray Date: 04/08/19 IMPRESSION: Cardiomegaly without acute process.
[2020-08-27] MEDS ORDERED: ONDANSETRON INJ 2 MG/ML 2 ML VIAL IV PRN (15:59)
[2020-08-27] MEDS ORDERED: ATROPINE SULFATE 0.1 MG/ML 10ML SYR IV PRN (15:59)
[2020-08-27] MEDS ORDERED: ePHEDrine sulfate 50 MG/ML AMP IV PRN (15:59)
[2020-08-27] MEDS ORDERED: fentaNYL citrate 100 MCG/2 ML VIAL IV PRN (15:59)
[2020-08-27] MEDS ORDERED: PIPERACILL/TAZOBAC CONSULT ACTIVE PRN ×2 (16:00→18:07)
[2020-08-27] MEDS ORDERED: PIPERACILLIN/TAZOBACTAM 4.5 GM in DEXTROSE 5% 100 ML IV ONE (16:00)
--- NOTE | 2020-08-27 16:00 | History & Physical Bridge Note ---
Date of Service August 27, 2020 History & Physical Bridge Note I have examined the patient, reviewed the History & Physical and in the interval since the performance of the History & Physical I have noted the following changes of clinical significance: no changes noted
[2020-08-27] MEDS ORDERED: BACITRACIN OINT 15 GM TUBE ONE (16:15)
[2020-08-27] MEDS ORDERED: BUPIVACAINE 0.5 % 5 MG/1 ML MPF 30ML VIAL ONE (16:16)
[2020-08-27] MEDS ORDERED: LIDOCAINE 1% LOCAL 20 ML VIAL ONE (16:16)
--- NOTE | 2020-08-27 16:58 | Post Operative Brief Note ---
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
[2020-08-27] MEDS ORDERED: diphenhydrAMINE Capsule 25 MG CAP PO SCH (17:00)
[2020-08-27] MEDS ORDERED: VANCOMYCIN CONSULT ACTIVE PRN (17:35)
--- NOTE | 2020-08-27 17:36 | Operative Report (OR) ---
DATE OF SURGERY: 08/27/2020 PREOPERATIVE DIAGNOSIS: Abdominal wall abscess. POSTOPERATIVE DIAGNOSIS: Abdominal wall abscess. PROCEDURE: Incision and drainage of abdominal wall abscess and placement of wound VAC. SURGEON: Nell Vance MD. ANESTHESIA: General. ESTIMATED BLOOD LOSS: About 3 mL. FINDINGS: Abdominal wall abscess, size about 3 x 4 cm. COMPLICATIONS: None. Wound culture sent. INDICATIONS OF THE PROCEDURE: This is a 59-year-old gentleman who presented with abdominal wall infection and the patient had a CT scan diagnosis of abdominal wall abscess. I recommended to do the incision and drainage of abdominal wall abscess, possible exploratory laparotomy, possible bowel resection and stoma and placement of wound VAC. I did talk to the patient about the benefit, risk and alternate procedure. I indicated the risks may include, but not limited to, such as bleeding, infection, recurrence, may need more procedure, sepsis. The patient understands and he signed informed consent and I answered all questions. DETAILS OF PROCEDURE: After we identified the patient and verified the procedure, we brought the patient to the OR, put the patient on the supine position. The patient received SCD on bilateral legs to prevent DVT. Also, patient received 4.5 grams of Zosyn IV for prophylactic antibiotic. The patient received general anesthesia without difficulty. His abdomen was prepped and draped in a routine sterile fashion. After timeout, I made about 3 cm incision on the abscess on the right side of the abdominal wall near the umbilical area. After we removed the scar, there was some pus coming out immediately. We sent a wound culture and then we cleaned up the abscess cavity and used normal saline to wash out the abscess. Then, we found that it is only the abdominal wall abscess, not connected to inside the abdominal cavity. At this moment, we put a PREVENA wound VAC on, the wound size about 2x4cm, turned on the machine, and the patient tolerated the procedure well. All instrument, needle, sponge counts were correct x2 at the end of the case. The patient was transferred to recovery room in stable condition. After the procedure, I did talk to the patient and patient's family member about the OR finding and the procedure we did, they understand. Job ID: [id number] [facility]
[2020-08-27] MEDS ORDERED: VANCOMYCIN HCL 2,500 MG in SODIUM CHLORIDE 0.9% 500 ML IV STA (17:43)
--- NOTE | 2020-08-27 17:48 | Anesthesiology Progress Note ---
Date of Service August 27, 2020 Anesthesia Post Procedure Vital Signs Vital Signs: Temp Pulse Pulse Resp BP BP Pulse Ox 08/27/20 17:40 73 20 134/65 100 08/27/20 17:30 75 16 146/74 H 100 08/27/20 17:20 74 18 112/86 99 08/27/20 17:12 36.1 C L 84 20 144/87 H 97 08/27/20 16:27 37.6 C H 107 H 20 114/74 94 08/27/20 15:24 36.9 C 101 H 20 111/77 97 Transfer of Care Handoff Completed per policy Notes Mental Status: alert / awake / arousable Patient Amnestic to Procedure: Yes Nausea / Vomiting: adequately controlled Pain: adequately controlled Airway Patency, RR, SpO2: stable & adequate BP & HR: stable & adequate Hydration State: stable & adequate Anesthetic Complications: no major complications apparent and Pt Satisfied with anesthetic care
[2020-08-27] MEDS ORDERED: POLYETHYLENE (MIRALAX) 17 GM PACK PO PRN (18:07)
[2020-08-27] MEDS ORDERED: LORATADINE 10 MG TAB PO PRN (18:07)
[2020-08-27] MEDS ORDERED: ENALAPRIL MALEATE 10 MG TAB SCH (18:07)
[2020-08-27] MEDS ORDERED: oxyCODONE/ACETAMINOPHEN 5mg/325mg TAB PO PRN (18:07)
[2020-08-27] MEDS ORDERED: ONDANSETRON 4 MG OD TAB PO PRN (18:07)
[2020-08-27] MEDS ORDERED: metFORMIN HCL 500 MG TAB PO SCH (19:30)
[2020-08-27] MEDS ORDERED: TORSEMIDE 10 MG TAB PO SCH (19:30)
[2020-08-27 19:37] LABS: Albumin Level 2.8 gm/dl (3.4-5.0); BUN Creatinine Ratio 16.5 (10-20); Calcium 8.8 mg/dl (8.5-10.1); Creatinine Clr Calc Pharmacy 96.3 ml/min; Est GFR (African American) 85.7 ml/min; Est GFR (Non-African American) 73.9 ml/min; Potassium 4.4 mmol/L (3.5-5.1)
[2020-08-27 19:39] LABS: Creatinine Clr Calc Pharmacy 95.4 ml/min; Est GFR (African American) 84.7 ml/min; Est GFR (Non-African American) 73.1 ml/min
[2020-08-27 19:40] LABS: Albumin Globulin Ratio 0.6 (0.9-2); Bilirubin,Total 1.3 mg/dl (0.2-1); Globulin 4.5 gm/dl (2.5-4.0); Total Protein 7.3 gm/dl (6.4-8.2)
[2020-08-27] MEDS ORDERED: CARBOHYDRATES FOR HYPOGLYCEMIA PO PRN (19:42)
[2020-08-27] MEDS ORDERED: GLUCOSE 10 TABS/TUBE PO PRN (19:42)
[2020-08-27] MEDS ORDERED: GLUCOSE 40% GEL 15 GM TUBE PO PRN (19:42)
[2020-08-27] MEDS ORDERED: GLUCAGON FOR INJ 1 MG VIAL SQ PRN (19:42)
[2020-08-27] MEDS ORDERED: DEXTROSE 50% 50 ML SYRINGE IV PRN (19:42)
--- NOTE | 2020-08-27 20:01 | Hospitalist Consultation ---
Date of Consultation August 27, 2020 Assessment & Plan (1) Abdominal wall abscess: -POD# 0 abdominal wall abscess I&D with wound VAC placement by Dr. Vance -Management as per general surgery -On IV Vanco and Zosyn, continue with pending blood and operative cultures -Afebrile, check CBC (2) Diabetes mellitus, type II: -Hgb A1c 7.1 04/2020 -Hold oral agents and utilize NovoLog per protocol while hospitalized (3) HTN (hypertension): -BP controlled, continue enalapril and metoprolol (4) Chronic diastolic CHF (congestive heart failure): -Appears euvolemic -Hold diuretics for now pending a.m. labs and volume status (5) Paroxysmal atrial fibrillation: -Rate controlled on metoprolol -On Coumadin, INR 1.2 on 08/26 -Resume Coumadin at the discretion of general surgery (6) TINO (obstructive sleep apnea): -CPAP as per home settings (7) Chronic back pain: -On chronic Subutex (8) DVT prophylaxis: -TEDs/SCDs as per general surgery Thank you for this consultation. We will follow the patient with you during their hospital stay. You can reach a member of the [facility] Hospitalist Team 19/09 via the [facility] Hospitalist role in [place] Text. Supervising Physician Co-Signing Physician Notes I have seen and examined the patient and have discussed the case with the provider above. I agree with the assessment and plan as stated. 59 yo M with superficial abdominal wall abscess that developed approximately 1 week ago. The infection was unsuccessfully treated with Augmentin and he came to the ER. Although he was recommended to stay he went home and came back again subsequently undergoing an incision and drainage in the OR this evening by Dr. Vance. Medicine has been consulted for medication management. Overall he is doing well postoperatively with minimal pain and discomfort. Wound VAC is in place and physical exam as above. He is in no acute distress and vitals are stable. Continue management as above. Hold glipizide Jardiance and Ozempic and utilize insulin during the hospitalization. Await surgical okay prior to restarting warfarin for atrial fibrillation. Thank you for this consultation. DO Gucci History of Present Illness Reason for Consultation: Postop medical management Requesting Physician: Dr. Vance Attending Physician: Dr. Duckworth History of Present Illness 59-year-old male with PMH DM type II, TINO on CPAP, chronic diastolic CHF, paroxysmal atrial fibrillation anticoagulated on Coumadin, chronic back pain on Subutex, and other problems listed below who is status post I&D of abdominal wall abscess and wound VAC placement today by Dr. Vance. A few days ago, patient noted a hard red area just above his umbilicus. He developed surrounding erythema and eventually his entire abdominal wall was erythematous. Patient was seen by PCP on 08/25 and placed on Augmentin. Patient developed a fever and erythema was worsening so therefore he was seen in the ED yesterday and underwent CT ABD/pelvis that showed a 3.3 cm fluid collection suggestive of abscess. Patient was offered admission however declined. Was seen as an outpatient today by general surgery and was referred back to the ED. Patient was taken to the OR for aforementioned procedure. Postoperatively, the patient is doing well. He reports his pain is well controlled. He denies chest pain or shortness of breath. No abdominal pain or nausea. Denies lightheadedness, dizziness. Tolerated dinner. Allergies Allergy/AdvReac Type Severity Reaction Status Date / Time diflunisal Allergy Unknown SEIZURE Verified 08/26/20 16:45 rivaroxaban [From Xarelto] AdvReac Severe Rash Verified 08/26/20 16:45 adhesive tape AdvReac Rash Verified 08/27/20 15:24 Iodinated Contrast Media AdvReac Rash Verified 08/27/20 15:24 Home Medications Medication Instructions Recorded Confirmed Type glipizide 20 mg PO BID 11/14/17 08/27/20 History multivitamin 1 tab PO DAILY 11/14/17 08/27/20 History gabapentin 800 mg PO BID 01/02/18 08/27/20 History metformin 1,000 mg PO BID 01/02/18 08/27/20 History potassium chloride 10 meq PO BID 01/02/18 08/27/20 History atorvastatin 40 mg PO QPM 10/08/18 08/27/20 History torsemide 10 mg PO BID 10/08/18 08/27/20 History buprenorphine HCl 8 mg SUBLINGUAL TID 03/11/19 08/27/20 History loratadine 10 mg PO DAILY PRN 03/11/19 08/27/20 History metoprolol succinate [Toprol XL] 75 mg PO BID 03/11/19 08/27/20 History ondansetron HCl 4 mg PO Q6H PRN 03/11/19 08/27/20 History polyethylene glycol 3350 [Miralax] 17 g PO BID PRN 03/11/19 08/27/20 History spironolactone [Aldactone] 12.5 mg PO BID 03/11/19 08/27/20 History warfarin 7.5 mg PO DAILY 03/11/19 08/27/20 History amoxicillin-pot clavulanate 1 tab PO BID 08/26/20 08/27/20 History empagliflozin [Jardiance] 25 mg PO DAILY 08/27/20 08/27/20 History enalapril maleate 10 mg PO HS 08/27/20 08/27/20 History enalapril maleate 20 mg PO DAILY 08/27/20 08/27/20 History semaglutide [Ozempic] 0.5 mg SUBCUT WK 08/27/20 08/27/20 History Patient History Medical History Anxiety Asthma Chronic back pain Chronic diastolic CHF (congestive heart failure) Depression Diabetes mellitus, type II Fibromyalgia HLD (hyperlipidemia) HTN (hypertension) Lumbar radiculopathy Obesity TINO (obstructive sleep apnea) Paroxysmal atrial fibrillation Peripheral neuropathy Seizure DIFLUNISAL REACTION- 2007 PER [facility] [place] [facility] Sensorineural hearing loss Surgical History H/O cervical discectomy H/O umbilical hernia repair 11/19/2010- Dr. Gerson Hickey H/O ventral hernia repair History of cholecystectomy LAP Family History Mother Hypertension Social History Smoking Status: Never smoker Second Hand Exposure: No; Hx Alcohol Use: No Hx Substance Use: No Preferred Language: Qatari Communication Ability: Effective Tree Chipper Required: No Beliefs That Will Affect Care: None marital status: Current Living Situation: Spouse Other Information That Helps Us Care for You: No Feels Safe at Home: Yes Safety Concerns: Feels Safe At This Time Assistive Devices: Denture - Upper, Denture - Lower and Oxygen - Continuous Review of Systems Review of Systems: ROS per HPI, all other systems reviewed and negative Physical Exam Constitutional: WD/WN, vitals as above Eyes: PERRL, conjunctivae normal, anicteric sclerae ENMT: external ear and nose normal, oropharynx normal Respiratory: normal respiratory effort, lungs clear to auscultation Cardiovascular: Rate/Rhythm: regular rate and regular rhythm Vessels: normal peripheral pulses Extremities: no edema Gastrointestinal (Abdomen): normal bowel sounds, soft, nontender, no hepatosplenomegaly Musculoskeletal: no cyanosis or clubbing, extremities motor strength 5/5 Skin: no rashes, warm and dry Wound VAC in place to mid abdomen Neurologic: PERRL, EOMI, accommodation nl, no face palsy, no dysarthria Psychiatric: A+Ox3, euthymic affect Results & Data Results & Data ([facility]) Vital Signs (Past 12 Hours) Vital Signs Temp Pulse Pulse Resp BP BP Pulse Ox 08/27/20 18:40 36.5 C 71 20 105/62 100 08/27/20 18:10 36.9 C 75 18 114/72 99 08/27/20 18:00 73 20 122/74 100 08/27/20 17:50 70 20 120/72 100 08/27/20 17:40 73 20 134/65 100 08/27/20 17:30 75 16 146/74 H 100 08/27/20 17:20 74 18 112/86 99 08/27/20 17:12 36.1 C L 84 20 144/87 H 97 08/27/20 16:27 37.6 C H 107 H 20 114/74 94 08/27/20 15:24 36.9 C 101 H 20 111/77 97 Laboratory Results [facility] 08/27/20 08/27/20 18:38 18:38 Sodium 138 Potassium 4.4 Chloride 106 Carbon Dioxide 32 BUN 18 Creatinine 1.09 1.10 Glucose 132 H Calcium 8.8 Liver Function 08/27/20 Range/Units 18:38 Total Bilirubin 1.3 H (0.2-1) mg/dl AST 12 L (15-37) U/L ALT 20 (12-78) U/L Alkaline Phosphatase 57 (45-117) U/L Albumin 2.8 L (3.4-5.0) gm/dl Diagnostic Findings CT ABD/pelvis 08/26/2020: IMPRESSION: 1. There is evidence of cellulitis within the supraumbilical subcutaneous soft tissues. 2. A 3.3 cm fluid collection to the right of midline within this region is typical for abscess. 3. There is mild inflammatory change deep to the peritoneal reflection, likely related to fat-containing supraumbilical hernias. No intraperitoneal fluid collection is identified 4. Postoperative change is consistent with previous umbilical hernia repair. 5. Colonic diverticulosis without CT evidence of acute diverticulitis. 6. The liver is enlarged and steatotic. Nodularity of the hepatic surface contour suggests early change of cirrhosis. 7. A metallic foreign body is again seen within the ventral abdominal wall. 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
[2020-08-27 20:32] LABS: Hematocrit (blood only) 35.7 % (42-52); Hemoglobin 11.7 g/dL (14.0-18.0); Mean Corpuscular Hemoglobin 29.1 pg (25-34); Mean Corpuscular Hgb Conc 32.8 g/dL (32-36); Mean Corpuscular Volume 88.8 fL (80-100); Mean Platelet Volume 10.5 fL (7.4-10.4); Platelet Count 320 K/uL (130-400); RDW Coefficient of Variation 15.6 % (11.5-14.5); RDW Standard Deviation 50.7 fL (36.4-46.3); Red Blood Count 4.02 M/uL (4.7-6.1); White Blood Count 14.74 K/uL (4.8-10.8)
[2020-08-27] MEDS: METOPROLOL SUCC 25MG EXT REL TAB PO SCH (20:53)
[2020-08-27] MEDS: POTASSIUM CHLORIDE 10 MEQ TABCR PO SCH (20:53)
[2020-08-27] MEDS: GABAPENTIN 800 MG TAB PO SCH (20:53)
[2020-08-27] MEDS: INSULIN ASPART 100 UNITS/ML 3 ML PEN SC SCH (20:54)
[2020-08-27] MEDS ORDERED: ENALAPRIL MALEATE 10 MG TAB PO SCH (21:00)
[2020-08-27] MEDS ORDERED: ATORVASTATIN 40 MG TAB PO SCH (21:00)
[2020-08-27] MEDS: buprenorphine HCL 8 MG SUBL SL SCH (21:00)
[2020-08-27] MEDS ORDERED: PIPERACILLIN/TAZOBACTAM 4.5 GM in DEXTROSE 5% 100 ML IV SCH (22:00)
[2020-08-27] MEDS: PIPERACILLIN/TAZOBACTAM 4.5 GM in DEXTROSE 5% 100 ML IV SCH (22:32)
[2020-08-28] MEDS ORDERED: VANCOMYCIN HCL 1,250 MG in SODIUM CHLORIDE 0.9% 250 ML IV SCH (06:00)
[2020-08-28] MEDS: PIPERACILLIN/TAZOBACTAM 4.5 GM in DEXTROSE 5% 100 ML IV SCH (07:06)
[2020-08-28] MEDS ORDERED: glipiZIDE 5 MG TAB PO SCH (07:30)
[2020-08-28] MEDS: METOPROLOL SUCC 25MG EXT REL TAB PO SCH (07:37)
[2020-08-28] MEDS: buprenorphine HCL 8 MG SUBL SL SCH (07:39)
[2020-08-28] MEDS: POTASSIUM CHLORIDE 10 MEQ TABCR PO SCH (07:39)
[2020-08-28] MEDS: GABAPENTIN 800 MG TAB PO SCH (07:42)
[2020-08-28 07:44] LABS: Hematocrit (blood only) 34.2 % (42-52); Hemoglobin 10.9 g/dL (14.0-18.0); Mean Corpuscular Hemoglobin 29.1 pg (25-34); Mean Corpuscular Hgb Conc 31.9 g/dL (32-36); Mean Corpuscular Volume 91.4 fL (80-100); Mean Platelet Volume 10.5 fL (7.4-10.4); Platelet Count 299 K/uL (130-400); RDW Coefficient of Variation 16.1 % (11.5-14.5); RDW Standard Deviation 54.3 fL (36.4-46.3); Red Blood Count 3.74 M/uL (4.7-6.1); White Blood Count 12.71 K/uL (4.8-10.8)
[2020-08-28 07:54] LABS: INR 1.6 (0.9-1.1); Prothrombin Time 15.5 Seconds (9.0-12.0)
[2020-08-28 08:11] LABS: BUN Creatinine Ratio 17.1 (10-20); Calcium 8.3 mg/dl (8.5-10.1); Creatinine Clr Calc Pharmacy 79.5 ml/min; Est GFR (Non-African American) 58.6 ml/min; Potassium 4.3 mmol/L (3.5-5.1)
[2020-08-28] MEDS ORDERED: CYANOCOBALAMIN 500 MCG TABLET (VITAMIN B-12) PO SCH (09:00)
[2020-08-28] MEDS ORDERED: ENALAPRIL MALEATE 10 MG TAB PO SCH (09:00)
[2020-08-28] MEDS ORDERED: FOLIC ACID 1 MG TAB PO SCH (09:00)
[2020-08-28] MEDS ORDERED: MULTIVITAMIN TAB PO SCH (09:00)
[2020-08-28] MEDS ORDERED: PANTOprazole 40 MG TAB PO SCH (09:00)
[2020-08-28] MEDS ORDERED: METOPROLOL SUCC 25MG EXT REL TAB PO SCH (09:00)
[2020-08-28] MEDS ORDERED: SPIRONOLACTONE 25 MG TAB PO SCH (09:00)
[2020-08-28] MEDS ORDERED: DOCUSATE SODIUM/SENNA 50/8.6MG TAB PO SCH (09:00)
[2020-08-28] MEDS: INSULIN ASPART 100 UNITS/ML 3 ML PEN SC SCH (09:21)
--- NOTE | 2020-08-28 10:22 | Surgery Progress Note ---
Date of Service F/U S/P I/D abdominal wall abscess, POD 1, pt feels much better, no fever, WBC 12,000, wound VAC on, August 28, 2020 Assessment & Plan (1) Cellulitis of abdominal wall: (2) Abdominal wall abscess: pt is a 59 year-old male who presents with abdominal wall infection, IMP: abdominal wall abscess and cellulitis, Plan, I recommend to do I/D abdominal wall abscess, possible exploratory laparotomy, bowel resection or stoma, D/W benefits, risks and alternatives of the surgery, the risks - infection, bleeding, recurrence, injury other organs, sepsis, pt understood, he and his agree with the surgery, I answered all questions,possible place wound VAC after surgery, pre-op antibiotic, 08/28/2020 10: 20 AM S/P I/D abdominal wall abscess, wound VAC on, doing fine, pt wants to go home today, the post-op care instruction was given, F/U [facility] wound care center on 09/01/2020 for dressing change, F/U id 2 weeks, Admission and Anticipated Discharge Date Admission Date: August 27, 2020 Supervising Physician Co-Signing Physician Notes I have seen and examined the patient and have discussed the case with the [place] above. I agree with the assessment and plan as stated. 59 yo M with superficial abdominal wall abscess that developed approximately 1 week ago. The infection was unsuccessfully treated with Augmentin and he came to the ER. Although he was recommended to stay he went home and came back again subsequently undergoing an incision and drainage in the OR this evening by Dr. Vance. Medicine has been consulted for medication management. Overall he is doing well postoperatively with minimal pain and discomfort. Wound VAC is in place and physical exam as above. He is in no acute distress and vitals are stable. Continue management as above. Hold glipizide Jardiance and Ozempic and utilize insulin during the hospitalization. Await surgical okay prior to restarting warfarin for atrial fibrillation. Thank you for this consultation. DO Gucci Review of Systems Constitutional: as per Subjective / HPI obesity Eyes: as per Subjective / HPI Ear, Nose, Mouth, Throat: as per Subjective / HPI Respiratory: as per Subjective / HPI Cardiovascular: as per Subjective / HPI Additional Comments: HTN, CHF, paroxysmal atrial fib Gastrointestinal: as per Subjective / HPI repair ventral hernia with mesh 2.5 years ago, I/D abdominal wall abscess one year ago, Genitourinary: + as per Subjective / HPI Musculoskeletal: as per Subjective / HPI back pain Integumentary: as per Subjective / HPI Neurologic: as per Subjective / HPI Psychiatric: as per Subjective / HPI Endocrine: as per Subjective / HPI Hematologic / Lymphatic: as per Subjective / HPI Physical Exam Constitutional: WD/WN, vitals as above well developed and well nourished Eyes: PERRL, conjunctivae normal, anicteric sclerae ENMT: external ear and nose normal, oropharynx normal Neck: trachea midline, no thyromegaly Respiratory: normal respiratory effort, lungs clear to auscultation normal respiratory effort Cardiovascular: RRR, no murmur, no edema Rate/Rhythm: regular rate and regular rhythm Gastrointestinal (Abdomen): normal bowel sounds, soft, nontender, no hepatosplenomegaly the wound VAC on, no redness, no tenderness, no distendBS + Musculoskeletal: no cyanosis or clubbing, extremities motor strength 5/5 Neurologic: awake Psychiatric: Orientation: alert and oriented x 3 Results & Data ([facility]) Vital Signs (Past 12 Hours) Vital Signs Temp Pulse Resp BP Pulse Ox 08/28/20 07:23 36.6 C 56 L 16 92/60 L 97 08/28/20 03:36 36.6 C 56 L 16 93/60 L 97 08/27/20 23:22 36.6 C 67 16 91/56 L 98
--- NOTE | 2020-08-28 13:22 | Hospitalist Progress Note ---
Date of Service August 28, 2020 Assessment & Plan (1) Abdominal wall abscess: -POD# 1 abdominal wall abscess I&D with wound VAC placement by Dr. Vance -Management as per general surgery Current cultures with Gram stain showing gram-positive cocci in clusters. No speciation or sensitivities are present prior to discharge. The patient does have Augmentin and doxycycline that he was given from the ER recently at discharge. He should continue both of these antibiotics to complete these courses as previously instructed. Further culture results can be reported through general surgery or primary care. (2) Diabetes mellitus, type II: -Hgb A1c 7.1 04/2020 -Hold oral agents and utilize NovoLog per protocol while hospitalized -resume home meds at [place] without changes (3) HTN (hypertension): slighly low BP this morning, possibly related to post operative setting. Home lisinopril and metoprolol were held per parameters. Repeat blood pressure check with PCP on follow-up in 1 week is recommended.Continue home blood pressure medicines (4) Chronic diastolic CHF (congestive heart failure): -Appears euvolemic, Okay to resume home torsemide as long as he is feeling well at home.Continue daily weights. (5) Paroxysmal atrial fibrillation: -Rate controlled on metoprolol -On Coumadin, INR 1.2 on 08/26 -Resume Coumadin at the discretion of general surgery (6) TINO (obstructive sleep apnea): -CPAP as per home settings (7) Chronic back pain: -On chronic Subutex (8) DVT prophylaxis: -TEDs/SCDs as per general surgery Thank you for this consultation. We will follow the patient with you during their hospital stay. You can reach a member of the [facility] Hospitalist Team 19/09 via the [facility] Hospitalist role in [place] Text. Natividad Duckworth, [facility] and Anticipated Discharge Date Admission Date: August 27, 2020 Subjective 59 yo man Sepsis with abdominal wall abscess status post incision and drainage. Currently has a wound VAC in place with plan to convert to wet-to-dry dressings and discharged home. Patient denies any pain in this area. He is up and walking around the room denying any lightheadedness or other issues. He is tolerating p.o. He is afebrile and oxygenating well on room air. Review of Systems Review of Systems: All systems reviewed & are unremarkable except as noted in Subjective Physical Exam Physical Exam: CONSTITUTIONAL: WNWD, vitals as above, generally well- appearing EYES: normal conjunctivae, no scleral icterus ENT: external ear and nose normal, MMM RESPIRATORY: clear to auscultation bilaterally, no crackles, rales or wheezes, normal respiratory effort CARDIOVASCULAR: regular rate and rhythm, S1 and 2 heard without murmurs, gallops or rubs, no JVD, no peripheral edema GASTROINTESTINAL: soft, nontender, nondistended, protuberant, no guarding. Wound vac in place (baseball-sized wound) with resolving erythema surrounding wound. No further areas of fluctuance or tenderness appreciated. MUSCULOSKELETAL: strength 5/5 throughout, head is normocephalic and atraumatic, ambulatory SKIN: warm and dry, wound as above. NEUROLOGIC: CN 2-12 grossly intact, no sensory deficit, normal cognition, normal speech, no tremor. No gross focal deficits. PSYCHIATRIC: alert cooperative and oriented to person, place and time. Results & Data Results & Data ([facility]) Vital Signs (Past 12 Hours) Vital Signs Temp Pulse Resp BP Pulse Ox 08/28/20 11:43 36.6 C 56 L 16 92/60 L 97 08/28/20 07:23 36.6 C 56 L 16 92/60 L 97 08/28/20 03:36 36.6 C 56 L 16 93/60 L 97 Laboratory Results Short CBC 08/27/20 08/28/20 Range/Units 18:38 06:48 WBC 14.74 H 12.71 H (4.8-10.8) K/uL Hgb 11.7 L 10.9 L (14.0-18.0) g/dL Hct 35.7 L 34.2 L (42-52) % Plt Count 320 299 (130-400) K/uL BMP 08/27/20 08/27/20 08/28/20 18:38 18:38 06:48 Sodium 138 137 Potassium 4.4 4.3 Chloride 106 103 Carbon Dioxide 32 28 BUN 18 23 H Creatinine 1.09 1.10 1.32 Glucose 132 H 131 H Calcium 8.8 8.3 L Liver Function 08/27/20 Range/Units 18:38 Total Bilirubin 1.3 H (0.2-1) mg/dl AST 12 L (15-37) U/L ALT 20 (12-78) U/L Alkaline Phosphatase 57 (45-117) U/L Albumin 2.8 L (3.4-5.0) gm/dl Medications Administered Current Inpatient Medications Atorvastatin Calcium (Atorvastatin 40 Mg Tab) 40 mg PO QPM HUNTER Stop: 09/26/20 20:59 Last Admin: 08/27/20 20:53 Dose: 40 mg Documented by: Buprenorphine HCl (Buprenorphine Hcl 8 Mg Subl) 8 mg SL TID HUNTER Stop: 09/26/20 20:59 Last Admin: 08/28/20 07:39 Dose: 8 mg Documented by: Dextrose (Dextrose 50% 50 Ml Syringe) 25 - 50 ml IV UD PRN; Protocol PRN Reason: Hypoglycemia Protocol Stop: 09/26/20 19:41 Enalapril Maleate (Enalapril Maleate 10 Mg Tab) 20 mg PO QAM HUNTER Stop: 09/27/20 08:59 Last Admin: 08/28/20 07:37 Dose: Not Given Documented by: Enalapril Maleate (Enalapril Maleate 10 Mg Tab) 10 mg PO PM HUNTER Stop: 09/26/20 20:59 Last Admin: 08/27/20 20:54 Dose: 10 mg Documented by: Gabapentin (Gabapentin 800 Mg Tab) 800 mg PO BID HUNTER Stop: 09/26/20 20:59 Last Admin: 08/28/20 07:42 Dose: 800 mg Documented by: Glucagon (Glucagon For Inj 1 Mg Vial) 1 mg SQ UD PRN; Protocol PRN Reason: Hypoglycemia Protocol Stop: 09/26/20 19:41 Glucose (Glucose 10 Tabs/Tube) 4 - 8 tabs PO UD PRN; Protocol PRN Reason: Hypoglycemia Protocol Stop: 09/26/20 19:41 Glucose (Glucose 40% Gel 15 Gm Tube) 15 - 30 gm PO UD PRN; Protocol PRN Reason: Hypoglycemia Protocol Stop: 09/26/20 19:41 Piperacillin Sod/Tazobactam (Sod 4.5 gm/ Dextrose) 120 mls @ 30 mls/hr IV Q8H HUNTER; Protocol Stop: 09/06/20 21:59 Last Infusion: 08/28/20 11:42 Dose: Infused Documented by: Insulin Aspart (Insulin Aspart 100 Units/Ml 3 Ml Pen) 0 units SC ACHS HUNTER Stop: 09/26/20 20:59 Last Admin: 08/28/20 09:21 Dose: 4 units Documented by: Loratadine (Loratadine 10 Mg Tab) 10 mg PO DAILY PRN PRN Reason: allergies Stop: 09/26/20 18:06 Metoprolol Succinate (Metoprolol Succ 25mg Ext Rel Tab) 75 mg PO BID HUNTER Stop: 09/26/20 20:59 Last Admin: 08/28/20 07:37 Dose: Not Given Documented by: Miscellaneous (Carbohydrates For Hypoglycemia ) 15 - 30 gm PO UD PRN PRN Reason: Hypoglycemia Protocol Stop: 09/26/20 19:41 Miscellaneous Information (Vancomycin Consult Active) 1 ea N/A UD PRN PRN Reason: Consult Stop: 09/26/20 17:34 Miscellaneous Information (Piperacill/Tazobac Consult Active) 1 ea N/A UD PRN PRN Reason: Consult Stop: 09/26/20 18:06 Multivitamins (Multivitamin Tab) 1 tab PO DAILY HUNTER Stop: 09/27/20 08:59 Last Admin: 08/28/20 07:41 Dose: 1 tab Documented by: Ondansetron HCl (Ondansetron 4 Mg Od Tab) 4 mg PO Q6H PRN PRN Reason: Nausea Oxycodone/Acetaminophen (Oxycodone/Acetaminophen 5mg/325mg Tab) 1 tab PO Q4H PRN PRN Reason: Pain Stop: 09/10/20 18:06 Polyethylene Glycol (Polyethylene (Miralax) 17 Gm Pack) 17 gm PO BID PRN PRN Reason: Constipation Stop: 09/26/20 18:06 Potassium Chloride (Potassium Chloride 10 Meq Tabcr) 10 meq PO BID HUNTER Stop: 09/26/20 20:59 Last Admin: 08/28/20 07:39 Dose: 10 meq Documented by: Spironolactone (Spironolactone 25 Mg Tab) 25 mg PO DAILY [facility] Stop: 09/27/20 08:59 Torsemide (Torsemide 10 Mg Tab) 10 mg PO BID17 [facility] Stop: 09/26/20 19:29 (1) Diabetes mellitus, type II Diabetes mellitus rn long term care insulin use: without rn long term care use Diabetes mellitus complication status: with skin complications Diabetes mellitus complication detail: with other skin complication Qualified Code(s): E11.628 - Type 2 diabetes mellitus with other skin complications
--- NOTE | 2020-08-29 03:03 | Discharge Summary (DS) ---
DATE OF ADMISSION: 08/27/2020 DATE OF DISCHARGE: 08/28/2020 ADMITTING DIAGNOSIS: Abdominal wall abscess. DISCHARGE DIAGNOSIS: Abdominal wall abscess. PROCEDURE: Incision and drainage of abdominal wall abscess with a wound VAC placement. SURGEON: Nell Vance MD. HOSPITAL COURSE: This is a 59-year-old gentleman who developed abdominal wall abscess. We took the patient to the OR, we did incision and drainage of abdominal wall abscess. The patient tolerated the procedure well. After the procedure, the patient was transferred to regular floor. Patient doing f ine, stayed in the hospital overnight. Patient denies any incision pain, or fever and less redness. The patient was feeling much better. The patient wanted to go home today. PHYSICAL EXAMINATION: VITAL SIGNS: Temperature is 36.6, respiratory rate 16, heart rate 56, blood pressure 92/60, O2 satur ation 97% on room air. GENERAL: The patient is alert, awake, oriented x3. HEENT: Within normal limitation. NEUROLOGIC: Exam is intact. NECK: No JVD. CHEST: Bilateral lung sounds clear. HEART: Normal S1 and S2. No murmur. ABDOMEN: Soft. The wound VAC is on. No significant redness and no tenderness. Bowel sounds positi ve, nondistended. EXTREMITIES: No edema. Also reveals a wound culture reported as gram-positive cocci. The patient had Augmentin at home and patient will continue to take Augmentin at home and also I prescribed Percocet 5/325 one p.o. every 6 hours p.r.n. for pain. The patient will follow up with [facility] wound care cent er on 09/01/2020. The patient will follow up with me in 2 weeks and the patient understands. I also gave the patient postop care instruction. The patient understands. Also the patient's white count h as come down to low 12,000. Job ID: [id number]
== END 2020-08-28 13:46 | disposition home health service (06) | DRG 580 ==
LOC: INTOOBSV 14:32 → 3W 14:32

== ENCOUNTER 2023-11-04 04:36 | Inpatient (IN) ==
--- OUTSIDE RECORDS SUMMARY | 2023-11-04 04:42 | External Medical Summary | Summary of Care ---
Author Name Unknown Organization [facility] Address [address] [place] [address] Phone [phone] Care Team Providers Care Chief Projectionist Name Role Phone Mariel Mckeon MD Primary Care Provide r Reason for Visit * Reason Comments Dosage Adjustment In Person (Anticoag Cl inic) Encounter Details Date Type Department Care Team (Latest Contact Info) Description 11/02/2023 1:40 PM EDT Anticoagulation Pharmacy, [address] [place] [address] [place] [address] Anticoagulation management encounter*; PAF (paroxysmal atrial fibrillation) ([facility]) Allergies Active Allergy Reactions Criticality Noted Date Comments Adhesive Tape 09/20/2020 Other reaction(s): Rash Diflunisal Nausea/vomiting 02/05/2008 Apixaban Flushing 05/26/2021 Flushing on his backside - looks like a sun tom Iodinated Contrast Media 05/26/2021 Skin peels like a sun burn Rivaroxaban High 09/20/2020 Other reaction(s): Rash documented as of this encounter (statuses as of 11/02/2023) Medications Medication Sig Dispensed Refills Start Date End Date Status LORATADINE 10 MG PO TABSIndications:Nain rgic rhinitis One pill by mouth once a day as needed for allergies 30 Tab 5 4 Active Additional Information Patient taking differently: 10 mgOralDAILY PRN, Rhinitis, Indications: as needed for allergies, Reported on 04/13/2022 buprenorphine HCl (SUBUTEX) 8 MG Sublingual tabletIndications:fo r pain Take 1 Tablet by mouth in the morning and 1 Tablet at noon and 1 Tablet before bedtime. 0 Active Multivitamin Adult Oral TabletIndications:ov erall TransGenRx Take by mouth 1 Tablet daily . Active OneTouch Ultra Blue In Vitro Strip (Glucose Blood)Indications:Ty pe 2 diabetes mellitus with hemoglobin A1c goal of less than 7.0% (HCC) Test once daily Dx E11.9 100 Strip 11 0 Active OneTouch UltraSoft LancetsIndications:T ype 2 diabetes mellitus with hemoglobin A1c goal of less than 7.0% (HCC) Test once daily Dx E11.9 100 Each 11 0 Active BiPAPIndications:sle ep every night at bedtime . Active guaiFENesin ER 600 MG Oral Tablet Extended Release 12 Hour Take 1 Tablet by mouth in the morning and 1 Tablet before bedtime. Active Digestive Advantage Oral CapsuleIndications:d Fanitics Take by mouth 1 Capsule daily . Active Polyethylene Glycol 3350 17 GM/SCOOP Oral Powder (Miralax)Indications :for constipation Take 17 g by mouth 3 times a day as needed for Constipation. 578 g 5 3 Active Triamcinolone Acetonide 0.1 % External Cream (Aristocort)Indicati ons:Allergic contact dermatitis due to other agents,Poison jose dermatitis Apply topically to affected area 2 times a day. To affected area. 60 g 3 Active Triamcinolone Acetonide 0.1 % External Cream (Aristocort)Indicati ons:Venous stasis dermatitis of both lower extremities Apply topically to affected area 2 times a day. To affected area. 60 g 5 3 Active Ondansetron HCl 4 MG Oral Tablet (Zofran) Take 1 Tablet by mouth every 8 hours as needed for Nausea. 20 Tablet 3 Active Nystatin-Triamcinolo ne 886876-2.1 UNIT/GM-% External Cream (Mycolog)Indications :Dermatitis APPLY TOPICALLY TO AFFECTED AREA TWICE DAILY 30 g 3 Active Pantoprazole Sodium 40 MG Oral Tablet Delayed Release (Protonix)Indication s:Severe obstructive sleep apnea Take 1 Tablet by mouth in the morning. 90 Tablet 1 3 Active Finasteride 5 MG Oral Tablet (Proscar) Take 1 Tablet by mouth in the morning. 90 Tablet 3 4 Active Albuterol Sulfate HFA 108 (90 Base) MCG/ACT Inhalation Aerosol Solution INHALE 2 PUFFS BY MOUTH EVERY 4 HOURS NEEDED FOR WHEEZING. 18 g 5 4 04/11/19 25 Active Lidocaine 5 % External OintmentIndications: Chronic bilateral low back pain without sciatica Apply to back daily as needed for pain 106.32 g 1 4 Active Tamsulosin HCl 0.4 MG Oral Capsule (Flomax) Take 1 Capsule by mouth in the morning and 1 Capsule before bedtime. 180 Capsule 3 4 Active Warfarin Sodium 5 MG Oral Tablet (Coumadin)Indication s:PAF (paroxysmal atrial fibrillation) ([facility]),Anticoagulatio n management encounter,FPC current use of anticoagulant therapy,Atrial flutter, unspecified type ([facility]) TAKE 1 AND 1/2 TABLETS (7.5MG) BY MOUTH DAILY OR DIRECTED BY ANTICOAGULATION CLINIC 140 Tablet 1 4 07/05/19 25 Active Narcan 4 MG/0.1ML Nasal LiquidIndications:us e if suspected overdose occurs As needed for respiratory depression 1 Each 4 Active Sennosides-Docusate Sodium 8.6-50 MG Oral Tablet (Senokot-S)Indicatio ns:Constipation, unspecified constipation type Take 1 Tablet by mouth in the morning and 1 Tablet before bedtime. 60 Tablet 1 4 Active Gabapentin 800 MG Oral Tablet (Neurontin)Indicatio ns:Chronic back pain greater than 3 months duration TAKE ONE TABLET BY MOUTH TWICE DAILY 60 Tablet 5 4 Active glipiZIDE 10 MG Oral Tablet (Glucotrol)Indicatio ns:Type 2 diabetes mellitus with hemoglobin A1c goal of less than 7.0% ([facility]) TAKE 1 AND 1/2 TABLETS BY MOUTH IN THE MORNING AND 1 AND 1/2 TABLETS IN THE EVENING 270 Tablet 1 4 Active Empagliflozin 25 MG Oral Tablet (Jardiance)Indicatio ns:Type 2 diabetes mellitus with hemoglobin A1c goal of less than 7.0% (HCC) TAKE ONE TABLET BY MOUTH IN THE MORNING 90 Tablet 1 4 Active Atorvastatin Calcium 40 MG Oral Tablet (Lipitor)Indications :Hyperlipidemia with target LDL less than 100 TAKE ONE TABLET BY MOUTH AT BEDTIME 90 Tablet 1 4 Active hydrOXYzine HCl 25 MG Oral TabletIndications:Pr uritus Take 1 Tablet by mouth every 6 hours as needed for Itching. 40 Tablet 2 4 Active FreeStyle Abi 2 SensorIndications:bl ood sugar monitoring Use as directed. Use as directed 9 Each 1 4 Active Torsemide 20 MG Oral Tablet (Demadex)Indications :Generalized edema TAKE 1/2 TABLET BY MOUTH 2 TIMES A DAY 90 Tablet 1 4 09/25/19 25 Active Metoprolol Succinate ER 50 MG Oral Tablet Extended Release 24 Hour (toPROL XL)Indications:HTN, goal below 140/90,Atrial fibrillation, unspecified type (HCC) Take 1 tablet by mouth twice a day 180 Tablet 1 4 Active metFORMIN HCl ER 500 MG Oral Tablet Extended Release 24 Hour (Glucophage XR)Indications:Type 2 diabetes mellitus with hemoglobin A1c goal of less than 7.0% (HCC) TAKE 2 TABLETS BY MOUTH TWICE DAILY WITH MORNING AND EVENING MEALS 360 Tablet 1 4 09/25/19 25 Active Pramipexole Dihydrochloride 0.25 MG Oral Tablet (Mirapex)Indications :Restless legs syndrome TAKE 1 TABLET BY MOUTH AT BEDTIME FOR RESTLESS LEGS. 90 Tablet 1 4 09/25/19 25 Active Spironolactone 25 MG Oral Tablet (Aldactone)Indicatio ns:Chronic diastolic (congestive) heart failure (HCC),HTN, goal below 140/90 Take 1 Tablet by mouth in the morning. 90 Tablet 3 4 Active Ozempic (1 MG/DOSE) 4 MG/3ML Subcutaneous Solution Pen-injector (Semaglutide (1 MG/DOSE))Indications :Type 2 diabetes mellitus with hemoglobin A1c goal of less than 7.0% (HCC) Inject 1 mg under the skin once a week. 3 mL 1 4 Active Hospital, Clinic, or Other Facility Administered Medication Ordered Dose Route Frequency Start Date End Date Status naloxone (Narcan Nasal) 4 MG/0.1ML nasal spray 4 mgIndications:Typical atrial flutter (HCC),PAF (paroxysmal atrial fibrillation) (HCC),Obesity hypoventilation syndrome (HCC),Chronic diastolic (congestive) heart failure (HCC),Atherosclerosis of aorta (HCC) 4 mg NA PRN 02/02/2023 Active documented as of this encounter (statuses as of 11/02/2023) Active Problems Problem Noted Date Diagnosed Date Persistent atrial fibrillation 04/21/2023 BMI 35.0-35.9,adult 02/14/2023 Overview: 239 BPH with obstruction/lower urinary tract symptom s 09/13/2022 Dyslipidemia, goal LDL below 70 04/18/2022 Atherosclerosis of aorta 04/12/2021 Type 2 diabetes mellitus wit h stage 2 chronic kidney disease, without long-term current use of insulin 02/09/2021 Hypertensive heart and kidne y disease with chronic diastolic congestive heart failure and stage 2 chronic kidney disease 10/21/2020 CKD (chronic kidney disease), stage II Overview: EGFR 70.8 Type 2 diabetes mellitus with autonomic neuropat hy 05/19/2020 Chronic diastolic (congestive) heart failure PAF (paroxysmal atrial fibrillation) 10/08/2018 Typical atrial flutter 07/17/2018 Obesity hypoventilation syndrome 10/10/2014 Essential hypertension with goal blood pressure less than 130/80 2011 Overview: Per HTN Protocol #27. Erectile dysfunction 06/15/2011 Chronic back pain greater than 3 months duration 03/28/2011 Diabetic polyneuropathy asso ciated with type 2 diabetes mellitus 10/27/2009 Type 2 diabetes mellitus wit h hemoglobin A1c goal of less than 7.0% 12/11/2008 Overview: Modified per Diabetes protocol #14. ICD-10 update of inactive term Diverticulosis of colon 09/04/2005 Severe obstructive sleep apnea 11/03/2004 DM type 2 causing neurological disease documented as of this encounter (statuses as of 11/02/2023) Resolved Problems Problem Noted Date Diagnosed Date Resolved Date Food insecurity 02/06/2023 07/12/2023 Overview: Per [facility] Protocol Abdominal wall abscess 08/27/202002/15 Overview: [facility] Opioid dependence, uncomplicated 05/19/2020 06/07/2021 Sacroiliitis, not elsewhere classified 07/17/2018 05/16/2019 Opioid dependence, uncomplicated 07/17/2018 07/17/2019 Body mass index (BMI) of 40. 0 to 44.9 in adult 02/05/2018 04/10/2018 Overview: Per Obesity protocol #1 Atrial flutter 08/24/2017 09/06/2018 Overview: ER MEDICATION USE AGREEMENT 04/07/201410/2017 Overview: hydrocodone Hypokalemia 03/06/2014 10/16/2017 Peripheral neuropathy 06/22/20112017 Body mass index 45.0-49.9, adult 08/11/2010 02/09/2018 Overview: Per Obesity protocol #1 HTN, goal below 130/80 04/10/201010/19 Overview: Per HTN Protocol #27. Asthma with severity to be determined 08/20/2009 04/21/2011 Overview: Per Asthma Taxonomy ICD-10 update of inactive term Obesity, morbid (more than 1 00 lbs over ideal weight or BMI > 40) 05/26/2009 08/11/2010 Overview: Per Obesity Taxonomy ICD-10 update of inactive term DM type 2, not at goal 01/08/200812/11 Overview: Modified per Diabetes protocol #14. Esophagitis 12/13/2005 10/14/2014 Overview: ICD-10 update of inactive term OSTEOARTHRO NOS-OTH SITE 12/13/2005 Chalazion 10/25/2005 07/21/2011 Overview: Dr Hidalgo right upper lid, hot tea bags and Maxitrol ADVANCE DIRECTIVE INFORMATION 07/19/2005 06/22/2019 Overview: No, Advance Directive brochure given to patient at prior appointment. Morbid obesity, BMI not known 11/03/2004 05/26/2009 Overview: Per Obesity Taxonomy INTRINSIC ASTHMA UNSPEC 11/03/200407/29 Chronic sinusitis 11/03/2004 08/18/2011 HYPERTENSION NOS 11/03/2004 01/20/2009 Overview: Modified per HTN protocol #16. Urinary frequency 08/15/2001 08/18/2011 BACKACHE NOS 08/15/2001 08/18/2011 Major depressive disorder 07/17/2000 Overview: ICD-10 update of inactive term Sprain of neck 06/28/2000 07/21/2011 Cervicalgia 06/28/2000 07/21/2011 DISC DISPLACEMENT NOS 2014 Hypogonadism male 07/21/2011 Dyslipidemia 04/25/2022 Overview: ICD-10 update of inactive term Narcotic abuse in remission 04/26/2022 documented as of this encounter (statuses as of 11/02/2023) Immunizations Name Administration Dates Next Due COVID-19 mRNA, LNP-s, No Pre serve, 2-Dose Series (InhibOx) 11/03/2020,10/13/2020 COVID-19, LNP-s, No Preserve , Dago-sucrose, Ages 12+ (Pfizer) 05/18/2021 COVID-19, MRNA-LNP, 23-24, P F, 30 MCG/0.3 mL, 12 YRS AND ABOVE, IM (PFIZER-Comirnaty) 12/21/2022 H1N1 2009 Influenza, IM 02/25/2009 Hepatitis B, 20+ yrs 04/06/2018,08/14/2014,05/30 Pneumococcal Conjugate Vacci ne, 20-valent ([id number]) 05/17/2022 Pneumococcal Polysaccharide PPV23 (Pneumovax) 02/12/2009,09/11/2008(Deferred: Patient Refused) Seasonal Influenza, PF, 6 M & above, IM , (FluLaval or Fluzone) 12/21/2022,02/04/2022,04/12/2021,12/06 Seasonal Influenza, Trivalen t, (IIV3), with Preserv, (Fluzone) 12/19/2016,12/09/2010,12/29/2009,02/12 TD - Tetanus/Diptheria (ADULT) 07/28/2002 TDAP, Age 7 and older, IM (Adacel) 08/26/2010 documented as of this encounter Social History Tobacco Use Types Packs/Day Years Used Date Smoking Tobacco: Former Cigarettes 1 15 0 10/24/1974 - 10/24/1989 Smokeless Tobacco: Former Comments:quit age 24 or so Alcohol Use Standard Drinks/Week Comments Never 0 (1 standard drink = 0.6 oz pur e alcohol) AUDIT-C Answer Date Recorded Frequency of Alcohol Consumption Never 02/10/2019 Average Number of Drinks Not on file 019 Frequency of Binge Drinking Not on file 01/27 PHQ-2 Answer Date Recorded PHQ Adult Total Score 0 07/06/2023 Hunger Vital Sign Answer Date Recorded Within the past 12 months, y ou worried that your food would run out before you got the money to buy more. Never true 07/06/19 24 Within the past 12 months, t he food you bought just didn't last and you didn't have money to get more. Never true 07/06/2023 Childcare Answer Date Recorded Do you feel overwhelmed with taking care of a child, family member or friend? No 07/06/2023 Does your family need help f inding childcare? (Household - for ages 0-17 years) Not on file 07/06/2023 Clothing Answer Date Recorded Have you been unable to get clothing when it was really needed? No 07/06/2023 Is your family able to get c lothes or diapers when needed? (Household - for ages 0-17 years) Not on file 07/06/2023 Personal Safety Answer Date Recorded Do you feel unsafe or have concerns for your saf ety? No 07/06/2023 Do you have concerns for you r family's safety? (Household - for ages 0-17 years) Not on file 07/06/2023 Utilities Answer Date Recorded Do you have trouble paying y our heating, water, or electric bill? No 07/06/2023 Is your family able to pay t he heat, water, or electric bill? (Household - for ages 0-17 years) Not on file 07/06/2023 Does your family have access to good internet? (Household - for ages 0-17 years) Not on file 07/06/2023 Employment Status Answer Date Recorded Are you unemployed or without regular income? No 07/06/2023 Does the household have a re gular source of income? (Household - for ages 0-17 years) Not on file 07/06/2023 Social Connections Answer Date Recorded How often do you feel lonely or isolated from th ose around you? Never 07/06/2023 Financial Resource Strain Answer Date R ecorded Do you have any trouble payi ng for your medications, or do you think you might in the future? No 07/06/2023 Does your family have troubl e paying for medicine? (Household - for ages 0-17 years) Not on file 07/06/2023 Transportation Needs Answer Date Record ed READ ONLY Do you have troubl e getting a ride to medical visits or work? Never True 07/06/2023 Does your family have a hard time getting a ride to doctors visits? (Household - for ages 0-17 years) Not on file 07/06/2023 Has lack of transportation k ept you from medical appointments, meetings, work, or from getting things needed for daily living? Check all that apply. (Adult - for ages 18 years and over) Not on file 07/06/2023 Do you (or your family) have trouble finding or paying for a ride (transportation)? (Household - for ages 0-17 years) Not on file 07/06/2023 Housing Stability Answer Date Recorded Do you currently live in a s helter or have no steady place to sleep at night? No 07/06/2023 READ ONLY Do you think you a re at risk of becoming homeless? No 07/06/2023 Does your family worry about paying for your home or becoming homeless? (Household - for ages 0-17 years) Not on file 0 07/06/2023 Are you homeless or worried that you might be in the future? (Adult - for ages 18 years and over) Not on file Are you (or your family) candido eless or worried that you might be in the future? (Household - for ages 0-17 years) Not on file Food Insecurity Answer Date Recorded Do you need food for this week? No 07/06/2023 Are you able to get enough f ood for your family? (Household - for ages 0-17 years) Not on file 07/06/2023 Does your family need food t his week? (Household - for ages 0-17 years) Not on file 07/06/2023 Do you always have enough fo od for your family? (Household - for ages 0-17 years) Not on file 07/06/2023 Sex and Gender Information Value Date Recorded Sex Assigned at Not on file Gender Identity Not on file Sexual Orientation Not on file Job Start Date Occupation Industry Not on file Not on file Not on file documented as of this encounter Progress Notes * Saray Garcia, [facility] - 11/02/2023 1:30 PM EDT Medication Therapy Disease Management - Anticoagulation Patient: Rakesh Sanders Tramaine | : 1960 Subjective Contacts Contact Date/Time Type Contact Phone/Fax 10/26/2023 05:10 AM EDT Vendor (Outgoing) Rakesh Redd [phone] 10/30/2023 05:14 AM EDT Vendor (Outgoing) Rakesh Redd [phone] 11/01/2023 05:10 AM EDT Vendor (Outgoing) Rakesh Redd [phone] Patient-Reported Symptoms: Patient Findings Negatives: Signs/symptoms of thrombosis, Signs/symptoms of bleeding, Change in health, Change in alcohol use, Change in activity, Upcoming invasive procedure, Missed doses, Extra doses, Change in medications, Change in diet/appetite, Bruising Objective Current Warfarin Dose As of 11/02/2023 Warfarin maintenance plan: 5 mg (5 mg x 1) every Mon, Fri; 7.5 mg (5 mg x 1.5) all other days INR Result As of 11/02/2023 INR goal: 2.0-3.0 INR used for dosin.0 (11/02/2023) Assessment & Plan Warfarin Plan As of 11/02/2023 Full warfarin instructions: 5 mg every Mon, Fri; 7.5 mg all other days No change documented: Saray Garcia RPh Next INR check: 12/07/2023 Repeat PT/INR in 5 week(s) Weekly dose: not changed Additional Dosing Information: Description Takes at midnight I spent a total of 10-19 minutes (exact time 10 mins) on the date of service in preparation, delivery, and documentation of the care provided to Rakesh Redd excluding any time spent in the performance of separately billed services or time spent by another provider/QHP. Saray Garcia RPh Clinical Pharmacist 11/02/2023, 1:30 PM documented in this encounter Plan of Treatment Upcoming Encounters Date Type Department Care Team (Late st Contact Info) Description 11/13/2023 2:45 PM EDT NeuroDiagnostic Study Neurophysiology [facility] [address] [facility] [place] [address] Dewayne Hassan MD [address] [facility] [place] [address] 11/21/2023 11:00 AM EDT Office Visit Hepatology, [facility] [address] [facility] [place] [address] Martina Del Toro MD [address] [place] [address] 12/07/2023 2:30 PM EDT Anticoagulation Pharmacy, [address] [place] [address] [place] [address] 12/07/2023 2:40 PM EDT Pharmacy Pharmacy, [address] [place] [address] [place] [address] 03/20/2024 11:30 AM EST Office Visit Urology, [facility] [address] [facility] [place] [address] Brett Fontenot MD [address] [facility] [place] [phone] 04/08/2024 1:30 PM EST Office Visit Cardiology, [facility] [address] [facility] [place] [address] Day Gonsales PA-C [address] [facility] [place] [address] Scheduled Procedures Name Priority Associated Diagnoses Date/Ti me COLONOSCOPY FLEXIBLE PROXIMAL DIAGNOSTIC Recall History of colon polyps Health Maintenance Due Date Last Done Comments Sigmoidoscopy 2005 Zoster Vaccines (1 of 2) 2010 DTap/Tdap Vaccines (2 - Td or Tdap) 08/26/2020 08/26/2010, 07/28/2002 Fecal Occult Blood Test 10/28/2020 10/29/2019 Cologuard 06/12/2022 06/13/2019, 05/28, 06/08/2019 B-12 05/18/2023 05/17/2022, 10/28, 07/17/2019, Additional history exists Diabetic Foot Exam 05/18/2023 05/17/2022, 0 11/09/2020, 10/25/2018, Additional history exists HbA1c 10/20/2023 04/21/2023, 08/28, 05/17/2022, Additional history exists Influenza Vaccine (FLU shot) (#1) 2023 12/21/2022, 02/04/2022, 04/12/2021, Additional history exists Albumin/Creatinine Ratio 04/21/2024 024, 05/17/2022, 04/12/2021, Additional history exists Diabetic Eye Exam 04/27/2024 04/28/2023, , 04/07/2020, Additional history exists Depression Screening 07/05/2024 07/06/2023 GFR 09/25/2024 09/26/2023, 03/31, 02/03/2023, Additional history exists Colonoscopy 04/21/2027 04/21/2022, 04/21/2022 Colorectal Cancer Screening 04/21/2027 Hepatitis B Vaccine Completed 04/06/2018, 08/14/2014, 05/30/2014 RETIRED - COLONOSCOPY-EVERY 5 YRS AGES 18-100 Discontinued 04/21/2022, 04/21/2022 Pneumococcal Vaccine: Pediatrics (0 to 5 Years) and At-Risk Patients (6 to 64 Years) Completed 05/17/2022, 02/12/2009 COVID-19 Vaccine Completed 12/21/2022, , 11/03/2020, Additional history exists HPV (Gardasil) Vaccine Aged Out No lo nger eligible based on patient's age to complete this topic MENINGOCOCCAL (MENACTRA/MENVEO) Aged Out No longer eligible based on patient's age to complete this topic documented as of this encounter Medical Devices Not on filedocumented as of this encounter Procedures Procedure Name Priority Date/Time Associated Diagnosis Comments INR FINGERSTICK, POINT OF CARE STAT 11/02/2023 1:34 PM EDT PAF (paroxysmal atrial fibrillation) (HCC) Anticoagulation management encounter documented in this encounter Results * INR FINGERSTICK, POINT OF CARE (11/02/2023 1:34 PM EDT) Fingerstick INR 3.0 INR 1:57 PM EDT [facility] Oxxy-00 Blood 11/02/2023 1:34 PM EDT 11/02/2023 1:57 PM EDT Narrative [facility] 55-00 - 11/02/2023 1:57 PM EDT Therapeutic ranges for non-operative patients: Prophylaxsis/treatment of DVT: (Range:2.0-3.0) Treatment of pulmonary embolism:(Range:2.0-3.0) Prevention of systemic embolism from: -tissue heart valves -acute myocardial infarction -valvular heart disease -atrial fibrillation (Range: 2.0-3.0) Mechanical prosthetic valves: (Range: 2.5-3.5) Saray Garner Jorgekiya [facility] LAB POINT OF CARE TEST DOCKED DEVICE UNSOLICITED RESULTS [facility] [address] [place] [address] [place] [id number] documented in this encounter Visit Diagnoses Diagnosis Anticoagulation management encounter- Primary Encounter for therapeutic drug monitoring PAF (paroxysmal atrial fibrillation) (HCC) Atrial fibrillation documented in this encounter Care Teams Chief Projectionist Relationship Specialty Start Date End Date Mariel Mckeon MD [address] [place] [address] [place] [address] PCP - General Family Medicine 03/22/23 documented as of this encounter"
--- OUTSIDE RECORDS SUMMARY | 2023-11-04 04:42 | External Medical Summary ---
Author Name Unknown Address Unknown Organization : Laboratory Report Ordering Provider Test Date Status STEFFANIE BARAJAS 11/02/2023 13:34:49 Final Therapeutic ranges for non-o perative patients:
Prophylaxsis/treatment of DVT: (Range:2.0-3.0)
Treatment of pulmonary embolism:(Range:2.0-3.0)
Prevention of systemic embolism from:
-tissue heart valves
-acute myocardial infarction
-valvular heart disease
-atrial fibrillation
(Range: 2.0-3.0)
Mechanical prosthetic valves: (Range: 2.5-3.5) Observation Date Value Abnormality Reference (Units ) Status INR in Capillary blood by Coagulation assay 11/02/2023 13:34:49 3.0 (INR) Final Performing Location
--- OUTSIDE RECORDS SUMMARY | 2023-11-04 04:43 | External Medical Summary | Summary of Care ---
Author Name Unknown Organization [facility] Address [address] [place] [address] Phone [phone] Care Team Providers Care Cloth Stretcher Name Role Phone Mariel Mckeon MD Primary Care Provide r Reason for Visit * Reason Onset Date Comments Advice 10/16/2023 Encounter Details Date Type Department Care Team (Late st Contact Info) Description 10/16/2023 Telephone Family Medicine [address] [address] Mariel Mckeon MD [address] [place] [address] [place] [address] Advice Allergies Active Allergy Reactions Criticality Noted Date Comments Adhesive Tape 09/20/2020 Other reaction(s): Rash Diflunisal Nausea/vomiting 02/05/2008 Apixaban Flushing 05/26/2021 Flushing on his backside - looks like a sun tom Iodinated Contrast Media 05/26/2021 Skin peels like a sun burn Rivaroxaban High 09/20/2020 Other reaction(s): Rash documented as of this encounter (statuses as of 10/18/2023) Medications Medication Sig Dispensed Refills Start Date [...] 0 Active Multivitamin Adult Oral TabletIndications:ov erall [employer] Take by mouth 1 Tablet daily . [...] before bedtime. Active Digestive Advantage Oral CapsuleIndications:d [email or web address] Take by mouth 1 Capsule daily . [...] Nausea. 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 3 mL 1 4 Active hydrOXYzine HCl 25 MG [...] by mouth twice a day 180 Tablet 4 Active metFORMIN HCl ER 500 MG Oral Tablet Extended Release 24 Hour (Glucophage XR)Indications:Type 2 diabetes mellitus with hemoglobin A1c goal of less than 7.0% (HCC) TAKE 2 TABLETS BY MOUTH TWICE DAILY WITH MORNING AND EVENING MEALS 360 Tablet 4 09/25/19 25 Active Pramipexole Dihydrochloride 0.25 MG Oral Tablet (Mirapex)Indications :Restless legs syndrome TAKE 1 TABLET BY MOUTH AT BEDTIME FOR RESTLESS LEGS. 90 Tablet 4 09/25/19 25 Active Spironolactone 25 MG Oral Tablet (Aldactone)Indicatio ns:Chronic diastolic (congestive) heart failure (HCC),HTN, goal below 140/90 Take 1 Tablet by mouth in the morning. 90 Tablet 3 4 Active Hospital, Clinic, or Other Facility Administered Medication Ordered Dose Route Frequency Start Date End Date Status naloxone (Narcan Nasal) 4 MG/0.1ML nasal spray 4 mgIndications:Typical atrial flutter (HCC),PAF (paroxysmal atrial fibrillation) (HCC),Obesity hypoventilation syndrome (HCC),Chronic diastolic (congestive) heart failure (HCC),Atherosclerosis of aorta (HCC) 4 mg NA PRN 02/02/2023 Active documented as of this encounter (statuses as of 10/18/2023) Active Problems Problem Noted Date Diagnosed Date [...] as of this encounter (statuses as of 10/18/2023) Resolved Problems Problem Noted Date Diagnosed Date Resolved Date Food insecurity 02/06/2023 07/12/2023 Overview: Per [facility] Protocol Abdominal wall abscess 08/27/202002/15 Overview: [facility] Opioid dependence, uncomplicated 05/19/2020 06/07/2021 Sacroiliitis, not [...] as of this encounter (statuses as of 10/18/2023) Immunizations Name Administration Dates Next Due COVID-19 mRNA, LNP-s, No Pre serve, 2-Dose Series ([employer] 11/03/2020,10/13/2020 COVID-19, LNP-s, No Preserve , Dago-sucrose, Ages 12+ (Pfizer) 05/18/2021 COVID-19, MRNA-LNP, 23-24, P F, 30 MCG/0.3 mL, 12 YRS AND ABOVE, IM (PFIZER-Comirnaty) 12/21/2022 H1N1 2009 Influenza, IM 02/25/2009 Hepatitis B, 20+ yrs 04/06/2018,08/14/2014,05/30 Pneumococcal Conjugate Vacci ne, 20-valent ([id number]) 05/17/2022 Pneumococcal Polysaccharide PPV23 (Pneumovax) 02/12/2009,09/11/2008(Deferred: Patient Refused) Seasonal Influenza, PF, 6 M & above, IM , (FluLaval or Fluzone) 12/21/2022,02/04/2022,04/12/2021,12/06 Seasonal Influenza, Split, I IV3, With Preserve, Inj 12/19/2016,12/09/2010,12/29/2009,02/12 TD - Tetanus/Diptheria (ADULT) 07/28/2002 TDAP, [...] on file documented as of this encounter Miscellaneous Notes * Telephone Encounter - Kathryn Ferrari RN - 10/18/2023 11:44 AM EDT appt given for Monday * Telephone Encounter - Risa Otoole OSA - 10/16/2023 3:54 PM EDT No Appointments Available Patient declined appointments?: No What Visit Type is needed? Acute If Acute Visit Type is needed, were surrounding clinics offered to patient (Yes/No)? Yes Was patient offered appointments with other available providers (Yes/No)? Yes See Call Details? (Yes or No): No Stomach issues + diarrhea documented in this encounter Plan of Treatment Upcoming Encounters Date Type Department Care Team (Late st Contact Info) Description 10/20/2023 9:20 AM EDT Office Visit Family Medicine [address] [place] [phone] Lizabeth Verdin PA-C [address] [place] [address] [place] [phone] 10/23/2023 10:00 AM EDT Office Visit Family Medicine [address] [place] [phone] Mariel Mckeon MD [address] [place] [address] [place] [address] 11/01/2023 1:30 PM EDT Anticoagulation Pharmacy, [address] [place] [address] [place] [address] 11/21/2023 11:00 AM EDT Office Visit Hepatology, [facility] [address] [facility] [place] [address] Martina Del Toro MD [address] [place] [address] 03/20/2024 11:30 AM EST Office Visit Urology, [facility] [address] [facility] [place] [address] Brett Fontenot MD [address] [place] [address] 04/08/2024 1:30 PM EST Office Visit Cardiology, [facility] [address] [facility] [place] [address] Day Gonsales PA-C [address] [facility] [place] [address] Scheduled Procedures Name Priority Associated Diagnoses Date/Ti me COLONOSCOPY FLEXIBLE PROXIMAL DIAGNOSTIC Recall History of colon polyps Health Maintenance Due Date Last Done Comments Sigmoidoscopy 2005 Zoster Vaccines (1 of 2) 2010 DTaP,Tdap,and Td Vaccines (2 - Td or Tdap) 08/26/2020 [...] Not on filedocumented as of this encounter Care Teams Cloth Stretcher Relationship Specialty Start Date End Date Mariel Mckeon MD [address] [place] [address] [place] [phone] PCP - General Family Medicine 03/22/23 documented as of this encounter
--- OUTSIDE RECORDS SUMMARY | 2023-11-04 04:43 | External Medical Summary | Summary of Care ---
Author Name Unknown Organization [facility] Address [address] [place] [address] Phone [phone] Care Team Providers Care Electric Distribution Engineer Name Role Phone Mariel Mckeon MD Primary Care Provide r Reason for Visit * Reason Onset Date Comments No Show 10/26/2023 [facility] No Show Auto mation Encounter Details Date Type Department Care Team (Late st Contact Info) Description 10/26/2023 Telephone Family Medicine [address] [address] Mariel Mckeon MD [address] [place] [address] [place] [address] No Show ([place] No Show Automation) Allergies Active Allergy Reactions Criticality Noted Date Comments Adhesive Tape 09/20/2020 Other reaction(s): Rash Diflunisal Nausea/vomiting 02/05/2008 Apixaban Flushing 05/26/2021 Flushing on his backside - looks like a sun tom Iodinated Contrast Media 05/26/2021 Skin peels like a sun burn Rivaroxaban High 09/20/2020 Other reaction(s): Rash documented as of this encounter (statuses as of 10/26/2023) Medications Medication Sig Dispensed Refills Start Date [...] 0 Active Multivitamin Adult Oral TabletIndications:ov erall health Take by mouth 1 Tablet daily . [...] before bedtime. Active Digestive Advantage Oral CapsuleIndications:d Xinrong Take by mouth 1 Capsule daily . [...] Nausea. 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 60 Tablet 1 4 Active Gabapentin 800 MG Oral Tablet (Neurontin)Dominicktio ns:Chronic back pain greater than 3 months duration TAKE ONE TABLET BY MOUTH TWICE DAILY 60 Tablet 5 4 Active glipiZIDE 10 MG Oral Tablet (Glucotrol)Dominicktio ns:Type 2 diabetes mellitus with hemoglobin A1c goal of less than 7.0% ([facility]) TAKE 1 AND 1/2 TABLETS BY MOUTH [...] as of this encounter (statuses as of 10/26/2023) Active Problems Problem Noted Date Diagnosed Date [...] as of this encounter (statuses as of 10/26/2023) Resolved Problems Problem Noted Date Diagnosed Date Resolved Date Food insecurity 02/06/2023 07/12/2023 Overview: Per [facility] Protocol Abdominal wall abscess 08/27/202002/15 Overview: [facility] Opioid dependence, uncomplicated 05/19/2020 06/07/2021 Sacroiliitis, [...] as of this encounter (statuses as of 10/26/2023) Immunizations Name Administration Dates Next Due COVID-19 mRNA, LNP-s, No Pre serve, 2-Dose Series ([employer]) 11/03/2020,10/13/2020 COVID-19, LNP-s, No Preserve , Dago-sucrose, Ages 12+ (Pfizer) 05/18/2021 COVID-19, MRNA-LNP, 23-24, P F, 30 MCG/0.3 mL, 12 YRS AND ABOVE, IM (PFIZER-Comirnaty) 12/21/2022 H1N1 2009 Influenza, IM 02/25/2009 Hepatitis B, 20+ yrs 04/06/2018,08/14/2014,05/30 Pneumococcal Conjugate Vacci ne, 20-valent ([id number]) 05/17/2022 Pneumococcal Polysaccharide PPV23 (Pneumovax) 02/12/2009,09/11/2008(Deferred: Patient [...] encounter Miscellaneous Notes * Telephone Encounter - Leslie Gómez Show - 10/26/2023 7:18 AM EDT Dear Rakesh Redd, Looks like you missed an appointment with MARIEL MCKEON on 10/23/2023 at 10:00 AM. If you haven't already rescheduled, you have a couple of options: Reschedule in [email or web address] Call us at [phone] Can't make a future appointment? Cancel and let someone else have your spot! It's easy to do via Snapd App or by calling us. Thanks for trusting [facility] with your care. We hope to see you back in our office soon. Sincerely, MARIEL MCKEON documented in this encounter Plan of Treatment Upcoming Encounters Date Type Department Care Team (Late st Contact Info) Description 11/02/2023 1:20 PM EDT Pharmacy Pharmacy, [address] [place] [address] [place] [address] 11/02/2023 1:40 PM EDT Anticoagulation Pharmacy, [address] [place] [address] [place] [address] 11/13/2023 2:45 PM EDT NeuroDiagnostic Study Neurophysiology [facility] [address] [place] [address] Dewayne Hassan MD [address] [place] [address] 11/21/2023 11:00 AM EDT Office Visit Hepatology, [facility] [address] [facility] [place] [address] Martina Del Toro MD [address] [place] [address] 03/20/2024 11:30 AM EST Office Visit Urology, [facility] [address] [facility] [place] [address] Brett Fontenot MD [address] [place] [address] 04/08/2024 1:30 PM EST Office Visit Cardiology, [facility] [address] [facility] [place] [address] Day Gonsales PA-C [address] [facility] [place] [address] Scheduled Procedures Name Priority Associated Diagnoses Date/Ti [...] filedocumented as of this encounter Care Teams Electric Distribution Engineer Relationship Specialty Start Date End Date Mariel Mckeon MD [address] [place] [address] [place] [phone] PCP - General Family Medicine 03/22/23 documented as of this encounter
--- OUTSIDE RECORDS SUMMARY | 2023-11-04 04:43 | External Medical Summary | Summary of Care ---
Author Name Unknown Organization [facility] Address [address] [place] [address] Phone [phone] Care Team Providers Care Payroll And Benefits Manager Name Role Phone Mariel Mckeon MD Primary Care Provide r Reason for Visit * Reason Comments Medication Refill Encounter Details Date Type Department Care Team (Late st Contact Info) Description 10/23/2023 Refill Nutrition & Weight Management, [facility] [address] [place] [address] Haley Bean PA-C [address] [place] [address] Type 2 diabetes mellitus with hemoglobin A1c goal of less than 7.0% ([facility]) Allergies Active Allergy Reactions Criticality Noted Date Comments Adhesive Tape 09/20/2020 Other reaction(s): Rash Diflunisal Nausea/vomiting 02/05/2008 Apixaban Flushing 05/26/2021 Flushing on his backside - looks like a sun tom Iodinated Contrast Media 05/26/2021 Skin peels like a sun burn Rivaroxaban High 09/20/2020 Other reaction(s): Rash documented as of this encounter (statuses as of 10/23/2023) Medications Medication Sig Dispensed Refills Start Date End Date Status LORATADINE 10 MG PO TABSIndications:All ergic rhinitis One pill by mouth once a day as needed for allergies 30 Tab 5 4 Active Additional Information Patient taking differently: 10 mgOralDAILY PRN, Rhinitis, Indications: as needed for allergies, Reported on 04/13/2022 buprenorphine HCl (SUBUTEX) 8 MG Sublingual tabletIndications:f or pain Take 1 Tablet by mouth in the morning and 1 Tablet at noon and 1 Tablet before bedtime. 0 Active Multivitamin Adult Oral TabletIndications:o verall health Take by mouth 1 Tablet daily . Active OneTouch Ultra Blue In Vitro Strip (Glucose Blood)Indications:T ype 2 diabetes mellitus with hemoglobin A1c goal of less than 7.0% (HCC) Test once daily Dx E11.9 100 Strip 11 0 Active OneTouch UltraSoft LancetsIndications: Type 2 diabetes mellitus with hemoglobin A1c goal of less than 7.0% (HCC) Test once daily Dx E11.9 100 Each 11 0 Active BiPAPIndications:sl eep every night at bedtime . Active guaiFENesin ER 600 MG Oral Tablet Extended Release 12 Hour Take 1 Tablet by mouth in the morning and 1 Tablet before bedtime. Active Digestive Advantage Oral CapsuleIndications: digestive health Take by mouth 1 Capsule daily . Active Polyethylene Glycol 3350 17 GM/SCOOP Oral Powder (Miralax)Indication s:for constipation Take 17 g by mouth 3 times a day as needed for Constipation. 578 g 5 3 Active Triamcinolone Acetonide 0.1 % External Cream (Aristocort)Indicat ions:Allergic contact dermatitis due to other agents,Poison jose dermatitis Apply topically to affected area 2 times a day. To affected area. 60 g 3 Active Triamcinolone Acetonide 0.1 % External Cream (Aristocort)Indicat ions:Venous stasis dermatitis of both lower extremities Apply topically to affected area 2 times a day. To affected area. 60 g 5 3 Active Ondansetron HCl 4 MG Oral Tablet (Zofran) Take 1 Tablet by mouth every 8 hours as needed for Nausea. 20 Tablet 3 Active Nystatin-Triamcinol one 681915-9.1 UNIT/GM-% External Cream (Mycolog)Indication s:Dermatitis APPLY TOPICALLY TO AFFECTED AREA TWICE DAILY 30 g 3 Active Pantoprazole Sodium 40 MG Oral Tablet Delayed Release (Protonix)Indicatio ns:Severe obstructive sleep apnea Take 1 Tablet by [...] 04/11/19 25 Active Lidocaine 5 % External OintmentIndications :Chronic bilateral low back pain without sciatica Apply to back daily as needed for pain 106.32 g 1 4 Active Tamsulosin HCl 0.4 MG Oral Capsule (Flomax) Take 1 Capsule by mouth in the morning and 1 Capsule before bedtime. 180 Capsule 3 4 Active Warfarin Sodium 5 MG Oral Tablet (Coumadin)Indicatio ns:PAF (paroxysmal atrial fibrillation) ([facility]),Anticoagulati on management encounter,retirement current use of anticoagulant therapy,Atrial flutter, unspecified type ([facility]) TAKE 1 AND 1/2 TABLETS (7.5MG) BY MOUTH DAILY OR DIRECTED BY ANTICOAGULATION CLINIC 140 Tablet 1 4 07/05/19 25 Active Narcan 4 MG/0.1ML Nasal LiquidIndications:u se if suspected overdose occurs As needed for respiratory depression 1 Each 4 Active Sennosides-Docusate Sodium 8.6-50 MG Oral Tablet (Senokot-S)Indicati ons:Constipation, unspecified constipation type Take 1 Tablet by mouth in the morning and 1 Tablet before bedtime. 60 Tablet 1 4 Active Gabapentin 800 MG Oral Tablet (Neurontin)Indicati ons:Chronic back pain greater than 3 months duration TAKE ONE TABLET BY MOUTH TWICE DAILY 60 Tablet 5 4 Active glipiZIDE 10 MG Oral Tablet (Glucotrol)Indicati ons:Type 2 diabetes mellitus with hemoglobin A1c goal of less than 7.0% ([facility]) TAKE 1 AND 1/2 TABLETS BY MOUTH IN THE MORNING AND 1 AND 1/2 TABLETS IN THE EVENING 270 Tablet 1 4 Active Empagliflozin 25 MG Oral Tablet (Jardiance)Indicati ons:Type 2 diabetes mellitus with hemoglobin A1c goal of less than 7.0% (HCC) TAKE ONE TABLET BY MOUTH IN THE MORNING 90 Tablet 1 4 Active Atorvastatin Calcium 40 MG Oral Tablet (Lipitor)Indication s:Hyperlipidemia with target LDL less than 100 TAKE ONE TABLET BY MOUTH AT BEDTIME 90 Tablet 1 4 Active hydrOXYzine HCl 25 MG Oral TabletIndications:P ruritus Take 1 Tablet by mouth every 6 hours as needed for Itching. 40 Tablet 2 4 Active FreeStyle Abi 2 SensorIndications:b lood sugar monitoring Use as directed. Use as directed 9 Each 1 4 Active Torsemide 20 MG Oral Tablet (Demadex)Indication s:Generalized edema TAKE 1/2 TABLET BY MOUTH 2 [...] Active Pramipexole Dihydrochloride 0.25 MG Oral Tablet (Mirapex)Indication s:Restless legs syndrome TAKE 1 TABLET BY MOUTH AT BEDTIME FOR RESTLESS LEGS. 90 Tablet 1 4 09/25/19 25 Active Spironolactone 25 MG Oral Tablet (Aldactone)Indicati ons:Chronic diastolic (congestive) heart failure (HCC),HTN, goal below 140/90 Take 1 Tablet by mouth in the morning. 90 Tablet 3 4 Active Ozempic (1 MG/DOSE) 4 MG/3ML Subcutaneous Solution Pen-injector (Semaglutide (1 MG/DOSE))Indication s:Type 2 diabetes mellitus with hemoglobin A1c goal of less than 7.0% (HCC) Inject 1 mg under the skin once a week. 3 mL 1 4 Active Ozempic (1 MG/DOSE) 4 MG/3ML Subcutaneous Solution Pen-injector (Semaglutide (1 MG/DOSE))Indication s:Type 2 diabetes mellitus with hemoglobin A1c goal of less than 7.0% (HCC) Inject 1 mg under the skin once a week. 3 mL 1 4 10/23/19 24 Discontin ued(Refil l) Hospital, Clinic, or Other Facility Administered Medication Ordered Dose Route Frequency Start Date End Date Status naloxone (Narcan Nasal) 4 MG/0.1ML nasal spray 4 mgIndications:Typical atrial flutter (HCC),PAF (paroxysmal atrial fibrillation) (HCC),Obesity hypoventilation syndrome (HCC),Chronic diastolic (congestive) heart failure (HCC),Atherosclerosis of aorta (HCC) 4 mg NA PRN 02/02/2023 Active documented as of this encounter (statuses as of 10/23/2023) Active Problems Problem Noted Date Diagnosed Date [...] as of this encounter (statuses as of 10/23/2023) Resolved Problems Problem Noted Date Diagnosed Date Resolved Date Food insecurity 02/06/2023 07/12/2023 Overview: Per [facility] Protocol Abdominal wall abscess 08/27/202002/15 Overview: [facility] Opioid dependence, uncomplicated 05/19/2020 06/07/2021 Sacroiliitis, [...] SITE 12/13/2005 [place]az[place] 10/25/2005 07/21/2011 Overview: Dr Hidlago right upper lid, hot tea bags and [...] as of this encounter (statuses as of 10/23/2023) Immunizations Name Administration Dates Next Due COVID-19 mRNA, LNP-s, No Pre serve, 2-Dose Series ([employer] [facility] [facility]) 11/03/2020,10/13/2020 COVID-19, LNP-s, No Preserve , Dago-sucrose, Ages 12+ ([employer] [facility] [facility]) 05/18/2021 COVID-19, MRNA-LNP, 23-24, P F, 30 MCG/0.3 mL, 12 YRS AND ABOVE, IM (PFIZER-Comirnaty) 12/21/2022 H1N1 2009 Influenza, IM 02/25/2009 Hepatitis B, 20+ yrs 04/06/2018,08/14/2014,05/30 Pneumococcal Conjugate Vacci ne, 20-valent ([id number]) 05/17/2022 Pneumococcal Polysaccharide PPV23 (Pneumovax) 02/12/2009,09/11/2008(Deferred: Patient [...] No 07/06/2023 Does the household have a [facility] source of income? (Household - for ages [...] encounter Miscellaneous Notes * Telephone Encounter - Haley Bean PA-C - 10/23/2023 2:06 PM EDT Needs f/u scheduled - last fill until seen * Telephone Encounter - Haley Bean PA-C - 10/23/2023 2:06 PM EDT Signed Prescriptions: Disp Refills Ozempic (1 MG/DOSE) 4 MG/3ML Subcutaneous *3 mL 1 Sig: Inject 1 mg under the skin once a week. Authorizing Provider: HALEY BEAN documented in this encounter Plan of Treatment Upcoming Encounters Date Type Department Care Team (Late st Contact Info) Description 10/24/2023 4:00 PM EDT Office Visit Family Medicine [address] [place] [address] Lizabeth Verdin PA-C [address] [place] [address] [place] [address] 11/02/2023 1:20 PM EDT Pharmacy Pharmacy, [address] [place] [address] [place] [address] 11/02/2023 1:40 PM EDT Anticoagulation Pharmacy, [address] [place] [address] [place] [address] 11/21/2023 11:00 AM EDT Office Visit Hepatology, [facility] [address] [facility] [place] [address] Martina Del Toro MD [address] [place] [address] 03/20/2024 11:30 AM EST Office Visit Urology, [facility] [address] [facility] [place] [address] Brett Fontenot MD [address] [place] [phone] 04/08/2024 1:30 PM EST Office Visit Cardiology, [facility] [address] [place] [address] Day Gonsales PA-C [address] [place] [address] Scheduled Procedures Name Priority Associated Diagnoses Date/Ti [...] Not on filedocumented as of this encounter Visit Diagnoses Diagnosis Type 2 diabetes mellitus with hemoglobin A1c goal of less than 7.0% (HCC) documented in this encounter Care Teams Payroll And Benefits Manager Relationship Specialty Start Date End Date Mariel Mckeon MD [address] [place] [address] [place] [phone] PCP - General Family Medicine 03/22/23 documented as of this encounter
--- OUTSIDE RECORDS SUMMARY | 2023-11-04 04:43 | External Medical Summary | Summary of Care ---
Author Name Unknown Organization [facility] Address [address] [place] [address] Phone [phone] Care Team Providers Care Online Merchandising Manager Name Role Phone Mariel Mckeon MD Primary Care Provide r Reason for Visit * Reason Comments Follow Up Per recent MyChart- lethargic and intermittent chest pain. Encounter Details Date Type Department Care Team (Late st Contact Info) Description 09/26/2023 11:00 AM EDT Office Visit Cardiology, [facility] [address] [place] [address] Day Gonsales PA-C [address] [place] [address] Dizzy*; Fatigue, unspecified type; PAF (paroxysmal atrial fibrillation) ([facility]); Chronic diastolic (congestive) heart failure ([facility]); Essential hypertension with goal blood pressure less than 130/80 Allergies Active Allergy Reactions Criticality Noted Date Comments Adhesive Tape 09/20/2020 Other reaction(s): Rash Diflunisal Nausea/vomiting 02/05/2008 Apixaban Flushing 05/26/2021 Flushing on his backside - looks like a sun tom Iodinated Contrast Media 05/26/2021 Skin peels like a sun burn Rivaroxaban High 09/20/2020 Other reaction(s): Rash documented as of this encounter (statuses as of 10/04/2023) Medications Medication Sig Dispensed Refills Start Date [...] Nausea. 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 40 Tablet 2 4 Active Lidocaine 5 % External OintmentIndications :Chronic right-sided low back pain with right-sided sciatica,Chronic back pain greater than 3 months duration Apply to back daily as needed for pain 212.64 g 3 4 10/11/19 24 Active FreeStyle Abi 2 SensorIndications:b lood sugar monitoring Use as directed. Use as directed 9 Each 4 Active Torsemide 20 MG Oral Tablet (Demadex)Indication s:Generalized edema TAKE 1/2 TABLET BY MOUTH 2 TIMES A DAY 90 Tablet 4 09/25/19 25 Active Metoprolol Succinate ER [...] Tablet 1 4 09/25/19 25 Active Spironolactone 50 MG Oral Tablet (Aldactone)Indicati ons:Chronic diastolic (congestive) heart failure (HCC),HTN, goal below 140/90 Take 1 Tablet by mouth in the morning. 90 Tablet 3 3 09/27/19 24 Discontin ued(Medic ation/Dos e Changed) Hospital, Clinic, or Other Facility Administered Medication Ordered Dose Route Frequency Start Date End Date Status naloxone (Narcan Nasal) 4 MG/0.1ML nasal spray 4 mgIndications:Typical atrial flutter (HCC),PAF (paroxysmal atrial fibrillation) (HCC),Obesity hypoventilation syndrome (HCC),Chronic diastolic (congestive) heart failure (HCC),Atherosclerosis of aorta (HCC) 4 mg NA PRN 02/02/2023 Active documented as of this encounter (statuses as of 10/04/2023) Active Problems Problem Noted Date Diagnosed Date [...] as of this encounter (statuses as of 10/04/2023) Resolved Problems Problem Noted Date Diagnosed Date Resolved Date Food insecurity 02/06/2023 07/12/2023 Overview: Per [facility] Protocol Abdominal wall abscess 08/27/202002/15 Overview: [facility] Opioid dependence, uncomplicated 05/19/2020 06/07/2021 Sacroiliitis, not [...] as of this encounter (statuses as of 10/04/2023) Immunizations Name Administration Dates Next Due COVID-19 mRNA, LNP-s, No Pre serve, 2-Dose Series (CaterCow) 11/03/2020,10/13/2020 COVID-19, LNP-s, No Preserve , Dago-sucrose, Ages 12+ (Pfizer) 05/18/2021 COVID-19, MRNA-LNP, 23-24, P F, 30 MCG/0.3 mL, 12 YRS AND ABOVE, IM (PFIZER-Comirnaty) 12/21/2022 H1N1 2009 Influenza, IM 02/25/2009 Hepatitis B, 20+ yrs 04/06/2018,08/14/2014,05/30 Pneumococcal Conjugate Vacci ne, 20-valent ([id number]) 05/17/2022 Pneumococcal Polysaccharide PPV23 (Pneumovax) 02/12/2009,09/11/2008(Deferred: Patient [...] No 07/06/2023 Does the household have a [facility] source of income? (Household - for ages [...] on file documented as of this encounter Last Filed Vital Signs Vital Sign Reading Time Taken Comments Blood Pressure 118/68 09/26/2023 11:15 AM EDT Pulse 72 09/26/2023 11:15 AM EDT Temperature - - Respiratory Rate 16 09/26/2023 11:15 AM EDT Oxygen Saturation - - Inhaled Oxygen Concentration - - Weight 105.3 kg (232 lb 4 oz) 09/26/2023 11:15 A M EDT Height - - Body Mass Index 34.3 05/25/2023 8:21 AM EDT documented in this encounter Progress Notes * Day Gosnales PA-C - 09/26/2023 11:19 AM EDT Cardiology F/U: HPI: Patient is a 62-year-old male who presents today with his cardiology follow-up. Last clinic evaluation approximately 6 months ago with PAIGE Muir. 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 Ashraf Past medical history: Paroxysmal atrial fibrillation/flutter, [id number] score of 3 (CHF, hypertension, diabetes), on Coumadin 99% burden on recent monitor with controlled rates (10/2022) Chronic diastolic and right-sided heart failure Obesity with Severe TINO, Pickwickian physiology Hypertension Dyslipidemia He presents today with several concerns. Intermittent dizziness and low BP noted at times. No syncope or near syncope. He also reports sharp stabbing right sided chest pain at times. Non exertional. No radiation. Lastsseconds and resolves. TUMS often helps as well. Stable mild dyspnea reported. No palpitations, dizziness, syncope or near syncope. No orthopnea, PND, or increased lower extremity edema. No fever, chills, cough, hematochezia, melena, or hemoptysis. Review of Systems: See HPI for pertinent positives. All others negative, other than those noted in HPI. Patient Active Problem List Diagnosis Severe obstructive sleep apnea Diverticulosis of colon DM type 2 causing neurological disease (HCC) Type 2 diabetes mellitus with hemoglobin A1c goal of less than 7.0% (HCC) Diabetic polyneuropathy associated with type 2 diabetes mellitus (HCC) Chronic back pain greater than 3 months duration Erectile dysfunction Essential hypertension with goal blood pressure less than 130/80 Obesity hypoventilation syndrome (HCC) BMI 35.0-35.9,adult Typical atrial flutter (HCC) PAF (paroxysmal atrial fibrillation) (HCC) Chronic diastolic (congestive) heart failure (HCC) 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) CKD (chronic kidney disease), stage II Hypertensive heart and kidney disease with chronic diastolic congestive heart failure and stage 2 chronic kidney disease (HCC) Type 2 diabetes mellitus with stage 2 chronic kidney disease, without long-term current use of insulin (HCC) Atherosclerosis of aorta (HCC) Dyslipidemia, goal LDL below 70 BPH with obstruction/lower urinary tract symptoms Persistent atrial fibrillation (HCC) Social History Tobacco Use Smoking status: Former Current packs/day: 0.00 Average packs/day: 1 pack/day for 15.0 years (15.0 ttl pk-yrs) Types: Cigarettes Start date: 10/24/1974 Quit date: 10/24/1989 Years since quittin.9 Smokeless tobacco: Former Tobacco comments: quit age 24 or so Vaping Use Vaping status: Never Used Substance Use Topics Alcohol use: Never Drug use: Yes Frequency: 1.0 times per week Types: Marijuana Comment: Only when having a hard time sleeping Review of patient's allergies indicates: Allergen Reactions Rivaroxaban Other reaction(s): Rash Adhesive Tape Other reaction(s): Rash Dolobid [Diflunisal] Nausea/vomiting Eliquis [Apixaban] Flushing Flushing on his backside - looks like a sun tom Iodinated Contrast Media Skin peels like a sun burn Current Outpatient Medications Medication Sig Dispense Refill LORATADINE 10 MG PO TABS One pill by mouth once a day as needed for allergies (Patient taking differently: Take 1 Tablet by mouth daily as needed for Rhinitis.) 30 Tab 5 buprenorphine HCl (SUBUTEX) 8 MG Sublingual tablet Take 1 Tablet by mouth in the morning and 1 Tablet at noon and 1 Tablet before bedtime. Multivitamin Adult Oral Tablet Take by mouth 1 Tablet daily . OneTouch Ultra Blue In Vitro Strip (Glucose Blood) Test once daily Dx E11.9 100 Strip 11 OneTouch UltraSoft Lancets Test once daily Dx E11.9 100 Each 11 BiPAP every night at bedtime . guaiFENesin ER 600 MG Oral Tablet Extended Release 12 Hour Take 1 Tablet by mouth in the morning and 1 Tablet before bedtime. Digestive Advantage Oral Capsule Take by mouth 1 Capsule daily . Polyethylene Glycol 3350 17 GM/SCOOP Oral Powder (Miralax) Take 17 g by mouth 3 times a day as needed for Constipation. 578 g 5 Triamcinolone Acetonide 0.1 % External Cream (Aristocort) Apply topically to affected area 2 times a day. To affected area. 60 g 0 Spironolactone 50 MG Oral Tablet (Aldactone) Take 1 Tablet by mouth in the morning. 90 Tablet 3 Triamcinolone Acetonide 0.1 % External Cream (Aristocort) Apply topically to affected area 2 times a day. To affected area. 60 g 5 Ondansetron HCl 4 MG Oral Tablet (Zofran) Take 1 Tablet by mouth every 8 hours as needed for Nausea. 20 Tablet 0 Nystatin-Triamcinolone 454375-8.1 UNIT/GM-% External Cream (Mycolog) APPLY TOPICALLY TO AFFECTED AREA TWICE DAILY 30 g 0 Pantoprazole Sodium 40 MG Oral Tablet Delayed Release (Protonix) Take 1 Tablet by mouth in the morning. 90 Tablet 1 Finasteride 5 MG Oral Tablet (Proscar) Take 1 Tablet by mouth in the morning. 90 Tablet 3 Albuterol Sulfate HFA 108 (90 Base) MCG/ACT Inhalation Aerosol Solution INHALE 2 PUFFS BY MOUTH EVERY 4 HOURS NEEDED FOR WHEEZING. 18 g 5 Lidocaine 5 % External Ointment Apply to back daily as needed for pain 106.32 g 1 Tamsulosin HCl 0.4 MG Oral Capsule (Flomax) Take 1 Capsule by mouth in the morning and 1 Capsule before bedtime. 180 Capsule 3 Warfarin Sodium 5 MG Oral Tablet (Coumadin) TAKE 1 AND 1/2 TABLETS (7.5MG) BY MOUTH DAILY OR DIRECTED BY ANTICOAGULATION CLINIC 140 Tablet 1 Narcan 4 MG/0.1ML Nasal Liquid As needed for respiratory depression 1 Each 0 Sennosides-Docusate Sodium 8.6-50 MG Oral Tablet (Senokot-S) Take 1 Tablet by mouth in the morning and 1 Tablet before bedtime. 60 Tablet 1 Gabapentin 800 MG Oral Tablet (Neurontin) TAKE ONE TABLET BY MOUTH TWICE DAILY 60 Tablet 5 glipiZIDE 10 MG Oral Tablet (Glucotrol) TAKE 1 AND 1/2 TABLETS BY MOUTH IN THE MORNING AND 1 AND 1/2 TABLETS IN THE EVENING 270 Tablet 1 Empagliflozin 25 MG Oral Tablet (Jardiance) TAKE ONE TABLET BY MOUTH IN THE MORNING 90 Tablet 1 Atorvastatin Calcium 40 MG Oral Tablet (Lipitor) TAKE ONE TABLET BY MOUTH AT BEDTIME 90 Tablet 1 Ozempic (1 MG/DOSE) 4 MG/3ML Subcutaneous Solution Pen-injector (Semaglutide (1 MG/DOSE)) Inject 1 mg under the skin once a week. 3 mL 1 hydrOXYzine HCl 25 MG Oral Tablet Take 1 Tablet by mouth every 6 hours as needed for Itching. 40 Tablet 2 Lidocaine 5 % External Ointment Apply to back daily as needed for pain 212.64 g 3 FreeStyle Abi 2 Sensor Use as directed. Use as directed 9 Each 1 Torsemide 20 MG Oral Tablet (Demadex) TAKE 1/2 TABLET BY MOUTH 2 TIMES A DAY 90 Tablet 1 Metoprolol Succinate ER 50 MG Oral Tablet Extended Release 24 Hour (toPROL XL) Take 1 tablet by mouth twice a day 180 Tablet 1 metFORMIN HCl ER 500 MG Oral Tablet Extended Release 24 Hour (Glucophage XR) TAKE 2 TABLETS BY MOUTH TWICE DAILY WITH MORNING AND EVENING MEALS 360 Tablet 1 Pramipexole Dihydrochloride 0.25 MG Oral Tablet (Mirapex) TAKE 1 TABLET BY MOUTH AT BEDTIME FOR RESTLESS LEGS. 90 Tablet 1 Current Facility-Administered Medications Medication Dose Route Frequency Provider Last Rate Last Admin naloxone (Narcan Nasal) 4 MG/0.1ML nasal spray 4 mg 4 mg Nasal PRN Joseph Goodman MD Physical Exam BP 118/68 | Pulse 72 | Resp 16 | Wt 105.3 kg (232 lb 4 oz) | BMI 34.30 kg/m | BSA 2.26 m On my repeat 110/60 General: No acute distress. A+Ox3. HEENT: Normocephalic. Atraumatic. Conjunctiva and sclera clear. NECK: No carotid bruits. No JVD. Carotid upstrokes are brisk. Heart: RRR. S1 and S2 noted without murmur, rubs, gallops. PMI non displaced. Lungs: Clear to auscultation. No wheezes, rhonchi, rales. Abdomen: Normal bowel sounds. Soft. Nontender. No masses or organomegaly. No abdominal bruits. Extremities: No edema. No clubbing or cyanosis. Pulses: radial=2/4, posterior tibial=2/4, dorsalis pedis = 2/4. NEURO: No focal deficits. PSYCH: Normal. Lab data/imaging study review: EKG performed today and reviewed personally: Sinus bradycardia Otherwise normal ECG When compared with ECG of 01-Feb-2023 09:57, Sinus rhythm has replaced Atrial flutter Echo report reviewed dated Feb 2023: Interpretation Summary The examination is adequate to evaluate the referral indication. The qualitative LV ejection fraction is 55-59% (normal). The LV wall thickness is mildly increased (concentric). The left ventricular wall motion is normal. No significant valvular disease is present. The left atrium is normal sized (< 35 ml/m^2). The right atrial size is normal. Compared to previous echo 06/10/20, no significant changes. ZIO 10/2022: CONCLUSIONS: Duration: 8 days, 4 hours Patient had a min HR of 50 bpm, max HR of 182 bpm, and avg HR of 82 bpm. Predominant underlying rhythm was Atrial Fibrillation. Atrial Fibrillation occurred (99% burden), ranging from 50-182 bpm (avg of 83 bpm), the longest lasting 7 days 0 hours with an avg rate of 82 bpm. Atrial Fibrillation was present at de-activation of device. Atrial Fibrillation was detected within +/- 45 seconds of symptomatic patient event(S). Isolated SVEs were rare (<1.0%), SVE Couplets were rare (<1.0%), and SVE Triplets were rare (<1.0%). Isolated VEs were rare (<1.0%), and no VE Couplets or VE Tripletswere present. Symptoms correlate with sinus rhythm at 83 beats per minute as well as atrial fibrillation with heart rate ranging from 72-126 bpm. Echo 06/10/2020 The examination is adequate to evaluate the referral indication. There was atrial fibrillation during the examination. The qualitative LV ejection fraction is 55-59% (normal). The LV wall thickness is mildly increased (concentric). The left ventricular wall motion is normal. No significant valvular disease is present. The left atrium is normal sized (< 35 ml/m^2). The right atrial size is normal. ZIO 05/29/2020 A ClikthroughoPatch XT monitor was worn for Three days and 9 hours ranging from 05/29/2020 until 06/01/2020. Patient had a min HR of 59 bpm, max HR of 148 bpm, and avg HR of 83 bpm. Predominant underlying rhythm was Atrial Fibrillation. Atrial Fibrillation occurred (55% burden), ranging from 60-148 bpm (avg of 87 bpm), the longest lasting 1 day 2 hours with an avg rate of 87 bpm. Atrial Fibrillation was detected within +/- 45 seconds of symptomatic patient event(s). Atrial Fibrillation was present at activation of device. Atrial Fibrillation was present at de-activation of device.No Isolated SVEs, SVE Couplets, or SVE Triplets were present. Isolated VEs were rare (<1.0%), and no VE Couplets or VE Triplets were present. Inverted QRS complexes possibly due to inverted placement of device. Summary: Atrial fibrillation was present, 55% atrial fibrillation burden. Ventricular rate ranged from 60 beats per minute to 148 beats per minute while in atrial fibrillation with average rate of 87 beats per minute. Exercise stress Echo 10/2017 The study was technically limited due to patient characteristics/poor acoustic windows, was adequate for the referral indication. The stress echo is negative for inducible ischemia. The stress EKG response showed no evidence of ischemia. Frequent ventricular ectopy noted during Stage 2 of exercise, with ventricular ectopic pairs, ventricular triplet, and one 4-beat run non-sustained ventricular tachycardia The exercise test was terminated per patient request due to fatigue and shortness of breath with target heart rate having been achieved. Resting hypertension was present with appropriate blood pressure response to exercise. Exercise capacity is below average . A focused study was performed today. Refer to report of prior recent study dated 10/06/2017 for details a complete resting echocardiogram performed at that time. Impression/Plan: 62 year old male 1. Atypical chest pain - likely GI or musculoskeletal based on description. 1. Symptoms are very atypical for a cardiac source. 2. Normal EKG today 2. Chronic diastolic (congestive) heart failure (HCC) 3. Chronic right-sided heart failure (HCC) Euvolemic on exam. Weights are stable. 4. Paroxysmal atrial fibrillation (HCC) - previously thought to be persistent afib, now presenting today in sinus bradycardia 1. Continue metoprolol succinate 50 mg twice daily 2. Continue Coumadin, INR goal between 2-3. Following with Coumadin clinic. 5. TINO treated with BiPAP Severe obstructive sleep apnea. 6. HTN, goal below 140/90 -BP has been borderline low with associated dizziness and fatigue -may need to reduce antihypertensive or diuretic. -update labs. Consider reduction in spironolactone 7. Dyslipidemia, goal LDL below 100 Well controlled. LDL 44 (11/2021) 1. Continue atorvastatin 40 mg daily There are no Patient Instructions on file for this visit. Patient is being evaluated in the cardiology office for ongoing care/risk management for PAF; HTN; dyslipidemia; CHF. I spent a total of 40 minutes on the date of service in preparation, delivery, and documentation ofthe care provided to Rakesh Redd excluding any time spent in the performance of separately billed services. The patient agrees to the above plan and will call with additional questions or concerns. ER with all emergencies advised. Follow-up: Return in about 6 months (around 03/28/2024). | Check-out note: Blood work today 6 month follow up Day K Dru, PA-C Department of Cardiology This chart was completed in part utilizing dineout Speech Voice Recognition Software. Grammatical errors, random word insertions, prounoun errors, and incomplete sentences are an occasional consequence of this system due to software limitations, ambient noise, and hardware issues. Any formal questions or concerns about the content, text, or information contained within the body of this dictation should be directly addressed to the provider for clarification. documented in this encounter Nursing Notes * Dave Guerin LPN - 09/26/2023 11:16 AM EDT Patient identified by full name and date of Chief Complaint Patient presents with Follow Up Per recent MyChart- lethargic and intermittent chest pain. Examination Room: 1 Name: Rakesh Redd Date of : (1960). Reason for Visit: Follow up Interim Hospitalization(s): Denies Problems/Concerns: See chief complain Chest Pain/SOB: See chief complaint [facility] Discussed: Yes [facility] is a way you can talk to your provider online through e-mail. Would you like to sign up? I can activate it for you? ALREADY ACTIVE Patient was instructed to not get up on the exam table until directed and assisted by their provider; patient is to remain seated in the chair/ wheelchair/ exam table for fall prevention and safety reasons. Patient is aware to have assistance to step down off exam table with personnel. Patient voiced full comprehension of instructions. documented in this encounter Plan of Treatment Upcoming Encounters Date Type Department Care Team (Late st Contact Info) Description 10/12/2023 3:00 PM EDT [facility] [address] [facility] [place] [phone] Elsie Ku DO [address] [place] [address] 10/23/2023 10:00 AM EDT Office Visit Family Medicine [address] [place] [phone] Mariel Mckeon MD [address] [place] [address] [place] [address] 11/01/2023 1:30 PM EDT Anticoagulation Pharmacy, [address] [place] [address] [place] [address] 11/21/2023 11:00 AM EDT Office Visit Hepatology, [facility] [address] [facility] [place] [address] Martina Del Toro MD [address] [facility] [place] [address] 03/20/2024 11:30 AM EST Office Visit Urology, [facility] [address] [facility] [place] [address] Brett Fontenot MD [address] [place] [address] 04/08/2024 1:30 PM EST Office Visit Cardiology, [facility] [address] [facility] [place] [address] Day Gonsales PA-C [address] [facility] [place] [address] Scheduled Procedures Name Priority Associated Diagnoses Date/Ti [...] Not on filedocumented as of this encounter Results * TSH WITH FREE T4 IF INDICATED (09/26/2023 12:03 PM EDT) Pathologist [facility] TSH 1.45 0.27 - 4.20 uIU/mL 09/26/2023 9:41 PM EDT LABORATORY [facility] Blood Venous blood specimen / Unknown Venipuncture / Unknown 09/26/2023 12:03 PM EDT 09/26/2023 12:03 PM EDT Day Gonsales PA-C LAB BLOOD [place] [place] Performing Organization Address City/[facility]/ZIP Co de Phone Number LAB[facility]ATORY [facility] [address] [place] [address] * MAGNESIUM (09/26/2023 12:03 PM EDT) [facility] Magnesium 2.4 1.5 - 2.6 mg/dL 09/26/2023 8:51 PM EDT LABORATORY [facility] Blood Venous blood specimen / Unknown Venipuncture / Unknown 09/26/2023 12:03 PM EDT 09/26/2023 12:03 PM EDT Day Gonsales PA-C LAB BLOOD [facility] [place] LAB[facility]ATORY [place] [address] [place] [address] * LDL CHOLESTEROL (DIRECT MEASURE) (09/26/2023 12:03 PM EDT) [facility] LDL Cholesterol (Direct Measure) 81 <=129 mg/dL 09/26/2023 8:51 PM EDT LAB[facility]ATORY [facility] Comment: LDL Cholesterol Reference Ranges (mg/dL): <70 Target level for high risk ASCVD patient <100 Optimal for general population 100-129 Near optimal for general population 130-159 Borderline high 160-189 High >=190 Very high Blood Venous blood specimen / Unknown Venipuncture / Unknown 09/26/2023 12:03 PM EDT 09/26/2023 12:03 PM EDT Day Gonsales PA-C LAB BLOOD [facility] LABORAT[facility] [address] [place] [address] * (ABNORMAL) COMPREHENSIVE METABOLIC PANEL (09/26/2023 12:03 PM EDT) BUN 18 6 - 20 mg/dL 09/26/2023 1:57 PM EDT LAB[facility]ATORY [place] 57[facility]10 Creatinine 1.2 0.6 - 1.2 mg/dL 09/26/2023 1:57 PM EDT LAB[facility] [place] [facility]10 Estimated Glomerular Filtration Rate 71 >=60 mL/min 09/26/2023 1:57 PM EDT [facility] [place] 57[facility]10 Comment:eGFR is calculated b ased on the CKD-EPI 2020 equation. Sodium 137 135 - 146 mmol/L 09/26/2023 1:57 PM EDT [facility] [place] [facility]10 Potassium 4.2 3.5 - 5.1 mmol/L 09/26/2023 1:57 PM EDT [facility] [place] [facility]10 Chloride 96(L) 98 - 107 mmol/L 09/26/2023 1:57 PM EDT [facility] [place] [facility]10 CO2 27 22 - 32 mmol/L 09/26/2023 1:57 PM EDT [facility] [place] [facility]10 Anion Gap 14 7 - 15 mmol/L 09/26/2023 1:57 PM EDT [facility] [place] [facility]10 Glucose 174(H) 70 - 120 mg/dL 09/26/2023 1:57 PM EDT [facility] [place] [facility]10 Albumin 4.3 3.8 - 5.0 g/dL 09/26/2023 1:57 PM EDT [facility] [place] [facility]10 AST 25 10 - 50 U/L 09/26/2023 1:57 PM EDT [facility] [place] [facility]10 Alkaline Phosphatase 58 35 - 130 U/L 09/26/2023 1:57 PM EDT [facility] [place] [facility]10 Bilirubin, Total 1.9(H) <=1.2 mg/dL 09/26/2023 1:57 PM EDT [facility] [place] [facility]10 Calcium 9.2 8.4 - 10.2 mg/dL 09/26/2023 1:57 PM EDT LAB[facility]ORY [place] 57-10 Protein 7.3 6.0 - 8.3 g/dL 09/26/2023 1:57 PM EDT LAB[facility]ATORY [place] 57-10 ALT 29 10 - 50 U/L 09/26/2023 1:57 PM EDT LAB[facility]ORY [place] 57-10 Blood Venous blood specimen / Unknown Venipuncture / Unknown 09/26/2023 12:03 PM EDT 09/26/2023 12:03 PM EDT Day Gonsales PA-C LAB BLOOD [facility] [place] LAB[facility]ATORY [place] [address] [address] [place] [address] * (ABNORMAL) CBC (09/26/2023 12:03 PM EDT) WBC 11.43(H) 4.00 - 10.80 K/uL 09/26/2023 12:49 PM EDT LAB[facility]ATORY [place] 5710 RBC 4.68 4.50 - 5.25 M/uL 09/26/2023 12:49 PM EDT LAB[facility]ATORY [place] 5710 HGB 14.6 14.0 - 16.8 g/dL 09/26/2023 12:49 PM EDT LAB[facility]ORY [place] 5710 HCT 44.6 40.0 - 48.4 % 09/26/2023 12:49 PM EDT LAB[facility]ORY [place] 5710 MCV 95.3 82.0 - 99.5 fL 09/26/2023 12:49 PM EDT [facility]10 MCH 31.2 27.0 - 34.0 pg 09/26/2023 12:49 PM EDT [facility]10 MCHC 32.7 32.0 - 36.0 g/dL 09/26/2023 12:49 PM EDT [facility] 5710 RDW 14.6 11.5 - 15.5 % 09/26/2023 12:49 PM EDT [facility] [place] 57-10 PLT 251 140 - 400 K/uL 09/26/2023 12:49 PM EDT [facility] [place] 57-10 MPV 10.4 6.6 - 11.1 fL 09/26/2023 12:49 PM EDT [facility] [place] 57-10 Blood Venous blood specimen / Unknown Venipuncture / Unknown 09/26/2023 12:03 PM EDT 09/26/2023 12:03 PM EDT Day Gonsales PA-C LAB BLOOD [facility] Performing Organization Address City/[facility]/ZIP Co de Phone Number [facility] [place] [address] [place] [address] [place] [phone] * EKG (09/26/2023 11:42 AM EDT) 09/26/2023 11:4 2 AM EDT Narrative Procedure Note Kuldip Ashraf DO - 09/26/2023 11:42 AM EDT REASON FOR STUDY: atypical chest pain;atypical chest pain CONCLUSIONS: Sinus bradycardia Otherwise normal ECG When compared with ECG of 01-Feb-2023 09:57, Sinus rhythm has replaced Atrial flutter Ventricular Rate: 59 Atrial Rate: 59 SD Interval: 186 QRS Duration: 100 QT/QTc: 452/447 ms P-R-T [place]: 29 : 72 : 47 degrees Day Gonsales PA-C EKG [facility] documented in this encounter Visit Diagnoses Diagnosis Dizzy- Primary Dizziness and giddiness Fatigue, unspecified type PAF (paroxysmal atrial fibrillation) (HCC) Atrial fibrillation Chronic diastolic (congestive) heart failure (HCC) Essential hypertension with goal blood pressure less than 130/80 Fatigue, unspecified type Dizzy Dizziness and giddiness documented in this encounter Care Teams Online Merchandising Manager Relationship Specialty Start Date End Date Mariel Mckeon MD [address] [place] [address] [place] [phone] PCP - General Family Medicine 03/22/23 documented as of this encounter"
--- OUTSIDE RECORDS SUMMARY | 2023-11-04 04:43 | External Medical Summary | Summary of Care ---
Author Name Unknown Organization [facility] Address [address] [place] [address] Phone [phone] Care Team Providers Care Epoxy Fabrication Supervisor Name Role Phone Mariel Mckeon MD Primary Care Provide r Reason for Visit * Reason Comments Re-Check Pt c/o hands burning ; tailbone stinging Encounter Details Date Type Department Care Team (Late st Contact Info) Description 10/24/2023 4:00 PM EDT Office Visit Family Medicine [address] [place] [phone] Lizabeth Verdin PA-C [address] [place] [address] [place] [id number] Numbness and tingling in both hands* Allergies Active Allergy Reactions Criticality Noted Date Comments Adhesive Tape 09/20/2020 Other reaction(s): Rash Diflunisal Nausea/vomiting 02/05/2008 Apixaban Flushing 05/26/2021 Flushing on his backside - looks like a sun tom Iodinated Contrast Media 05/26/2021 Skin peels like a sun burn Rivaroxaban High 09/20/2020 Other reaction(s): Rash documented as of this encounter (statuses as of 10/24/2023) Medications Medication Sig Dispensed Refills Start Date [...] before bedtime. Active Digestive Advantage Oral CapsuleIndications:d [employer] Take by mouth 1 Capsule daily . [...] Nausea. 20 Tablet 3 Active Nystatin-Triamcinolo ne 448892-6.1 UNIT/GM-% External Cream (Mycolog)Indications :Dermatitis APPLY TOPICALLY [...] Oral Tablet (Coumadin)Indication s:PAF (paroxysmal atrial fibrillation) ([facility]),Anticoagulatio n management encounter,USP current use of anticoagulant therapy,Atrial flutter, unspecified type ([facility]) TAKE 1 AND 1/2 TABLETS (7.5MG) BY [...] hemoglobin A1c goal of less than 7.0% ([facility]) TAKE 1 AND 1/2 TABLETS BY MOUTH [...] as of this encounter (statuses as of 10/24/2023) Active Problems Problem Noted Date Diagnosed Date [...] as of this encounter (statuses as of 10/24/2023) Resolved Problems Problem Noted Date Diagnosed Date Resolved Date Food insecurity 02/06/2023 07/12/2023 Overview: Per [facility] Protocol Abdominal wall abscess 08/27/202002/15 Overview: [facility] Opioid dependence, uncomplicated 05/19/2020 06/07/2021 Sacroiliitis, not [...] as of this encounter (statuses as of 10/24/2023) Immunizations Name Administration Dates Next Due COVID-19 mRNA, LNP-s, No Pre serve, 2-Dose Series (Pfizer) 11/03/2020,10/13/2020 COVID-19, LNP-s, No Preserve , Dago-sucrose, Ages 12+ (Pfizer) 05/18/2021 COVID-19, MRNA-LNP, 23-24, P F, 30 MCG/0.3 mL, 12 YRS AND ABOVE, IM (PFIZER-Comirnaty) 12/21/2022 H1N1 2009 Influenza, IM 02/25/2009 Hepatitis B, 20+ yrs 04/06/2018,08/14/2014,05/30 Pneumococcal Conjugate Vacci ne, 20-valent ([id number]) 05/17/2022 Pneumococcal Polysaccharide PPV23 (Pneumovax) 02/12/2009,09/11/2008(Deferred: Patient [...] Sign Reading Time Taken Comments Blood Pressure 120/64 10/24/2023 4:08 PM EDT Pulse 62 10/24/2023 4:08 PM EDT Temperature - - Respiratory Rate - - Oxygen Saturation 95% 10/24/2023 4:08 PM EDT Inhaled Oxygen Concentration - - Weight 107.5 kg (237 lb 1.6 oz) 10/24/2023 4:08 PM EDT Height - - Body Mass Index 35.01 05/25/2023 8:21 AM EDT documented in this encounter Progress Notes * Lizabeth Verdin PA-C - 10/24/2023 4:12 PM EDT Chief Complaint Patient presents with Re-Check Pt c/o hands burning; tailbone stinging Pt here today with ongoing bilateral hand numbness/tingling/burning. This has been going on for a while. Pt was to have EMG but never had this done. Pt also has issues with her neck - hx of cervical fusion. Review of patient's allergies indicates: Allergen Reactions [...] day. To affected area. 60 g 0 Triamcinolone Acetonide 0.1 % External Cream (Aristocort) Apply topically to affected area 2 times a day. To affected area. 60 g 5 Ondansetron HCl 4 MG Oral Tablet (Zofran) Take 1 Tablet by mouth every 8 hours as needed for Nausea. 20 Tablet 0 Nystatin-Triamcinolone 969738-4.1 UNIT/GM-% External Cream (Mycolog) APPLY TOPICALLY TO [...] BY MOUTH AT BEDTIME 90 Tablet 1 hydrOXYzine HCl 25 MG Oral Tablet Take 1 Tablet by mouth every 6 hours as needed for Itching. 40 Tablet 2 FreeStyle Abi 2 Sensor Use as directed. [...] BEDTIME FOR RESTLESS LEGS. 90 Tablet 1 Spironolactone 25 MG Oral Tablet (Aldactone) Take 1 Tablet by mouth in the morning. 90 Tablet 3 Ozempic (1 MG/DOSE) 4 MG/3ML Subcutaneous Solution Pen-injector (Semaglutide (1 MG/DOSE)) Inject 1 mg under the skin once a week. 3 mL 1 Current Facility-Administered Medications Medication Dose Route Frequency Provider Last Rate Last Admin naloxone (Narcan Nasal) 4 MG/0.1ML nasal spray 4 mg 4 mg Nasal PRN Joseph Goodman MD Past Medical History: Diagnosis Date Abdominal wall abscess 03/11/2019 [facility] Abdominal wall abscess 08/27/2020 [facility] Atrial flutter (HCC) 08/24/2017 ER BMI 45.0-49.9, adult (HCC) CKD (chronic kidney disease), stage II 05/29/2020 EGFR 70.8 COVID-19 01/29/2021 Depressive disorder, not elsewhere classified Diverticulosis of colon 09/04/2005 DM type 2 causing neurological disease (HCC) Dyslipidemia ICD-10 update of inactive term History of nonadherence to medical treatment HTN, goal below 140/90 Hyperlipidemia LDL goal < 100 Intervertebral disc prolapse MEDICATION USE AGREEMENT 04/07/2014 hydrocodone Morbid obesity with BMI of 45.0-49.9, adult (HCC) Myalgia and myositis 2008 Fibromyalgia 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) Need for hepatitis C screening test 05/30/2014 Negative Nocturnal hypoxia 12/28/2008 desat down to 75%, 44% of time below 90%, considered severe nocturnal hypoxia Paroxysmal atrial fibrillation (HCC) Screening for HIV without presence of risk factors 08/14/2014 negative Sleep apnea 12/28/2008 Sleep Apnea Sleep apnea, obstructive 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 Social History Socioeconomic History Marital status: Spouse name: Not on file Number of children: Not on file Years of education: Not on file Highest education level: Not on file Occupational History Not on file Tobacco Use Smoking status: Former Current packs/day: 0.00 Average packs/day: 1 pack/day for 15.0 years (15.0 ttl pk-yrs) Types: Cigarettes Start date: 10/24/1974 Quit date: 10/24/1989 Years since quittin.0 Smokeless tobacco: Former Tobacco comments: quit age 24 or so Vaping Use Vaping status: Never Used Substance and Sexual Activity Alcohol use: Never Drug use: Yes Frequency: 1.0 times per week Types: Marijuana Comment: Only when having a hard time sleeping Sexual activity: Yes Partners: Female Other Topics Concern Not on file Social History Narrative 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 (Adult - for ages 18 years and over): No Does your family have trouble paying for medicine? (Household - for ages 0-17 years): Not on file Food Insecurity: No Food Insecurity (07/06/2023) Food Insecurity Do you need food for this week? (Adult - for ages 18 years and over): No Are you able to get enough food for your family? (Household - for ages 0-17 years): Not on file Does your family need food this week? (Household - for ages 0-17 years): Not on file Do you always have enough food for your family? (Household - for ages 0-17 years): Not on file Transportation Needs: No Transportation Needs (07/06/2023) Transportation Needs Do you have trouble getting a ride to medical visits or work? (Adult - for ages 18 years and over):Never True Does your family have a hard time getting a ride to doctors visits? (Household - for ages 0-17 years): Not on file Has lack of transportation kept you from medical appointments, meetings, work, or from getting things needed for daily living? Check all that apply. (Adult - for ages 18 years and over): Not on file Do you (or your family) have trouble finding or paying for a ride (transportation)? (Household - for ages 0-17 years): Not on file Social Connections: Socially Integrated (07/06/2023) Social Connections How often do you feel lonely or isolated from those around you? (Adult - for ages 18 years and over): Never Housing Stability: Low Risk (07/06/2023) Housing Stability Do you currently live in a fci or have no steady place to sleep at night? (Adult - for ages 18 years and over): No Do you think you are at risk of becoming homeless? (Adult - for ages 18 years and over): No Does your family worry about paying for your home or becoming homeless? (Household - for ages 0-17 years): Not on file Are you homeless or worried that you might be in the future? (Adult - for ages 18 years and over): Not on file Are you (or your family) homeless or worried that you might be in the future? (Household - for ages0-17 years): Not on file O:Blood pressure 120/64, pulse 62, weight 107.5 kg (237 lb 1.6 oz), SpO2 95%. GENERAL: alert, healthy, and no distress A:Numbness and tingling in both hands (Primary) Needs to have EMG. If this is ok, could be coming from neck. May need to repeat xray and get MRI. Any questions/problems, please call. If anything changes, worsens, develops new sx, please call [facility]. Follow Up: Return if symptoms worsen or fail to improve. Lizabeth Verdin PA-C documented in this encounter Plan of Treatment Upcoming Encounters Date Type Department Care Team (Late st Contact Info) Description 11/02/2023 1:20 PM EDT Pharmacy Pharmacy, [address] [place] [phone] [place] [address] 11/02/2023 1:40 PM EDT Anticoagulation Pharmacy, [address] [place] [address] [place] [address] 11/13/2023 2:45 PM EDT NeuroDiagnostic Study Neurophysiology [facility] [place] [address] Dewayne Hassan MD [address] [facility] [place] [address] 11/21/2023 11:00 AM EDT Office Visit Hepatology, [facility] [place] [address] Martina Del Toro MD [address] [place] [address] 03/20/2024 11:30 AM EST Office Visit Urology, [facility] [place] [address] Brett Fontenot MD [address] [place] [address] 04/08/2024 1:30 PM EST Office Visit Cardiology, [facility] [address] [place] [address] Day Gonsales PA-C [address] [place] [address] Scheduled Procedures Name Priority Associated Diagnoses Date/Ti [...] as of this encounter Visit Diagnoses Diagnosis Numbness and tingling in both hands- Primary documented in this encounter Care Teams Epoxy Fabrication Supervisor Relationship Specialty Start Date End Date Mariel Mckeon MD [address] [place] [address] [place] [address] PCP - General Family Medicine 03/22/23 documented as of this encounter
--- OUTSIDE RECORDS SUMMARY | 2023-11-04 04:44 | External Medical Summary ---
Author Name Unknown Address Unknown Organization K01:[facility] [address] [place] [address] Laboratory Report Ordering Provider Test Date Status CRIS GARY 09/26/2023 12:03:53 Final Observation Date Value Abnormality Reference (Units ) Status Magnesium 09/26/2023 12:03:53 2.4 1.5-2.6 (m g/dL) Final Performing Location [facility] [address] [place] [address]
--- OUTSIDE RECORDS SUMMARY | 2023-11-04 04:44 | External Medical Summary ---
Author Name Unknown Address Unknown Organization K01:[facility] [place] - [address] [place] [address] Laboratory Report Ordering Provider Test Date Status CRIS GARY 09/26/2023 12:03:53 Final Observation Date Value Abnormality Reference (Units ) Status TSH 09/26/2023 12:03:53 1.45 0.27-4.20 (uIU/mL) Final Performing Location [facility] [address] [facility] [address]
--- OUTSIDE RECORDS SUMMARY | 2023-11-04 04:44 | External Medical Summary | Summary of Care ---
Author Name Unknown Organization [facility] Address [address] [place] [address] Phone [phone] Care Team Providers Care Engine Inspector Name Role Phone Mariel Mckeon MD Primary Care Provide r Reason for Visit * Reason Comments Outpatient Testing Encounter Details Date Type Department Care Team (Late st Contact Info) Description 09/26/2023 12:10 PM EDT Laboratory Laboratory, [facility] 132 [place] [id number] [facility] [address] [place] [address] BPH with obstruction/lower urinary tract symptoms; Fatigue, unspecified type; Dizzy Allergies Active Allergy Reactions Criticality Noted Date Comments Adhesive Tape 09/20/2020 Other reaction(s): Rash Diflunisal Nausea/vomiting 02/05/2008 Apixaban Flushing 05/26/2021 Flushing on his backside - looks like a sun tom Iodinated Contrast Media 05/26/2021 Skin peels like a sun burn Rivaroxaban High 09/20/2020 Other reaction(s): Rash documented as of this encounter (statuses as of 09/26/2023) Medications Medication Sig Dispensed Refills Start Date End Date Status LORATADINE 10 MG PO TABSIndications:Nain rgic rhinitis One pill by mouth once a day as needed for allergies 30 Tab 5 06/09/201 4 Active Additional Information Patient taking differently: 10 mgOralDAILY PRN, Rhinitis, Indications: as needed for allergies, Reported on 04/13/2022 buprenorphine HCl (SUBUTEX) 8 MG Sublingual tabletIndications:fo r pain Take 1 Tablet by mouth in the morning and 1 Tablet at noon and 1 Tablet before bedtime. 0 Active Multivitamin Adult Oral TabletIndications:ov erall TipHive Take by mouth 1 Tablet daily . [...] before bedtime. Active Digestive Advantage Oral CapsuleIndications:d Hydrelis Take by mouth 1 Capsule daily . [...] To affected area. 60 g 3 Active Spironolactone 50 MG Oral Tablet (Aldactone)Indicatio ns:Chronic diastolic (congestive) heart failure (HCC),HTN, goal below 140/90 Take 1 Tablet by mouth in the morning. 90 Tablet 3 3 Active Triamcinolone Acetonide 0.1 % External Cream (Aristocort)Indicati ons:Venous stasis dermatitis of both lower extremities Apply topically to affected area 2 times a day. To affected area. 60 g 5 3 Active Ondansetron HCl 4 MG Oral Tablet (Zofran) Take 1 Tablet by mouth every 8 hours as needed for Nausea. 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,Atrial flutter, unspecified type (HCC) TAKE 1 AND 1/2 TABLETS (7.5MG) BY [...] goal of less than 7.0% (HCC) TAKE 1 AND 1/2 TABLETS BY MOUTH [...] 2 4 Active Lidocaine 5 % External OintmentIndications: Chronic right-sided low back pain with right-sided sciatica,Chronic back pain greater than 3 months duration Apply to back daily as needed for pain 212.64 g 3 4 10/11/19 24 Active FreeStyle Abi 2 SensorIndications:bl ood sugar [...] 90 Tablet 1 4 09/25/19 25 Active Hospital, Clinic, or Other Facility Administered Medication Ordered Dose Route Frequency Start Date End Date Status naloxone (Narcan Nasal) 4 MG/0.1ML nasal spray 4 mgIndications:Typical atrial flutter (HCC),PAF (paroxysmal atrial fibrillation) (HCC),Obesity hypoventilation syndrome (HCC),Chronic diastolic (congestive) heart failure (HCC),Atherosclerosis of aorta (HCC) 4 mg NA PRN 02/02/2023 Active documented as of this encounter (statuses as of 09/26/2023) Active Problems Problem Noted Date Diagnosed Date [...] as of this encounter (statuses as of 09/26/2023) Resolved Problems Problem Noted Date Diagnosed Date Resolved Date Food insecurity 02/06/2023 07/12/2023 Overview: Per [facility] Protocol Abdominal wall abscess 08/27/202002/15 Overview: [facility] Opioid dependence, uncomplicated 05/19/2020 06/07/2021 Sacroiliitis, [...] as of this encounter (statuses as of 09/26/2023) Immunizations Name Administration Dates Next Due COVID-19 mRNA, LNP-s, No Pre serve, 2-Dose Series ([employer]) 11/03/2020,10/13/2020 COVID-19, LNP-s, No Preserve , Dago-sucrose, Ages 12+ ([employer]) 05/18/2021 COVID-19, MRNA-LNP, 23-24, P F, 30 MCG/0.3 mL, 12 YRS AND ABOVE, IM (Roamer-Comirnaty) 12/21/2022 H1N1 2009 Influenza, IM 02/25/2009 Hepatitis B, 20+ yrs 04/06/2018,08/14/2014,05/30 Pneumococcal Conjugate Vacci ne, 20-valent ([id number]) 05/17/2022 Pneumococcal Polysaccharide PPV23 (Pneumovax) 02/12/2009,09/11/2008(Deferred: Patient [...] on file documented as of this encounter Plan of Treatment Upcoming Encounters Date Type Department Care Team (Late st Contact Info) Description 09/27/2023 10:10 AM EDT Office Visit Family Medicine [address] [place] [phone] Lydia Hernandez [address] [place] [address] 09/27/2023 2:10 PM EDT Anticoagulation Pharmacy, [address] [place] [address] [place] [address] 10/12/2023 3:00 PM EDT Office Visit [facility] Disorders Ctr [address] [place] [phone] Elsie Ku DO [address] [facility] [place] [address] 10/23/2023 10:00 AM EDT Office Visit Family Medicine [address] [place] [phone] Mariel Mckeon MD [address] [place] [address] [place] [address] 11/21/2023 11:00 AM EDT Office Visit Hepatology, [facility] [address] [facility] [place] [address] Martina Del Toro MD [address] [facility] [place] [address] 03/20/2024 11:30 AM EST Office Visit Urology, [facility] [address] [facility] [place] [address] Brett Fontenot MD [address] [place] [address] 04/08/2024 1:30 PM EST Office Visit Cardiology, [facility] [address] [facility] [place] [address] Day Gonsales PA-C [address] [facility] [place] [address] Pending Results Name Type Priority Associated Diagnoses Date /Time PSA Lab Routine BPH with obstruction/lower urinary tract symptoms 09/26/2023 12:03 PM EDT CBC Lab Routine Fatigue, unspecified type Dizzy 09/26/2023 12:03 PM EDT COMPREHENSIVE METABOLIC PANEL Lab Routine Fatigue, unspecified type Dizzy 09/26/2023 12:03 PM EDT LDL CHOLESTEROL (DIRECT MEASURE) Lab Routine Fatigue, unspecified type Dizzy 09/26/2023 12:03 PM EDT MAGNESIUM Lab Routine Fatigue, unspecified type Dizzy 09/26/2023 12:03 PM EDT TSH WITH FREE T4 IF INDICATED Lab Routine Fatigue, unspecified type Dizzy 09/26/2023 12:03 PM EDT Scheduled Procedures Name Priority Associated Diagnoses Date/Ti me COLONOSCOPY FLEXIBLE PROXIMAL DIAGNOSTIC Recall History of colon polyps Health Maintenance Due Date Last Done Comments HIV Screening 10/18/1975 Sigmoidoscopy 2005 Zoster Vaccines (1 of 2) 2010 DTaP,Tdap,and Td Vaccines (2 - Td or Tdap) 08/26/2020 08/26/2010, 07/28/2002 Fecal Occult Blood Test 10/28/2020 10/29/2019 Cologuard 06/12/2022 06/13/2019, 05/28, 06/08/2019 B-12 05/18/2023 05/17/2022, 10/28, 07/17/2019, Additional history exists Diabetic Foot Exam 05/18/2023 05/17/2022, 0 11/09/2020, 10/25/2018, Additional history exists HbA1c 10/20/2023 04/21/2023, 07/05/2022, 05/17/2022, Additional history exists Influenza Vaccine (FLU shot) (#1) 2023 12/21/2022, 02/04/2022, 04/12/2021, Additional history exists Albumin/Creatinine Ratio 04/21/2024 024, 05/17/2022, 04/12/2021, Additional history exists GFR 04/21/2024 04/21/2023, 12/0 09/2022, 11/09/2022, Additional history exists Diabetic Eye Exam 04/27/2024 04/28/2023, , 04/07/2020, Additional history exists Depression Screening 07/05/2024 07/06/2023 Colonoscopy 04/21/2027 04/21/2022, 04/21/2022 Colorectal Cancer Screening 04/21/2027 Hepatitis B Vaccine Completed 04/06/2018, 08/14/2014, 05/30/2014 RETIRED - COLONOSCOPY-EVERY 5 YRS AGES 18-100 Discontinued 04/21/2022, 04/21/2022 Pneumococcal Vaccine: Pediatrics (0 to 5 Years) and At-Risk Patients (6 to 64 Years) Completed 05/17/2022, 02/12/2009 Hepatitis C Screening Completed 06/07/2022, 015 COVID-19 Vaccine Completed 12/21/2022, , 11/03/2020, Additional history exists HPV (Gardasil) Vaccine Aged Out No lo nger eligible based on patient's age to complete this topic MENINGOCOCCAL (MENACTRA/MENVEO) Aged Out No longer eligible based on patient's age to complete this topic documented as of this encounter Medical Devices Not on filedocumented as of this encounter Visit Diagnoses Diagnosis BPH with obstruction/lower urinary tract symptoms Hypertrophy of prostate with urinary obstruction and other lower urinary tract symptoms (LUTS) Fatigue, unspecified type Dizzy Dizziness and giddiness documented in this encounter Care Teams Engine Inspector Relationship Specialty Start Date End Date Mariel Mckeon MD [address] [place] [address] [place] [phone] PCP - General Family Medicine 03/22/23 documented as of this encounter
--- OUTSIDE RECORDS SUMMARY | 2023-11-04 04:44 | External Medical Summary | Summary of Care ---
Author Name Unknown Organization [facility] Address [address] [place] [address] Phone [phone] Care Team Providers Care Draw Bench Operator Name Role Phone Mariel Mckeon MD Primary Care Provide r Reason for Visit * Reason Onset Date Comments Medication Adjustment 09/27/2023 Encounter Details Date Type Department Care Team (Late st Contact Info) Description 09/27/2023 Refill Cardiology, [facility] [place] [address] [place] [id number] Cookie Lynch, JONO [address] [place] [id number] HTN, goal below 140/90*; Chronic diastolic (congestive) heart failure (HCC) Allergies Active Allergy Reactions Criticality Noted Date Comments Adhesive Tape 09/20/2020 Other reaction(s): Rash Diflunisal Nausea/vomiting 02/05/2008 Apixaban Flushing 05/26/2021 Flushing on his backside - looks like a sun tom Iodinated Contrast Media 05/26/2021 Skin peels like a sun burn Rivaroxaban High 09/20/2020 Other reaction(s): Rash documented as of this encounter (statuses as of 09/27/2023) Medications Medication Sig Dispensed Refills Start Date [...] bedtime. 0 Active Multivitamin Adult Oral TabletIndications:o verAngkor Residences health Take by mouth 1 Tablet daily [...] Nausea. 20 Tablet 3 Active Nystatin-Triamcinol one 722410-3.1 UNIT/GM-% External Cream (Mycolog)Indication s:Dermatitis APPLY TOPICALLY [...] Oral Tablet (Coumadin)Indicatio ns:PAF (paroxysmal atrial fibrillation) ([facility]),Anticoagulati on management encounter,care home current use of anticoagulant therapy,Atrial flutter, unspecified type ([facility]) TAKE 1 AND 1/2 TABLETS (7.5MG) [...] hemoglobin A1c goal of less than 7.0% ([facility]) TAKE 1 AND 1/2 TABLETS BY [...] Active hydrOXYzine HCl 25 MG Oral TabletIndications:P ruanselmotus Take 1 Tablet by mouth every 6 [...] the morning. 90 Tablet 3 4 Active Spironolactone 50 MG Oral Tablet (Aldactone)Indicati [...] as of this encounter (statuses as of 09/27/2023) Active Problems Problem Noted Date Diagnosed Date [...] 10/21/2020 CKD (chronic kidney disease), stage II 1 Overview: EGFR 70.8 Type 2 diabetes mellitus [...] as of this encounter (statuses as of 09/27/2023) Resolved Problems Problem Noted Date Diagnosed Date Resolved Date Food insecurity 02/06/2023 07/12/2023 Overview: Per [facility] Protocol Abdominal wall abscess 08/27/202002/15 Overview: [facility] Opioid dependence, uncomplicated 05/19/2020 06/07/2021 Sacroiliitis, not [...] as of this encounter (statuses as of 09/27/2023) Immunizations Name Administration Dates Next Due COVID-19 mRNA, LNP-s, No Pre serve, 2-Dose Series (MemBlaze) 11/03/2020,10/13/2020 COVID-19, LNP-s, No Preserve , Dago-sucrose, Ages 12+ (Pfizer) 05/18/2021 COVID-19, MRNA-LNP, 23-24, P F, 30 MCG/0.3 mL, 12 YRS AND ABOVE, IM (PFIZER-Comirnaty) 12/21/2022 H1N1 2009 Influenza, IM 02/25/2009 Hepatitis B, 20+ yrs 04/06/2018,08/14/2014,05/30 Pneumococcal Conjugate Vacci ne, 20-valent ([id number]) 05/17/2022 Pneumococcal Polysaccharide PPV23 (Pneumovax) 02/12/2009,09/11/2008(Deferred: Patient [...] No 07/06/2023 Does the household have a [facility] source of income? (Household - for ages [...] encounter Miscellaneous Notes * Telephone Encounter - Cookie Lynch PA-C - 09/27/2023 9:21 AM EDT Signed Prescriptions: Disp Refills Spironolactone 25 MG Oral Tablet (Aldacton*90 Tab*3 Sig: Take 1 Tablet by mouth in the morning.Authorizing Provider: COOKIE LYNCH * Telephone Encounter - Isha Gurrola CMA - 09/27/2023 9:05 AM EDT Patient agreeable and verbalized understanding. * Telephone Encounter - Isha Gurrola CMA - 09/27/2023 9:04 AM EDT Labs look good. Given low BP and dizziness, recommend reducing spironolactone to 25 mg daily (currently 50 mg). Please notify patient and will need new script sent to pharmacy. -Cookie Lynch PA-C documented in this encounter Plan of Treatment Upcoming Encounters Date Type Department Care Team (Late st Contact Info) Description 09/27/2023 2:10 PM EDT Anticoagulation Pharmacy, [address] [place] [address] [place] [address] 10/12/2023 3:00 PM EDT Office Visit Sleep Disorders Ctr [facility] [address] [place] [phone] Elsie Ku DO [address] [place] [address] 10/23/2023 10:00 AM EDT Office Visit Family Medicine [address] [place] [phone] Mariel Mckeon MD [address] [place] [address] [place] [address] 11/21/2023 11:00 AM EDT Office Visit Hepatology, [facility] [place] [address] [place] [address] Martina Del Toro MD [address] [place] [address] 03/20/2024 11:30 AM EST Office Visit Urology, [facility] [place] [address] [facility] [place] [address] Brett Fontneot MD [address] [place] [phone] 04/08/2024 1:30 PM EST Office Visit Cardiology, [facility] [place] [address] [facility] [place] [address] Cookie Lynch PA-C 132 [facility] [place] [address] Scheduled Procedures Name Priority Associated Diagnoses Date/Ti [...] as of this encounter Visit Diagnoses Diagnosis HTN, goal below 140/90- Primary Unspecified essential hypertension Chronic diastolic (congestive) heart failure (HCC) documented in this encounter Care Teams Draw Bench Operator Relationship Specialty Start Date End Date Mariel Mckeon MD [address] [place] [address] [place] [phone] PCP - General Family Medicine 03/22/23 documented as of this encounter
--- OUTSIDE RECORDS SUMMARY | 2023-11-04 04:44 | External Medical Summary ---
Author Name Unknown Address Unknown Organization K0G:[facility] [address] [place] [address] Laboratory Report Ordering Provider Test Date Status CRIS GARY 09/26/2023 12:03:53 Final Observation Date Value Abnormality Reference (Units ) Status BUN 09/26/2023 12:03:53 18 6-20 (mg/dL) Final Creatinine 09/26/2023 12:03:53 1.2 0.6-1.2 (mg/dL) Final Glomerular filtration rate/1.73 sq M.predicted [Volume Rate/Area] in Serum, Plasma or Blood by Creatinine-based formula (CKD-EPI) 09/26/2023 12:03:53 71 >=60 (mL/min) Final eGFR is calculated based on the CKD-EPI 2020 equation. Sodium 09/26/2023 12:03:53 137 135-146 (m mol/L) Final Potassium 09/26/2023 12:03:53 4.2 3.5-5.1 (m mol/L) Final Cl 09/26/2023 12:03:53 96 Below low normal 98- 107 (mmol/L) Final CO2 09/26/2023 12:03:53 27 22-32 (mmo l/L) Final Anion gap 09/26/2023 12:03:53 14 7-15 (mmol /L) Final Glucose 09/26/2023 12:03:53 174 Above high normal 70 -120 (mg/dL) Final Albumin 09/26/2023 12:03:53 4.3 3.8-5.0 (g /dL) Final AST (Aspartate aminotransferase) 09/26/2023 12:03:53 25 10-50 (U/L) Fin al Alk Phos 09/26/2023 12:03:53 58 35-130 (U/ L) Final Bilirubin, Total 09/26/2023 12:03:53 1.9 Above high no rmal <=1.2 (mg/dL) Final Calcium 09/26/2023 12:03:53 9.2 8.4-10.2 ( mg/dL) Final Protein 09/26/2023 12:03:53 7.3 6.0-8.3 (g /dL) Final ALT (Alanine aminotransferase) 09/26/2023 12:03:53 29 10-50 (U/L) Raul obrien Performing Location [facility] [address] [facility] [address]
--- OUTSIDE RECORDS SUMMARY | 2023-11-04 04:44 | External Medical Summary ---
Author Name Unknown Address Unknown Organization K01:[facility] - [address] [place] [address] Laboratory Report Ordering Provider Test Date Status BRIANA PHILIP 09/26/2023 12:03:53 Final Observation Date Value Abnormality Reference (Units ) Status PSA 09/26/2023 12:03:53 0.02 <4.10 (ng/ mL) Final Performing Location [facility] - [address] [place] [address]
--- OUTSIDE RECORDS SUMMARY | 2023-11-04 04:44 | External Medical Summary | Summary of Care ---
Author Name Unknown Organization [facility] Address [address] [place] [address] Phone [phone] Care Team Providers Care Rail Splitter Name Role Phone Mariel Mckeon MD Primary Care Provide r Reason for Visit * Reason Comments Dosage Adjustment In Person (Anticoag Cl inic) Encounter Details Date Type Department Care Team (Latest Contact Info) Description 09/27/2023 2:10 PM EDT Anticoagulation Pharmacy, [address] [place] [phone] [place] [address] Anticoagulation management encounter*; PAF (paroxysmal atrial fibrillation) ([facility]) Allergies Active Allergy Reactions Criticality Noted Date [...] 0 Active Multivitamin Adult Oral TabletIndications:ov erall 12Bis Take by mouth 1 Tablet daily . [...] before bedtime. Active Digestive Advantage Oral CapsuleIndications:d [employer] Take by mouth 1 Capsule daily . [...] Nausea. 20 Tablet 3 Active Nystatin-Triamcinolo ne 116951-4.1 UNIT/GM-% External Cream (Mycolog)Indications :Dermatitis APPLY TOPICALLY [...] Oral Tablet (Coumadin)Indication s:PAF (paroxysmal atrial fibrillation) ([facility]),Anticoagulatio n management encounter,USP current use of anticoagulant therapy,Atrial flutter, unspecified type ([facility]) TAKE 1 AND 1/2 TABLETS (7.5MG) [...] hemoglobin A1c goal of less than 7.0% ([facility]) TAKE 1 AND 1/2 TABLETS BY [...] Pharmacy Protocol Abdominal wall abscess 08/27/202002/15 Overview: [facility] Opioid dependence, uncomplicated 05/19/2020 06/07/2021 Sacroiliitis, not [...] mRNA, LNP-s, No Pre serve, 2-Dose Series (OLX) 11/03/2020,10/13/2020 COVID-19, LNP-s, No Preserve , Dago-sucrose, Ages 12+ (Pfizer) 05/18/2021 COVID-19, MRNA-LNP, 23-24, P F, 30 MCG/0.3 mL, 12 YRS AND ABOVE, IM (PFIZER-Comirnat) 12/21/2022 H1N1 2009 Influenza, IM 02/25/2009 Hepatitis B, 20+ yrs 04/06/2018,08/14/2014,05/30 Pneumococcal Conjugate Vacci ne, 20-valent ([id number]) 05/17/2022 Pneumococcal Polysaccharide PPV23 (Pneumovax) 02/12/2009,09/11/2008(Deferred: Patient [...] this encounter Progress Notes * Saray Garcia, [facility] - 09/27/2023 1:52 PM EDT Medication Therapy Disease Management - Anticoagulation Patient: Rakesh Redd | : 1960 Subjective Patient-Reported Symptoms: Patient Findings Negatives: Signs/symptoms of thrombosis, Signs/symptoms of bleeding, Change in health, Change in alcohol use, Change in activity, Upcoming invasive procedure, Missed doses, Extra doses, Change in medications, Change in diet/appetite, Bruising Objective Current Warfarin Dose As of 09/27/2023 Warfarin maintenance plan: 5 mg (5 mg x 1) every Mon, Fri; 7.5 mg (5 mg x 1.5) all other days INR Result As of 09/27/2023 INR goal: 2.0-3.0 INR used for dosin.7 (09/27/2023) Assessment & Plan Warfarin Plan As of 09/27/2023 Full warfarin instructions: 5 mg every Mon, Fri; 7.5 mg all other days No change documented: Saray Garcia RPh Next INR check: 11/01/2023 Repeat PT/INR in 5 week(s) Weekly dose: not changed Additional Dosing Information: Description Takes at midnight Saray Garcia RPh Clinical Pharmacist 09/27/2023, 1:52 PM documented in this encounter Plan of Treatment Upcoming Encounters Date Type Department Care Team (Late st Contact Info) Description 10/12/2023 3:00 PM EDT Office Visit Sleep Disorders Ctr [facility] [address] [place] [phone] Elsie Ku DO [address] [place] [address] 10/23/2023 10:00 AM EDT Office Visit Family Medicine [address] [place] [phone] Mariel Mckeon MD [address] [place] [address] [place] [address] 11/01/2023 1:30 PM EDT Anticoagulation Pharmacy, [address] [place] [address] [place] [address] 11/21/2023 11:00 AM EDT Office Visit [facility], [facility] [place] [address] Martina Del Toro MD [address] [place] [address] 03/20/2024 11:30 AM EST Office Visit Urology, [facility] [address] [place] [address] Brett Fontenot MD [address] [place] [address] 04/08/2024 1:30 PM EST Office Visit Cardiology, [facility] [address] [place] [address] Day Gonsales PA-C [address] [place] [address] Scheduled Procedures Name Priority Associated Diagnoses Date/Ti [...] Comments INR FINGERSTICK, POINT OF CARE STAT 09/27/2023 1:57 PM EDT PAF (paroxysmal atrial fibrillation) (HCC) Anticoagulation management encounter documented in this encounter Results * INR FINGERSTICK, POINT OF CARE (09/27/2023 1:57 PM EDT) Fingerstick INR 2.7 INR 1:59 PM EDT [facility] Blood 09/27/2023 1:57 PM EDT 09/27/2023 1:59 PM EDT Narrative [facility] - 09/27/2023 1:59 PM EDT Therapeutic ranges for non-operative patients: Prophylaxsis/treatment of DVT: (Range:2.0-3.0) Treatment of pulmonary embolism:(Range:2.0-3.0) Prevention of systemic embolism from: -tissue heart valves -acute myocardial infarction -valvular heart disease -atrial fibrillation (Range: 2.0-3.0) Mechanical prosthetic valves: (Range: 2.5-3.5) Saray Garcia [facility] POINT OF CARE TEST DOCKED DEVICE UNSOLICITED RESULTS [facility] [address] [place] [address] [place] [address] documented in this encounter Visit Diagnoses Diagnosis Anticoagulation management encounter- Primary Encounter for therapeutic drug monitoring PAF (paroxysmal atrial fibrillation) (HCC) Atrial fibrillation documented in this encounter Care Teams Rail Splitter Relationship Specialty Start Date End Date Mariel Mckeon MD [address] [place] [address] [place] [address] PCP - General Family Medicine 03/22/23 documented as of this encounter"
--- OUTSIDE RECORDS SUMMARY | 2023-11-04 04:44 | External Medical Summary ---
Author Name Unknown Address Unknown Organization : Laboratory Report Ordering Provider Test Date Status STEFFANIE BARAJAS 09/27/2023 13:57:59 Final Therapeutic ranges for non-o perative patients:
Prophylaxsis/treatment of DVT: (Range:2.0-3.0)
Treatment of pulmonary embolism:(Range:2.0-3.0)
Prevention of systemic embolism from:
-tissue heart valves
-acute myocardial infarction
-valvular heart disease
-atrial fibrillation
(Range: 2.0-3.0)
Mechanical prosthetic valves: (Range: 2.5-3.5) Observation Date Value Abnormality Reference (Units ) Status INR in Capillary blood by Coagulation assay 09/27/2023 13:57:59 2.7 (INR) Final Performing Location
--- OUTSIDE RECORDS SUMMARY | 2023-11-04 04:44 | External Medical Summary ---
Author Name Unknown Address Unknown Organization K01:[facility] - [address] [place] [address] Laboratory Report Ordering Provider Test Date Status CRIS GARY 09/26/2023 12:03:53 Final Observation Date Value Abnormality Reference (Units ) Status LDL, (direct) 09/26/2023 12:03:53 81 <=129 (mg/dL) Final LDL Cholesterol Reference Ra nges (mg/dL):
<70 Target level for high risk ASCVD patient
<100 Optimal for general population
100-129 Near optimal for general population
130-159 Borderline high
160-189 High
>=190 Very high Performing Location [facility] - [address] [place] [address]
[2023-11-04] MEDS: SODIUM CHLORIDE 0.9% 1,000 ML IV SCH ×2 (05:22→12:28)
[2023-11-04] MEDS: diphenhydrAMINE 50 MG/ML VIAL IV ONE (05:33)
[2023-11-04] MEDS: methylPREDNISolone 125 MG/2 ML VIAL IV ONE (05:33)
[2023-11-04 05:45] LABS: Basophils # (auto) 0.05 K/uL (0.00-0.20); Basophils % (auto) 0.3 %; Hematocrit (blood only) 47.4 % (42.0-52.0); Hemoglobin 15.5 g/dl (14.0-18.0); Immature Granulocytes # (auto) 0.09 K/uL (0.01-0.20); Immature Granulocytes % (auto) 0.5 %; Lymphocytes # (auto) 1.72 K/uL (1.20-3.40); Lymphocytes % (auto) 9.8 %; Mean Corpuscular Hemoglobin 30.9 pg (25.0-34.0); Mean Corpuscular Hgb Conc 32.7 g/dL (32.0-36.0); Mean Corpuscular Volume 94.6 fL (80.0-100.0); Mean Platelet Volume 10.6 fL (9.4-12.4); Monocytes # (auto) 1.42 K/uL (0.11-0.59); Monocytes % (auto) 8.1 %; Neutrophils # (auto) 14.28 K/uL (1.40-6.50); Neutrophils % (auto) 81.3 %; Platelet Count 262 K/uL (130-400); RDW Coefficient of Variation 14.8 % (11.5-14.5); RDW Standard Deviation 51.7 fL (36.4-46.3); Red Blood Count 5.01 M/uL (4.70-6.10); White Blood Count 17.56 K/ul (4.8-10.8)
[2023-11-04 05:55] LABS: Alanine Aminotransferase 39 U/L (7-52); Albumin Globulin Ratio 1.4 (0.9-2); Albumin Level 4.6 gm/dl (3.4-5.0); Alkaline Phosphatase 55 U/L (34-104); Anion Gap 11 (3-11); Aspartate Aminotransferase 58 U/L (13-39); Bilirubin,Total 2.6 mg/dl (0.2-1.0); Blood Urea Nitrogen 16 mg/dl (6-23); Calcium 9.1 mg/dl (8.6-10.3); Carbon Dioxide 27 mmol/L (21-32); Chloride 99 mmol/L (98-107); Creatine Kinase 1436 U/L (30-223); Est GFR (African American) 78.9 ml/min; Est GFR (Non-African American) 68.1 ml/min; Globulin 3.4 gm/dl (2.5-4.0); Glucose 210 mg/dl (70-99(Fasting)); Potassium 3.9 mmol/L (3.5-5.1); Sodium 137 mmol/L (136-145)
[2023-11-04 06:00] LABS: INR 2.9 (0.9-1.1); Prothrombin Time 28.3 Seconds (9.0-12.0)
[2023-11-04 06:02] LABS: Troponin I High Sensitivity 17.1 pg/ml (0-20)
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
[2023-11-04 08:55] LABS: Appearance Urine Clear (Clear); Bilirubin Urine Negative (Negative); Blood Urine Negative (Negative); Color Urine Yellow; Glucose Urine UA 3+ (Negative); Ketones Urine Negative (Negative); Leukocyte Esterase Urine Negative (Negative); Nitrite Urine Negative (Negative); Protein Urine Negative (Negative); Urobilinogen Urine Negative (Negative); pH Urine 5.5 (4.5-7.5)
[2023-11-04] MEDS: AMPICILLIN/SULBACTAM SOD 3,000 MG/100 ML BAG IV STA (09:20)
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
[2023-11-04] MEDS: buprenorphine HCL 8 MG SUBL SL STA (10:40)
[2023-11-04] MEDS: ONDANSETRON INJ 2 MG/ML 2 ML VIAL ONE (10:40)
[2023-11-04] MEDS: GABAPENTIN 800 MG TAB PO SCH (10:40)
[2023-11-04] MEDS: ONDANSETRON INJ 2 MG/ML 2 ML VIAL IV STA (10:40)
[2023-11-04] MEDS ORDERED: ALBUTEROL HFA 8 GM INHALER INH PRN (11:40)
[2023-11-04] MEDS ORDERED: ONDANSETRON INJ 2 MG/ML 2 ML VIAL IV PRN (11:40)
[2023-11-04] MEDS ORDERED: DEXTROSE 50% 50 ML SYRINGE IV PRN (11:40)
[2023-11-04] MEDS ORDERED: CARBOHYDRATES FOR HYPOGLYCEMIA PO PRN (11:40)
[2023-11-04] MEDS ORDERED: ACETAMINOPHEN 325 MG TAB PO PRN (11:40)
[2023-11-04] MEDS ORDERED: GLUCOSE 10 TAB/TUBE PO PRN (11:40)
[2023-11-04] MEDS ORDERED: GLUCAGON FOR INJ 1 MG VIAL SQ PRN (11:40)
[2023-11-04] MEDS ORDERED: GLUCOSE 40% GEL 15 GM TUBE PO PRN (11:40)
[2023-11-04] MEDS ORDERED: SODIUM CHLORIDE 0.9% 250 ML IV PRN (11:54)
[2023-11-04] MEDS: LACTATED RINGER'S 1,000 ML IV SCH (12:02)
[2023-11-04] MEDS: METOPROLOL SUCC 50MG EXT REL TAB PO SCH (12:03)
[2023-11-04] MEDS: PANTOprazole 40 MG TAB PO SCH (12:27)
[2023-11-04] MEDS: INSULIN ASPART PER UNIT CHARGE SC SCH (12:59)
[2023-11-04] MEDS: MoRPHine SULFATE 4 MG/ML 1 ML CARP\\VIAL IV PRN (13:28)
[2023-11-04 17:03] LABS: Hematocrit (blood only) 39.5 % (42.0-52.0); Hemoglobin 13.5 g/dl (14.0-18.0)
[2023-11-04] MEDS: PHYTONADIONE 5 MG TAB PO ONE (17:58)
[2023-11-04] MEDS: oxyCODONE/ACETAMINOPHEN 5mg/325mg TAB PO PRN (18:00)
[2023-11-04] MEDS: TAMSULOSIN HCL 0.4 MG CAP PO SCH (20:45)
[2023-11-04] MEDS: PRAMIPEXOLE DIHYDROCHLO 0.25 MG TAB PO SCH (20:46)
[2023-11-04] MEDS: LANTUS PER UNIT CHARGE SQ SCH (21:17)
[2023-11-04] MEDS: DOCUSATE SODIUM/SENNA 50/8.6MG TAB PO SCH (21:18)
[2023-11-04] MEDS: POLYETHYLENE (MIRALAX) 17 GM PACK PO PRN (21:18)
[2023-11-04] MEDS: LIDOCAINE 4% CREAM 15 GM TUBE EXT SCH (22:10)
[2023-11-04 23:00] LABS: Hematocrit (blood only) 37.3 % (42.0-52.0); Hemoglobin 12.7 g/dl (14.0-18.0)
[2023-11-05 06:13] LABS: Hematocrit (blood only) 32.8 % (42.0-52.0); Hemoglobin 11.1 g/dl (14.0-18.0); Mean Corpuscular Hemoglobin 31.4 pg (25.0-34.0); Mean Corpuscular Hgb Conc 33.8 g/dL (32.0-36.0); Mean Corpuscular Volume 92.7 fL (80.0-100.0); Mean Platelet Volume 10.5 fL (9.4-12.4); Platelet Count 187 K/uL (130-400); RDW Coefficient of Variation 14.6 % (11.5-14.5); RDW Standard Deviation 50.7 fL (36.4-46.3); Red Blood Count 3.54 M/uL (4.70-6.10); White Blood Count 13.19 K/ul (4.8-10.8)
[2023-11-05 06:37] LABS: Albumin Globulin Ratio 1.4 (0.9-2); Albumin Level 3.4 gm/dl (3.4-5.0); BUN Creatinine Ratio 18.4 (10-20); Bilirubin,Total 3.8 mg/dl (0.2-1.0); Calcium 7.8 mg/dl (8.6-10.3); Creatinine Clr Calc Pharmacy 123.6 ml/min; Est GFR (African American) 112.5 ml/min; Est GFR (Non-African American) 97.1 ml/min; Globulin 2.5 gm/dl (2.5-4.0); INR 1.7 (0.9-1.1); Magnesium 1.8 mg/dl (1.7-2.4); Potassium 4.2 mmol/L (3.5-5.1); Prothrombin Time 17.7 Seconds (9.0-12.0); Total Protein 5.9 gm/dl (6.0-8.3)
[2023-11-05 07:06] LABS: Estimated Average Glucose 160 mg/dl; Hemoglobin A1C 7.2 % (4.5-5.6)
[2023-11-05] MEDS: FINASTERIDE 5 MG TAB PO SCH (07:19)
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
[2023-11-05] MEDS: buprenorphine HCL 8 MG SUBL SL SCH (08:03)
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
--- NOTE | 2023-11-05 21:50 | Electrocardiogram Report ---
Test Reason : Blood Pressure : */* mmHG Vent. Rate : 107 BPM Atrial Rate : * BPM P-R Int : * ms QRS Dur : 78 ms QT Int : 340 ms P-R-T Axes : * -18 25 degrees QTcB Int : 453 ms Atrial fibrillation with rapid ventricular response Inferior infarct , age undetermined Abnormal ECG When compared with ECG of 17-Sep-2022 13:22, Inferior infarct is now Present Confirmed by Jamar Chambers [id number]) on 11/05/2023 9:49:56 PM Referred By: Confirmed By: Jamar Chambers
[2023-11-06 06:25] LABS: Basophils # (auto) 0.02 K/uL (0.00-0.20); Basophils % (auto) 0.2 %; Eosinophils # (auto) 0.06 K/uL (0.00-0.50); Eosinophils % (auto) 0.6 %; Hematocrit (blood only) 28.2 % (42.0-52.0); Hemoglobin 9.4 g/dl (14.0-18.0); Immature Granulocytes # (auto) 0.05 K/uL (0.01-0.20); Immature Granulocytes % (auto) 0.5 %; Lymphocytes # (auto) 1.49 K/uL (1.20-3.40); Lymphocytes % (auto) 13.7 %; Mean Corpuscular Hemoglobin 31.8 pg (25.0-34.0); Mean Corpuscular Hgb Conc 33.3 g/dL (32.0-36.0); Mean Corpuscular Volume 95.3 fL (80.0-100.0); Mean Platelet Volume 10.8 fL (9.4-12.4); Monocytes # (auto) 0.94 K/uL (0.11-0.59); Monocytes % (auto) 8.6 %; Neutrophils # (auto) 8.33 K/uL (1.40-6.50); Neutrophils % (auto) 76.4 %; Platelet Count 167 K/uL (130-400); RDW Coefficient of Variation 14.6 % (11.5-14.5); RDW Standard Deviation 50.9 fL (36.4-46.3); Red Blood Count 2.96 M/uL (4.70-6.10); White Blood Count 10.89 K/ul (4.8-10.8)
[2023-11-06 06:46] LABS: BUN Creatinine Ratio 17.5 (10-20); Calcium 7.6 mg/dl (8.6-10.3); Creatinine Clr Calc Pharmacy 147.8 ml/min; Est GFR (African American) 121.6 ml/min; Est GFR (Non-African American) 104.9 ml/min; Potassium 3.8 mmol/L (3.5-5.1)
[2023-11-06 06:50] LABS: INR 1.1 (0.9-1.1); Prothrombin Time 11.9 Seconds (9.0-12.0)
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
[2023-11-07 09:01] LABS: Basophils # (auto) 0.03 K/uL (0.00-0.20); Basophils % (auto) 0.3 %; Eosinophils # (auto) 0.12 K/uL (0.00-0.50); Eosinophils % (auto) 1.3 %; Hematocrit (blood only) 27.8 % (42.0-52.0); Hemoglobin 9.4 g/dl (14.0-18.0); Immature Granulocytes # (auto) 0.04 K/uL (0.01-0.20); Immature Granulocytes % (auto) 0.4 %; Lymphocytes # (auto) 1.56 K/uL (1.20-3.40); Lymphocytes % (auto) 17.3 %; Mean Corpuscular Hemoglobin 31.9 pg (25.0-34.0); Mean Corpuscular Hgb Conc 33.8 g/dL (32.0-36.0); Mean Corpuscular Volume 94.2 fL (80.0-100.0); Mean Platelet Volume 10.5 fL (9.4-12.4); Monocytes # (auto) 0.77 K/uL (0.11-0.59); Monocytes % (auto) 8.5 %; Neutrophils % (auto) 72.2 %; Platelet Count 204 K/uL (130-400); RDW Coefficient of Variation 14.8 % (11.5-14.5); RDW Standard Deviation 50.8 fL (36.4-46.3); Red Blood Count 2.95 M/uL (4.70-6.10); White Blood Count 9.02 K/ul (4.8-10.8)
[2023-11-07 11:24] VITALS: RESP 20
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
[2023-11-07 15:36] VITALS: PULSE 71; TEMP 97.5; O2SAT 97
[2023-11-07 15:42] VITALS: BP 148/81
[2023-11-07] MEDS ORDERED: WARFARIN SOD 5 MG TAB PO SCH (16:00)
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
[2023-11-10] MEDS ORDERED: WARFARIN SOD 7.5 MG TAB PO SCH (16:00)
== END 2023-11-07 16:22 | disposition home or self-care (01) | DRG 565 ==
LOC: ED 04:36 → SUATTDRO 10:03 → 2N 10:03